=== PATIENT | female | born 1930 ===

== ENCOUNTER 2017-04-29 23:09 | Inpatient (IN) | payer MEDICARE, OTHER ==
[2017-04-29 23:19] VITALS: BMI 25.8
--- NOTE | 2017-04-29 23:37 | ED PDOC ---
Arrival/HPI - General Time Seen by Provider: 04/29/17 23:11 Historian: Family (Daughter) - History of Present Illness Narrative History of Present Illness (Text): 04/29/17 23:34 Vianey Larose is an 86 year old female, whose past medical history includes hypertension, hyperlipidemia, dementia, and NIDDM, who presents to the Emergency department accompanied by daughter complaining of hyperglycemia and foot swelling today. Daughter reports tonight patient had a blood sugar of 570 at the [facility]. Daughter also reports bilateral foot swelling throughout the day. Limited HPI and ROS secondary to patient's dementia. Time/Duration: Other (today) Symptom Onset: Gradual Symptom Course: Unchanged Activities at Onset: Light Context: Home (longterm) Past Medical History - Provider Review Nursing Documentation Reviewed: Yes - Infectious Disease Hx of Infectious Diseases: None - Tetanus Immunization Tetanus Immunization: Up to Date - Past Medical History Past Medical History: No Previous - Cardiac Hx Cardiac Disorders: Yes Hx Hypertension: Yes - Pulmonary Hx Respiratory Disorders: No - Neurological Hx Neurological Disorder: Yes Hx Alzheimer's Disease: Yes Hx Dementia: Yes Other/Comment: bells palsy - HEENT Hx HEENT Disorder: Yes (wears rx glasses) - Renal Hx Renal Disorder: No - Endocrine/Metabolic Hx Diabetes Mellitus Type 2: Yes (iddm) - Hematological/Oncological Hx Blood Disorders: Yes Hx Anemia: Yes - Integumentary Hx Dermatological Disorder: No - Musculoskeletal/Rheumatological Hx Falls: Yes - Gastrointestinal Hx Gastrointestinal Disorders: No - Genitourinary/Gynecological Hx Genitourinary Disorders: Yes Hx Incontinence: Yes Hx Urinary Tract Infection: Yes - Psychiatric Hx Psychophysiologic Disorder: No Hx Substance Use: No - Past Surgical History Past Surgical History: Non-Contributing - Surgical History Hx Hysterectomy: Yes - Anesthesia Hx Anesthesia: Yes Hx Anesthesia Reactions: No Hx Malignant Hyperthermia: No - Suicidal Assessment Feels Threatened In Home Enviroment: No Family/Social History - Physician Review Nursing Documentation Reviewed: Yes Family/Social History: Unknown Family HX Smoking Status: Never Smoked Hx Alcohol Use: No Hx Substance Use: No Hx Substance Use Treatment: No Allergies/Home Meds Allergies/Adverse Reactions: Allergies lisinopril Allergy (Verified 04/29/17 23:21) FATIGUE Home Medications: Home Meds Medication Instructions Recorded Confirmed Amlodipine Besylate [Norvasc] 5 mg PO DAILY 01/26/12 04/29/17 Insulin Human Isophane (NPH)1 3 units SC BID 01/26/12 04/29/17 [Novolin 70/30 70 U/ml-30 U/ml 10 ml] Risperidone 0.5 mg PO DAILY 01/26/12 04/29/17 Memantine [Namenda] 5 mg PO BID 08/25/14 04/29/17 Aspirin [Aspirin Chewable] 81 mg PO DAILY 04/29/17 04/29/17 Atorvastatin [Lipitor] 20 mg PO DAILY 04/29/17 04/29/17 Calcium Carbonate/Vitamin D3 1 tab PO BID 04/29/17 04/29/17 [Caltrate 600 + D Soft Chew Tab] Docusate [Colace] 200 mg PO DAILY 04/29/17 04/29/17 Folic Acid/Vit B Complex and C 1 tab PO DAILY 04/29/17 04/29/17 [Maia-Ester Tablet] Insulin Detemir [Levemir] 15 units SQ Q12H 04/29/17 04/29/17 Montelukast [Singulair] 10 mg PO DAILY 04/29/17 04/29/17 Review of Systems - Review of Systems Systems not reviewed;Unavailable: Dementia Musculoskeletal: Other (+bilateral foot swelling) Hemo/Lymphatic: Other (+hyperglycemia) Physical Exam Vital Signs Reviewed: Yes Vital Signs Temp Pulse Resp BP Pulse Ox 04/30/17 16:00 98.2 F 88 18 146/74 98 04/30/17 11:53 185/90 H 04/30/17 07:17 98.0 F 95 H 19 164/74 H 98 04/30/17 06:21 98.5 F 90 20 175/90 H 04/30/17 05:36 98 F 95 H 20 164/74 H 04/30/17 05:18 97.5 F L 95 H 20 158/77 H 04/30/17 03:56 18 04/30/17 02:22 88 18 168/76 H 99 04/29/17 23:26 98.7 F 94 H 18 184/89 H 99 Temperature: Afebrile Blood Pressure: Hypertensive Pulse: Regular Respiratory Rate: Normal Appearance: Positive for: Well-Appearing, Non-Toxic, Comfortable Pain Distress: None Mental Status: Positive for: other (Alert) - Systems Exam Head: Present: Atraumatic, Normocephalic Pupils: Present: PERRL Extroacular Muscles: Present: EOMI Conjunctiva: Present: Normal Mouth: Present: Moist Mucous Membranes Neck: Present: Normal Range of Motion Respiratory/Chest: Present: Clear to Auscultation, Good Air Exchange. No: Respiratory Distress, Accessory Muscle Use Cardiovascular: Present: Regular Rate and Rhythm, Normal S1, S2. No: Murmurs Abdomen: Present: Normal Bowel Sounds. No: Tenderness, Distention, Peritoneal Signs Back: Present: Normal Inspection Upper Extremity: Present: Normal Inspection. No: Cyanosis, Edema Lower Extremity: Present: NORMAL PULSES, Normal ROM, Swelling (Bilateral foot swelling), Neurovascularly Intact, Capillary Refill < 2 s. No: Edema, CALF TENDERNESS, Cyanosis, Tenderness, Erythema, Deformity, Temperature Abnormalties Neurological: Present: GCS=15, CN II-XII Intact, Speech Normal Skin: Present: Warm, Dry, Normal Color. No: Rashes Psychiatric: Present: Alert Medical Decision Making ED Course and Treatment: 04/29/17 23:34 Impression: 86 year old female brought in for hyperglycemia and bilateral foot swelling today. Plan: -- EKG -- Labs, troponin -- Wound culture -- UA -- Reassess and disposition Prior Visits: Notes and results from previous visits were reviewed. On 04/05/2016, pt was seen in the Emergency department for aggressive behavior and hyperglycemia. Pt was admitted to the hospital for further evaluation. Progress Notes: Reviewed EKG, NSR at 90 bpm. Non-specific ST/T wave changes. 04/30/17 01:39 Reviewed labs, hemoglobin: 7.7, hematocrit: 22.3. Will tranfuse pt. Blood type and screen/crossmatch ordered. 04/30/17 01:[address] Son, who is aware and agrees with plan. Accepts pt in to her service. Pt will go to [facility] observation for anemia and renal insufficiency. - Lab Interpretations Microbiology Results: Microbiology Results 04/29/17 23:35 Foot - Right Gram Stain - Final Lab Results: 04/30/17 00:30 04/30/17 00:30 Lab Results 04/30/17 00:30: PT 11.0, INR 1.02, APTT 24.5 04/30/17 00:30: Sodium 139, Potassium 4.5, Chloride 102, Carbon Dioxide 26, Anion Gap 16, BUN 71 H, Creatinine 4.5 H, Est GFR ( Amer) 11, Est GFR ( Non-Af Amer) 9, Random Glucose 246 H, Calcium 9.9, Total Bilirubin 0.3, AST 33, ALT 33, Alkaline Phosphatase 82, Troponin I < 0.01 D, Total Protein 7.4, Albumin 4.0, Globulin 3.4, Albumin/Globulin Ratio 1.2 04/30/17 00:30: WBC 9.7, RBC 2.60 L, Hgb 7.7 L, Hct 22.3 L, MCV 85.8, MCH 29.6, MCHC 34.5, RDW 13.4, Plt Count 213, MPV 9.6, Gran % 56.6, Lymph % (Auto) 32.7, [place] % (Auto) 6.6 H, Eos % (Auto) 3.9, Baso % (Auto) 0.2, Gran # 5.48, Lymph # 3.2, [place] # 0.6, Eos # 0.4, Baso # 0.02 04/29/17 23:13: POC Glucose (mg/dL) 351 H I have reviewed the lab results: Yes - EKG Interpretation Interpreted by ED Physician: Yes Type: 12 lead EKG - Medication Orders Current Medication Orders: Acetaminophen (Tylenol 325mg Tab) 650 mg PO Q4H PRN PRN Reason: Fever >100.5 F Amlodipine Besylate (Norvasc) 10 mg PO DAILY [facility] Last Admin: 04/30/17 11:53 Dose: 10 mg MAR Blood Pressure Document 04/30/17 11:53 LMN (Rec: 04/30/17 11:55 LMN [id number]) Blood Pressure Blood Pressure (100/60-150/90) 185/90 Aspirin (Aspirin Chewable) 81 mg PO DAILY [facility] Last Admin: 04/30/17 11:53 Dose: 81 mg Atorvastatin Calcium (Lipitor) 20 mg PO DIN [facility] Last Admin: 04/30/17 17:26 Dose: 20 mg Calcium Carbonate (Caltrate) 600 mg PO BID [facility] Last Admin: 04/30/17 17:27 Dose: 600 mg Carvedilol (Coreg) 6.25 mg PO BID [facility] Last Admin: 04/30/17 18:51 Dose: Comments: First dose given late Docusate Sodium (Colace) 200 mg PO DAILY [facility] Last Admin: 04/30/17 11:52 Dose: 200 mg Sodium Chloride (Sodium Chloride 0.9%) 1,000 mls @ 60 mls/hr IV .[id number] [facility] Last Admin: 04/30/17 19:01 Dose: 60 mls/hr eMAR Start Stop Document 04/30/17 19:01 [facility] (Rec: 04/30/17 19:01 [id number] Intravenous Solution Start Date 04/30/17 Start Time 14:30 Insulin Human Regular (Humulin R Low) 0 units SC ACHS [facility] PRN Reason: Protocol Last Admin: 04/30/17 16:28 Dose: 1 units MAR Blood Glucose Document 04/30/17 16:28 LMN (Rec: 04/30/17 16:29 [id number]) Blood Glucose Finger Stick Blood Glucose (70-120) 172 Subcutaneous Administrations Document 04/30/17 16:28 LMN (Rec: 04/30/17 16:29 [id number]) Injection Site MAR Injection Site Left Arm Charges for Administration # of Subcutaneous Administrations 1 Magnesium Hydroxide (Milk Of Magnesia) 30 ml PO DAILY PRN PRN Reason: Constipation Memantine (Namenda) 10 mg PO DAILY [facility] Last Admin: 04/30/17 11:52 Dose: 10 mg Montelukast Sodium (Singulair) 10 mg PO HS [facility] Risperidone (Risperdal Tab) 0.5 mg PO DAILY [facility] PRN Reason: Protocol Last Admin: 04/30/17 11:53 Dose: 0.5 mg Behavioural Document 04/30/17 11:53 LMN (Rec: 04/30/17 11:53 [id number]) Maintenance Maintenance Dose Yes Nonmedicinal Nonmedicinal Interventions Redirect Therapeutic Communication Activity Give food/fluids Re-Assess: Reassess Psych Meds Document 04/30/17 12:53 LMN (Rec: 04/30/17 19:01 [id number] Reassess Psych Med Ineffective-LIP notifed Senna/Docusate Sodium (Senokot S 50 Mg-8.6 Mg) 2 tab PO HS PRN PRN Reason: Constipation Vitamin B Complex/Vit C/Folic Acid (Nephro-Ester) 1 tab PO 0800 [facility] Last Admin: 04/30/17 11:53 Dose: 1 tab Vitamin D (Vitamin D 400 Intl Units Tab) 400 intlu PO BID [facility] Last Admin: 04/30/17 18:52 Dose: 400 intlu Zolpidem Tartrate (Ambien) 5 mg PO HS [facility] PRN Reason: Protocol Discontinued Medications Alprazolam (Xanax) 0.5 mg PO ONCE ONE PRN Reason: Protocol Stop: 04/30/17 13:16 Last Admin: 04/30/17 13:42 Dose: 0.5 mg Behavioural Document 04/30/17 13:42 LMN (Rec: 04/30/17 13:42 LMN [id number]) Maintenance Maintenance Dose No Nonmedicinal Nonmedicinal Interventions Redirect Therapeutic Communication Behavior Behavior for Medication: Anxiety Continuous pacing/restlessness Dangers to self/others Pulling IV lines/tubes/ catheter Re-Assess: Reassess Psych Meds Document 04/30/17 14:42 LMN (Rec: 04/30/17 19:02 LMN [id number]) Reassess Psych Med Effective Lorazepam (Ativan) 0.5 mg IVP ONCE ONE PRN Reason: Protocol Stop: 04/30/17 02:31 Last Admin: 04/30/17 03:20 Dose: 0.5 mg IVP Administration Document 04/30/17 03:20 DANICA (Rec: 04/30/17 03:20 DANICA [id number]) Charges for Administration # of IVP Administrations 1 - Scribe Statement The provider has reviewed the documentation as recorded by the Scribazael Melendez All medical record entries made by the Scribazael were at my direction and personally dictated by me. I have reviewed the chart and agree that the record accurately reflects my personal performance of the history, physical exam, medical decision making, and the department course for this patient. I have also personally directed, reviewed, and agree with the discharge instructions and disposition. Disposition/Present on Arrival - Present on Arrival Any Indicators Present on Arrival: No History of DVT/PE: No History of Uncontrolled Diabetes: No Urinary Catheter: No History Surgical Site Infection Following: None - Disposition Have Diagnosis and Disposition been Completed?: Yes Diagnosis: Renal insufficiency, Anemia Disposition Time: 02:20 Condition: FAIR
[2017-04-30 00:57] LABS: BASO # 0.02 K/mm3 (0.0-2.0); BASO % 0.2 % (0.0-3.0); EOS # 0.4 (0.0-0.7); EOS % 3.9 % (1.5-5.0); GRAN # 5.48 (1.4-6.5); GRAN % 56.6 % (50.0-68.0); LYMPH # 3.2 (1.2-3.4); LYMPH % 32.7 % (22.0-35.0); MEAN CELL VOLUME 85.8 fl (80.0-105.0); MEAN CORPUSCULAR HEMOGLOBIN 29.6 pg (25.0-35.0); MEAN CORPUSCULAR HGB CONC 34.5 g/dl (31.0-37.0); MEAN PLATELET VOLUME 9.6 fl (7.0-11.0); MONO # 0.6 (0.1-0.6); MONO % 6.6 % (1.0-6.0); RED CELL DISTRIBUTION WIDTH 13.4 % (11.5-14.5); WHITE BLOOD COUNT 9.7 10^3/ul (4.5-11.0)
[2017-04-30 01:03] LABS: INR 1.02 (0.93-1.08); PARTIAL THROMBOPLASTIN TIME 24.5 Seconds (23.7-30.8)
[2017-04-30 01:05] LABS: ALB/GLOB RATIO 1.2 (1.1-1.8); ALKALINE PHOSPHATASE 82 U/L (38-126); ALT/SGPT 33 U/L (7-56); AST/SGOT 33 U/L (14-36); BILIRUBIN,TOTAL 0.3 mg/dL (0.2-1.3); BLOOD UREA NITROGEN 71 mg/dL (7-21); CALCIUM 9.9 mg/dL (8.4-10.5); CARBON DIOXIDE 26 mmol/L (21-33); CHLORIDE 102 mmol/L (98-107); GFR AFRICAN-AMERICAN 11; GLUCOSE,RANDOM 246 mg/dL (70-110); POTASSIUM 4.5 mmol/L (3.6-5.0); SODIUM 139 mmol/L (132-148); TOTAL PROTEIN 7.4 g/dL (5.8-8.3)
[2017-04-30 01:06] LABS: HEMATOCRIT 22.3 % (36.0-48.0)
[2017-04-30 01:14] LABS: TROPONIN I < 0.01 ng/mL
[2017-04-30] MEDS: Insulin Reg-LOW-Coverage SC SCH ×4 (08:28→22:00)
[2017-04-30] MEDS: Cholecalciferol 400 Intl Units Tab PO SCH ×2 (11:53→18:52)
[2017-04-30] MEDS: Multivitamin Vitamin B Complex (Nephro-Vite) Tab PO SCH (11:53)
[2017-04-30] MEDS ORDERED: Sodium Chloride 0.9% 1,000 ML IV SCH ×2 (14:00→21:34)
[2017-04-30 14:16] LABS: CALCIUM 9.6 mg/dL (8.4-10.5); POTASSIUM 4.7 mmol/L (3.6-5.0)
[2017-04-30 14:41] LABS: FREE T4 0.82 ng/dL (0.78-2.19)
--- NOTE | 2017-04-30 14:52 | RAD ---
HISTORY: renal failure COMPARISON: Comparison chest 04/05/2017 study is slightly limited by patient rotation and scoliotic deformity convex left FINDINGS: LUNGS: Suspect minor bibasilar atelectasis PLEURA: No significant pleural effusion identified, no pneumothorax apparent. CARDIOVASCULAR: Heart size within normal limits. OSSEOUS STRUCTURES: Multilevel degenerative spondylosis of the thoracic spine with levoscoliosis VISUALIZED UPPER ABDOMEN: Normal. OTHER FINDINGS: None. IMPRESSION: Suspect minor bibasilar atelectasis
[2017-04-30 14:55] LABS: THYROID STIMULATING HORMONE 1.89 mIU/mL (0.46-4.68)
--- NOTE | 2017-04-30 16:10 | US ---
PROCEDURE: Ultrasound of the Kidneys HISTORY: Worsening renal function COMPARISON: None available. TECHNIQUE: Sonogram of the kidneys. FINDINGS: RIGHT KIDNEY: Measures: Approximately 9.8 x 4.3 x 5.4 cm. Normal in size and contour. The renal parenchyma is echogenic consistent with underlying medical renal disease No stone, solid mass lesion or hydronephrosis visualized. LEFT KIDNEY: Measures: 9.7 x 4.2 x 5.1 cm. Normal in size and contour. The renal parenchyma is echogenic consistent with underlying medical renal disease No stone, solid mass lesion or hydronephrosis visualized. OTHER FINDINGS: None. IMPRESSION: Findings consistent with underlying medical renal disease. No evidence of nephrolithiasis or hydronephrosis
[2017-04-30 21:01] LABS: VITAMIN D 25 OH TOTAL 22.4 NG/ML (30.0-100.0)
[2017-04-30] MEDS ORDERED: Albuterol-Ipratrop 3 mg / 0.5 (3 ml) UD IH PRN (21:33)
[2017-04-30] MEDS ORDERED: Docusate-Senna 50 mg-8.6 mg Tab PO PRN (22:00)
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
--- NOTE | 2017-05-01 03:35 | CON ---
PULMONARY CONSULTATION DATE: 04/30/2017 REFERRING PHYSICIAN: Jaqui Son MD REASON FOR CONSULTATION: Cough, shortness of breath, hyperglycemia, and renal failure. HISTORY OF PRESENT ILLNESS: This is an 86-year-old female who is a long term resident with hypertension, hyperlipidemia, dementia, and history of diabetes, came in to emergency room with daughter confused and agitated. According to daughter, her blood sugar was over 500 in the long term. There is some leg swelling present. She is lying in the bed, granddaughter at bedside, she is confused and on supervision and has some cough noted by sputum production. No hemoptysis. No hematemesis. No hematuria. No diarrhea reported. PAST MEDICAL HISTORY: Alzheimer type dementia, diabetes, hyperlipidemia, hypertension, anemia, and history of falls. FAMILY HISTORY: No significant cardiopulmonary disease is reported. SOCIAL HISTORY: senior vice president and chief information officer. No history of smoking or alcohol use. ALLERGIES: LISINOPRIL. MEDICATIONS: She is on Ambien 5 mg at bedtime, aspirin 81 mg daily, calcium carbonate 600 mg twice a day, Colace 200 mg daily, Coreg 6.25 mg twice a day, insulin coverage, Lipitor 20 mg daily, milk of magnesia p.o. p.r.n., Namenda 10 mg daily, Nephro vitamins daily, Norvasc 10 mg daily, Risperdal 0.5 mg daily, Senokot at bedtime, Singulair 10 mg at bedtime, IV fluids, normal saline 60 mL per hour, Tylenol p.r.n., and vitamin D 400 international units twice a day. REVIEW OF SYSTEMS: She is confused and has some cough. No sputum production. No hemoptysis or hematemesis. No hematuria. No diarrhea. Has some leg swelling. PHYSICAL EXAMINATION: GENERAL: No acute distress. VITAL SIGNS: Temperature is 98, heart rate is 88, respiratory rate is 20, blood pressure is 146/74, and pulse ox is 98% on room air. HEENT: Small oral cavity. Crowded airway. NECK: Supple. No JVD. LUNGS: Has diffuse scattered rhonchi. HEART: S1 and S2. ABDOMEN: Soft and nontender. No organomegaly. EXTREMITIES: Not much edema. NEUROLOGIC: Awake, alert, and does not follow command and confused. LABORATORY DATA: Shows hemoglobin 7.7, hematocrit 22.3, WBC 9.7, and platelets 213. INR 1.02. PTT 25. Sodium 140, potassium 4.7, chloride 105, bicarbonate 23, BUN 70, creatinine 4.2, glucose 109, calcium is 9.6, iron is 226, ferritin is 49, vitamin B12 is 22, T4 free is 0.8, and TSH is 1.89. Complement C3 is 108. Complement C4 is 37.2. Chest x-ray shows suspected minor basilar atelectasis. IMPRESSION AND PLAN: Renal failure, hyperglycemia, have acute bronchitis, Alzheimer type dementia, hypertension, and hypothyroid. Case discussed with the family at bedside. All the questions answered. We will add inhaled bronchodilators. Keep head at 45 degrees. Aspiration precaution. We will get swallow evaluation, IV fluids, Renal consult, followup electrolytes, and fall precaution. Thank you and we will follow with you. Austin Hurst MD
--- NOTE | 2017-05-01 08:12 | HP ---
CHIEF COMPLAINT: Glucose level is more than 500, fatigue, tired and altered mental status. HISTORY OF PRESENT ILLNESS: Ms. Vianey Larose, my private patient is an 86-year-old resident of [facility], has history of hypertension, hypercholesterolemia, dementia, non-insulin dependent diabetes mellitus. I was informed from senior living the patient's sugar level is more than 500 and she has change in the mental status, shortness of breath and then I brought the patient into emergency room. The patient has foot swelling, right big toe has ulceration and swelling of the leg while we admitted to the patient. Start her on sliding scale. Podiatry consult called. Length of time discussion done with the patient's daughter. PAST MEDICAL HISTORY: Hypertension, dementia, Ramirez's palsy, diabetes mellitus type 2, anemia, urinary incontinence, and hysterectomy. FAMILY HISTORY: Father and mother, noncontributory. HABITS: No smoking, no drugs or ethanol. ALLERGIES: THE PATIENT IS ALLERGIC WITH LISINOPRIL. HOME MEDICATIONS: Amlodipine, insulin, risperidone, Namenda, aspirin, Lipitor, Colace, Levemir, and Singulair. REVIEW OF SYSTEMS: The patient seen and examined at the bedside. Bilateral foot swelling, altered mental status. The patient is not able to give review of systems. Do not look like fever. Daughter, grand daughter and grand son is on the bedside. PHYSICAL EXAMINATION: VITAL SIGNS: Temperature 98.7, pulse 94, respiratory rate 18, blood pressure 184/89, pulse oximetry 99%. HEENT: Head is normocephalic and atraumatic. Eyes; PERRLA. Extraocular muscles intact. Conjunctivae clear. Nose patent. Mucous membranes moist. NECK: Supple. No carotid bruits. No JVD or thyromegaly. CHEST: Bilaterally symmetrical. HEART: S1, S2 positive. LUNGS: Clear to auscultation. ABDOMEN: Soft. Bowel sounds positive. No organomegaly. EXTREMITIES: Positive edema. Bilateral feet swelling, ulceration on right foot big toe. NEUROLOGIC: The patient is awake, alert, but confused. LABORATORY DATA: White blood cells 9.7, hemoglobin 7.7, hematocrit 22.3, platelets 213. Sodium 130, potassium 4.5, BUN 71, creatinine 4.5, glucose 246. ASSESSMENT AND PLAN: Ms. Vianey Larose is an 86-year-old lady with anemia, status post blood transfusion, renal insufficiency, uncontrolled insulin dependent diabetes mellitus. We admitted the patient. Renal ultrasound done. Consult called with finishing machine operator and podiatry, nonhealing ulcer, history of hypertension, hypercholesterolemia. Length of time discussion done with the patient's daughter. Later on, the patient was very restless, gave 1 dose of Xanax. The patient needs to seen by Dr. Aniket Holcomb. According to the daughter, the patient has insomnia, Ambien given, started on aspirin, Colace, carvedilol. For hypercholesterolemia, started on Lipitor. Gastrointestinal and deep venous thrombosis prophylaxis. Repeat labs. We will followup. Jaqui Son MD
[2017-05-01] MEDS: Insulin Reg-LOW-Coverage SC SCH ×4 (08:17→21:07)
[2017-05-01] MEDS: Multivitamin Vitamin B Complex (Nephro-Vite) Tab PO SCH (08:17)
[2017-05-01 09:52] LABS: HEMATOCRIT 25.9 % (36.0-48.0); MEAN CELL VOLUME 85.8 fl (80.0-105.0); MEAN CORPUSCULAR HEMOGLOBIN 29.1 pg (25.0-35.0); MEAN PLATELET VOLUME 9.9 fl (7.0-11.0); RED CELL DISTRIBUTION WIDTH 13.4 % (11.5-14.5); WHITE BLOOD COUNT 10.1 10^3/ul (4.5-11.0)
[2017-05-01 09:59] LABS: ALB/GLOB RATIO 1.1 (1.1-1.8); BILIRUBIN,TOTAL 0.4 mg/dL (0.2-1.3); CALCIUM 8.8 mg/dL (8.4-10.5); POTASSIUM 4.3 mmol/L (3.6-5.0); TOTAL PROTEIN 6.4 g/dL (5.8-8.3)
[2017-05-01] MEDS: Cholecalciferol 400 Intl Units Tab PO SCH ×2 (10:19→17:08)
--- NOTE | 2017-05-01 12:19 | CP.PCM.CON ---
<Jhonny Guallpa - Last Filed: 05/02/17 09:22> History of Present Illness - History of Present Illness History of Present Illness: 86 year old female with PMHx of Alzheimer, DM, HTN, hyperlipidema, anemia, and osteoporosis was seen at bedside with daughter present for left leg and foot pain and bilaterally foot wounds. Patient is unresponsive and appeared confused to questions during the time of encounter. Subjective examination was obtained from daugther who was visiting during the time of encounter. Daugther reports mother has had left lower extremity pain for 2 weeks s/p fall at a long-term. Patient is residing at a long-term. Complains of pain with ambulating and decrease pain with sitting or laying in bed. Daughter reports she has not have x-rays of the left lower extremity with the recent fall. Reports mother's pain is inhibiting her from ambulating. PSH: Hysterectomy, Right Femur ORIF Meds: see medication list ALL: lisinopril, shrimp FH: DM, alzheimer, stomach cancer SH: no drinking, no smoking or elicited drug use Past Patient History - Infectious Disease Hx of Infectious Diseases: None - Tetanus Immunizations Tetanus Immunization: Up to Date - Past Social History Smoking Status: Never Smoked - CARDIAC Hx Cardiac Disorders: Yes Hx Hypertension: Yes - PULMONARY Hx Respiratory Disorders: No - NEUROLOGICAL Hx Neurological Disorder: Yes Hx Alzheimer's Disease: Yes Hx Dementia: Yes Other/Comment: bells palsy - HEENT Hx HEENT Problems: Yes (wears rx glasses) - RENAL Hx Chronic Kidney Disease: No - ENDOCRINE/METABOLIC Hx Diabetes Mellitus Type 2: Yes (iddm) - HEMATOLOGICAL/ONCOLOGICAL Hx Blood Disorders: Yes Hx Anemia: Yes - INTEGUMENTARY Hx Dermatological Problems: No - MUSCULOSKELETAL/RHEUMATOLOGICAL Hx Falls: Yes - GASTROINTESTINAL Hx Gastrointestinal Disorders: No - GENITOURINARY/GYNECOLOGICAL Hx Genitourinary Disorders: Yes Hx Incontinence: Yes Hx Urinary Tract Infection: Yes - PSYCHIATRIC Hx Psychophysiologic Disorder: No Hx Substance Use: No - SURGICAL HISTORY Hx Hysterectomy: Yes - ANESTHESIA Hx Anesthesia: Yes Hx Anesthesia Reactions: No Hx Malignant Hyperthermia: No Meds Allergies/Adverse Reactions: Allergies Allergy/AdvReac Type Severity Reaction Status Date / Time lisinopril Allergy FATIGUE Verified 04/29/17 23:21 - Medications Medications: Current Medications Acetaminophen (Tylenol 325mg Tab) 650 mg PO Q4H PRN PRN Reason: Fever >100.5 F Albuterol/Ipratropium (Duoneb 3 Mg/0.5 Mg (3 Ml) Ud) 3 ml IH [id number] PRN PRN Reason: Sore Throat Amlodipine Besylate (Norvasc) 10 mg PO DAILY [facility] Last Admin: 05/01/17 10:18 Dose: 10 mg Aspirin (Aspirin Chewable) 81 mg PO DAILY [facility] Last Admin: 05/01/17 10:16 Dose: 81 mg Atorvastatin Calcium (Lipitor) 20 mg PO DIN [facility] Last Admin: 04/30/17 17:26 Dose: 20 mg Calcium Carbonate (Caltrate) 600 mg PO BID [facility] Last Admin: 05/01/17 10:17 Dose: 600 mg Carvedilol (Coreg) 12.5 mg PO BID [facility] Last Admin: 05/01/17 10:17 Dose: 12.5 mg Docusate Sodium (Colace) 200 mg PO DAILY [facility] Last Admin: 05/01/17 10:17 Dose: 200 mg Insulin Human Regular (Humulin R Low) 0 units SC [facility] PRN Reason: Protocol Last Admin: 05/01/17 08:17 Dose: 2 units Magnesium Hydroxide (Milk Of Magnesia) 30 ml PO DAILY PRN PRN Reason: Constipation Memantine (Namenda) 10 mg PO DAILY [facility] Last Admin: 05/01/17 10:18 Dose: 10 mg Montelukast Sodium (Singulair) 10 mg PO HS [facility] Last Admin: 04/30/17 21:38 Dose: 10 mg Risperidone (Risperdal Tab) 0.5 mg PO DAILY [facility] PRN Reason: Protocol Last Admin: 05/01/17 10:19 Dose: 0.5 mg Senna/Docusate Sodium (Senokot S 50 Mg-8.6 Mg) 2 tab PO HS PRN PRN Reason: Constipation Vitamin B Complex/Vit C/Folic Acid (Nephro-Ester) 1 tab PO 0800 [facility] Last Admin: 05/01/17 08:17 Dose: 1 tab Vitamin D (Vitamin D 400 Intl Units Tab) 400 intlu PO BID [facility] Last Admin: 05/01/17 10:19 Dose: 400 intlu Zolpidem Tartrate (Ambien) 5 mg PO HS [facility] PRN Reason: Protocol Last Admin: 05/01/17 00:47 Dose: 5 mg Physical Exam - Constitutional Appears: Well, Non-toxic, No Acute Distress - Extremities Exam Additional comments: VASC: DP and PT 2/4 bilaterally, temperature warm to cool from proximal knees to distal toes, digital hair noted, CFT <3 seconds x10 digits, edema noted bilaterally Ortho: unable to obtain secondary to unresponsiveness Neuro: unable to obtain secondary to unresponsiveness Derm: Left: eschar ulceration noted to the medial aspect of 1st metatarsal head, measuring approximately 1 cm x .5 cm. Wound edges are hyperkeratotic and intact with no opening or dehiscence noted, no erythema or ascending cellulitis , no tunneling, no undermining, no fluctuance or absecess noted. No clinical signs of infection noted. Right: eschar ulceration noted to the medial aspect of 1st metatarsal head, measuring approximately .5 cm x .5 cm. Wound edges are hyperkeratotic and intact with no opening or dehiscence noted, no erythema or ascending cellulitis , no tunneling, no undermining, no fluctuance or absecess noted. No clinical signs of infection noted. - Psychiatric Exam Psychiatric exam: Flat Affect, Normal Mood Results - Vital Signs Recent Vital Signs: Last Vital Signs Temp 97.8 F 05/01/17 10:00 Pulse 90 05/01/17 10:17 Resp 17 05/01/17 10:00 BP 187/88 H 05/01/17 10:18 Pulse Ox 100 05/01/17 08:15 - Labs Result Diagrams: 05/01/17 09:20 05/01/17 09:20 Labs: Laboratory Results - last 24 hr 04/30/17 04/30/17 04/30/17 07:25 08:00 11:32 WBC RBC Hgb Hct MCV MCH MCHC RDW Plt Count MPV Sodium Potassium Chloride Carbon Dioxide Anion Gap BUN Creatinine Est GFR ( Amer) Est GFR (Non-Af Amer) POC Glucose (mg/dL) 210 H 290 H Random Glucose Calcium Phosphorus 4.2 Iron TIBC % Saturation Ferritin Total Bilirubin AST ALT Alkaline Phosphatase Total Protein Albumin Globulin Albumin/Globulin Ratio 25-OH Vitamin D Total Free T4 TSH 3rd Generation Complement C3 Complement C4 Hep Bs Antigen Hepatitis C Antibody 04/30/17 04/30/17 04/30/17 13:40 13:40 14:00 WBC RBC Hgb Hct MCV MCH MCHC RDW Plt Count MPV Sodium 140 Potassium 4.7 Chloride 105 Carbon Dioxide 23 Anion Gap 17 BUN 70 H Creatinine 4.2 H Est GFR ( Amer) 12 Est GFR (Non-Af Amer) 10 POC Glucose (mg/dL) Random Glucose 229 H Calcium 9.6 Phosphorus Iron 226 H TIBC 212 L % Saturation 107 H Ferritin 59.8 Total Bilirubin AST ALT Alkaline Phosphatase Total Protein Albumin Globulin Albumin/Globulin Ratio 25-OH Vitamin D Total 22.4 L Free T4 TSH 3rd Generation Complement C3 Complement C4 Hep Bs Antigen Negative Hepatitis C Antibody Reactive 04/30/17 04/30/17 04/30/17 14:00 15:51 21:17 WBC RBC Hgb Hct MCV MCH MCHC RDW Plt Count MPV Sodium Potassium Chloride Carbon Dioxide Anion Gap BUN Creatinine Est GFR ( Amer) Est GFR (Non-Af Amer) POC Glucose (mg/dL) 172 H 109 Random Glucose Calcium Phosphorus Iron TIBC % Saturation Ferritin Total Bilirubin AST ALT Alkaline Phosphatase Total Protein Albumin Globulin Albumin/Globulin Ratio 25-OH Vitamin D Total Free T4 0.82 TSH 3rd Generation 1.89 Complement C3 108.0 Complement C4 37.2 Hep Bs Antigen Hepatitis C Antibody 05/01/17 05/01/17 05/01/17 07:15 09:20 09:20 WBC 10.1 RBC 3.02 L Hgb 8.8 L Hct 25.9 L MCV 85.8 MCH 29.1 MCHC 34.0 RDW 13.4 Plt Count 184 MPV 9.9 Sodium 141 Potassium 4.3 Chloride 111 H Carbon Dioxide 21 Anion Gap 13 BUN 66 H Creatinine 4.0 H Est GFR ( Amer) 13 Est GFR (Non-Af Amer) 11 POC Glucose (mg/dL) 232 H Random Glucose 232 H Calcium 8.8 Phosphorus Iron TIBC % Saturation Ferritin Total Bilirubin 0.4 AST 31 ALT 35 Alkaline Phosphatase 59 Total Protein 6.4 Albumin 3.3 Globulin 3.1 Albumin/Globulin Ratio 1.1 25-OH Vitamin D Total Free T4 TSH 3rd Generation Complement C3 Complement C4 Hep Bs Antigen Hepatitis C Antibody 05/01/17 05/01/17 10:30 11:11 WBC RBC Hgb Hct MCV MCH MCHC RDW Plt Count MPV Sodium Potassium Chloride Carbon Dioxide Anion Gap BUN Creatinine Est GFR ( Amer) Est GFR (Non-Af Amer) POC Glucose (mg/dL) 263 H 240 H Random Glucose Calcium Phosphorus Iron TIBC % Saturation Ferritin Total Bilirubin AST ALT Alkaline Phosphatase Total Protein Albumin Globulin Albumin/Globulin Ratio 25-OH Vitamin D Total Free T4 TSH 3rd Generation Complement C3 Complement C4 Hep Bs Antigen Hepatitis C Antibody Assessment & Plan - Assessment and Plan (Free Text) Assessment: 86 year old female with PMHx of Alzheimer, DM, HTN, hyperlipidema, anemia, and osteoporosis was seen at bedside for eschar ulceration at medial aspect of 1st MPJ b/l and left lower extremity pain s/p fall. Plan: Patient seen and examined at bedside. Charts, labs, vitals reviewed- (afebrile, WBC=10.1) Discussed plan in detail with attending Dr. Joseph. X-rays ordered to r/o bony pathology- no fracture noted Ulceration cleansed with saline, and optifoam applied to offload ulceration. Will apply xeroform and optifoam with dressing change tomorrow. Will order Multipodus boots, wear at all times when in bed. Will continue to follow while in house Thank you for the consult <Nathaniel Joseph - Last Filed: 05/02/17 11:09> Meds - Medications Medications: Current Medications Acetaminophen (Tylenol 325mg Tab) 650 mg PO Q4H PRN PRN Reason: Fever >100.5 F Albuterol/Ipratropium (Duoneb 3 Mg/0.5 Mg (3 Ml) Ud) 3 ml IH [id number] PRN PRN Reason: Sore Throat Amlodipine Besylate (Norvasc) 10 mg PO DAILY [facility] Last Admin: 05/02/17 10:21 Dose: 10 mg Aspirin (Aspirin Chewable) 81 mg PO DAILY [facility] Last Admin: 05/02/17 10:15 Dose: 81 mg Atorvastatin Calcium (Lipitor) 20 mg PO DIN [facility] Last Admin: 05/01/17 17:07 Dose: 20 mg Calcium Carbonate (Caltrate) 600 mg PO BID [facility] Last Admin: 05/02/17 10:15 Dose: 600 mg Carvedilol (Coreg) 12.5 mg PO BID [facility] Last Admin: 05/02/17 10:15 Dose: 12.5 mg Docusate Sodium (Colace) 200 mg PO DAILY [facility] Last Admin: 05/02/17 10:14 Dose: 200 mg Insulin Human Regular (Humulin R Low) 0 units SC [facility] PRN Reason: Protocol Last Admin: 05/02/17 08:09 Dose: 3 units Magnesium Hydroxide (Milk Of Magnesia) 30 ml PO DAILY PRN PRN Reason: Constipation Last Admin: 05/01/17 17:15 Dose: 30 ml Memantine (Namenda) 10 mg PO DAILY [facility] Last Admin: 05/02/17 10:21 Dose: 10 mg Montelukast Sodium (Singulair) 10 mg PO HS [facility] Last Admin: 05/01/17 21:37 Dose: 10 mg Risperidone (Risperdal Tab) 0.5 mg PO DAILY [facility] PRN Reason: Protocol Last Admin: 05/02/17 10:21 Dose: 0.5 mg Senna/Docusate Sodium (Senokot S 50 Mg-8.6 Mg) 2 tab PO HS PRN PRN Reason: Constipation Vitamin B Complex/Vit C/Folic Acid (Nephro-Ester) 1 tab PO 0800 [facility] Last Admin: 05/02/17 08:09 Dose: 1 tab Vitamin D (Vitamin D 400 Intl Units Tab) 400 intlu PO BID [facility] Last Admin: 05/02/17 10:15 Dose: 400 intlu Zolpidem Tartrate (Ambien) 5 mg PO HS [facility] PRN Reason: Protocol Last Admin: 05/01/17 21:37 Dose: 5 mg Results - Vital Signs Recent Vital Signs: Last Vital Signs Temp 98 F 05/01/17 16:00 Pulse 74 05/02/17 10:15 Resp 20 05/01/17 16:00 BP 183/82 H 05/02/17 10:21 Pulse Ox 99 05/01/17 16:00 - Labs Result Diagrams: 05/02/17 10:00 05/02/17 10:00 Labs: Laboratory Results - last 24 hr 05/02/17 05/02/17 05/02/17 07:28 10:00 10:00 WBC 9.6 RBC 3.14 L Hgb 9.3 L Hct 27.2 L MCV 86.6 MCH 29.6 MCHC 34.2 RDW 13.5 Plt Count 189 MPV 9.6 Gran % 61.4 Lymph % (Auto) 28.0 [place] % (Auto) 6.2 H Eos % (Auto) 4.0 Baso % (Auto) 0.4 Gran # 5.91 Lymph # 2.7 [place] # 0.6 Eos # 0.4 Baso # 0.04 Sodium 140 Potassium 4.6 Chloride 109 H Carbon Dioxide 23 Anion Gap 13 BUN 61 H Creatinine 3.8 H Est GFR ( Amer) 14 Est GFR (Non-Af Amer) 11 POC Glucose (mg/dL) 296 H Random Glucose 337 H* D Calcium 9.2 Phosphorus 4.0 Total Bilirubin 0.3 AST 29 ALT 37 Alkaline Phosphatase 63 Total Protein 6.4 Albumin 3.3 Globulin 3.1 Albumin/Globulin Ratio 1.1 Attending/Attestation - Attestation I have personally seen and examined this patient.: Yes I have fully participated in the care of the patient.: Yes I have reviewed all pertinent clinical information: Yes
--- NOTE | 2017-05-01 12:27 | CARD ---
APPROVED REPORT EKG Measurement Heart [id number] <Conclusion> Normal sinus rhythm Moderate voltage criteria for LVH, may be normal variant Borderline ECG
--- NOTE | 2017-05-01 13:03 | RAD ---
PROCEDURE: Bilateral Feet Radiographs. HISTORY: right foot pain and swelling COMPARISON: None. FINDINGS: BONES: Right Foot: Normal. No fracture. Left Foot: Normal. No fracture. JOINTS: Right Foot: Normal. No osteoarthritis. Left Foot: Normal. No osteoarthritis. SOFT TISSUES: Right Foot: Normal. Left Foot: Normal. OTHER FINDINGS: None. IMPRESSION: Normal radiographs of the feet.
[2017-05-01] MEDS: Magnesium Hydroxide Susp 30 ml UD PO PRN (17:15)
[2017-05-01 20:59] LABS: URINE BILIRUBIN NEGATIVE (NEGATIVE); URINE BLOOD SMALL (NEGATIVE); URINE GLUCOSE (UA) 100 mg/dL (NEGATIVE); URINE KETONE NEGATIVE (NEGATIVE); URINE LEUKOCYTE ESTERASE NEGATIVE Leu/uL (NEGATIVE); URINE PROTEIN 100 mg/dL (<30 mg/dL); URINE UROBILINOGEN 0.2 E.U./dL (<1 E.U./dL)
[2017-05-01 21:00] LABS: URINE APPEARANCE CLEAR (CLEAR); URINE COLOR LIGHT YELLOW (YELLOW)
[2017-05-01 21:20] LABS: URINE BACTERIA MOD (NEG)
[2017-05-01 22:21] LABS: CALCIUM 9.4 mg/dL (8.6-10.4)
--- NOTE | 2017-05-01 22:26 | CP.PCM.PN ---
Objective - Vital Signs/Intake and Output Vital Signs (last 24 hours): Temp Pulse Resp BP Pulse Ox 98 F 86 20 144/80 99 05/01/17 16:00 05/01/17 17:07 05/01/17 16:00 05/01/17 17:07 05/01/17 16:00 Intake and Output: 05/01/17 05/02/17 18:59 06:59 Intake Total 360 360 Output Total 300 Balance 360 60 - Medications Medications: Current Medications Acetaminophen (Tylenol 325mg Tab) 650 mg PO Q4H PRN PRN Reason: Fever >100.5 F Albuterol/Ipratropium (Duoneb 3 Mg/0.5 Mg (3 Ml) Ud) 3 ml IH [id number] PRN PRN Reason: Sore Throat Amlodipine Besylate (Norvasc) 10 mg PO DAILY [facility] Last Admin: 05/01/17 10:18 Dose: 10 mg Aspirin (Aspirin Chewable) 81 mg PO DAILY [facility] Last Admin: 05/01/17 10:16 Dose: 81 mg Atorvastatin Calcium (Lipitor) 20 mg PO DIN [facility] Last Admin: 05/01/17 17:07 Dose: 20 mg Calcium Carbonate (Caltrate) 600 mg PO BID [facility] Last Admin: 05/01/17 17:08 Dose: 600 mg Carvedilol (Coreg) 12.5 mg PO BID [facility] Last Admin: 05/01/17 17:07 Dose: 12.5 mg Docusate Sodium (Colace) 200 mg PO DAILY [facility] Last Admin: 05/01/17 10:17 Dose: 200 mg Insulin Human Regular (Humulin R Low) 0 units SC [facility] PRN Reason: Protocol Last Admin: 05/01/17 21:07 Dose: Not Given Magnesium Hydroxide (Milk Of Magnesia) 30 ml PO DAILY PRN PRN Reason: Constipation Last Admin: 05/01/17 17:15 Dose: 30 ml Memantine (Namenda) 10 mg PO DAILY [facility] Last Admin: 05/01/17 10:18 Dose: 10 mg Montelukast Sodium (Singulair) 10 mg PO HS [facility] Last Admin: 05/01/17 21:37 Dose: 10 mg Risperidone (Risperdal Tab) 0.5 mg PO DAILY [facility] PRN Reason: Protocol Last Admin: 05/01/17 10:19 Dose: 0.5 mg Senna/Docusate Sodium (Senokot S 50 Mg-8.6 Mg) 2 tab PO HS PRN PRN Reason: Constipation Vitamin B Complex/Vit C/Folic Acid (Nephro-Ester) 1 tab PO 0800 [facility] Last Admin: 05/01/17 08:17 Dose: 1 tab Vitamin D (Vitamin D 400 Intl Units Tab) 400 intlu PO BID [facility] Last Admin: 05/01/17 17:08 Dose: 400 intlu Zolpidem Tartrate (Ambien) 5 mg PO HS [facility] PRN Reason: Protocol Last Admin: 05/01/17 21:37 Dose: 5 mg - Labs Labs: 05/01/17 09:20 05/01/17 09:20 PT 11.0 Seconds (9.9-11.8) 04/30/17 00:30 INR 1.02 (0.93-1.08) 04/30/17 00:30 APTT 24.5 Seconds (23.7-30.8) 04/30/17 00:30
--- NOTE | 2017-05-02 00:33 | PN ---
DATE: 05/01/2017 PULMONARY PROGRESS NOTE REFERRING PHYSICIAN: Dr. Son. SUBJECTIVE: She is lying in the bed, sleepy, arousable, follows simple command, but confused. Daughter is at the bedside. Patient is a high risk for fall and at times becomes agitated. There is no much cough. No sputum production. No hemoptysis or hematemesis. No hematuria or diarrhea reported. PHYSICAL EXAMINATION GENERAL: No acute distress. VITAL SIGNS: Temperature is 98, heart rate 86, respiratory rate is 20, blood pressure 144/80, pulse ox 99% on room air. HEENT: Moist mucous membranes. No ulcer or thrush noted. NECK: Supple. No JVD. LUNGS: Fair airflow with few rhonchi. HEART: S1, S2. ABDOMEN: Soft, nontender. No organomegaly. EXTREMITIES: No edema. NEUROLOGIC: Sleepy, arousable. Follows simple commands. MEDICATIONS: She is on Ambien 5 mg at night, aspirin 81 mg daily, calcium 600 mg twice a day, Colace 200 mg daily, Coreg 12.5 mg twice a day, DuoNeb q. 6 hours p.r.n., insulin coverage, Lipitor 20 mg daily, milk of magnesia 30 mL daily p.r.n., Namenda 10 mg daily, Nephro-vitamins daily, Norvasc 10 mg daily, Risperdal 0.5 mg daily, Senokot p.r.n. basis, Singulair 10 mg daily, Tylenol p.r.n. basis, vitamin D 400 International Units twice a day. LABORATORY DATA: Shows hemoglobin 8.8, hematocrit 25.9. WBC 10.1, platelet is 184. Sodium 141, potassium 4.3, chloride 111, bicarbonate 21, BUN 66, creatinine 4.0. Glucose is 232, calcium 8.8, total bilirubin 0.4, AST 31, ALT 35, alkaline phosphatase is 59, albumin is 3.3. Wound from the foot ulcer, there is no growth. Had a foot x-ray done, which is normal x-ray. IMPRESSION AND PLAN: Renal failure, hyperglycemia, acute bronchitis, Alzheimer type dementia, hypertension, hypothyroid. Spoke to patient's daughter at bedside, all the questions answered. Also spoke to nursing staff, fall precautions, keep head elevated at 45 degrees, high risk for fall. Austin Hurst MD [facility] # [id number]
[2017-05-02 01:06] LABS: TOTAL PROTEIN, SERUM 6.2 g/dL (6.1-8.1)
--- NOTE | 2017-05-02 03:26 | PN ---
DATE: SUBJECTIVE: The patient is an 86-year-old female. The patient was seen and examined on the bedside, looking comfortable, getting anxious. No nausea, vomiting, diarrhea. No hematuria or hematochezia. No headache. No dizziness. No chest pain. No palpitation. PHYSICAL EXAMINATION: VITAL SIGNS: Temperature 98.0, pulse 83, blood pressure 144/80, respiratory rate 20. HEENT: Head is normocephalic, atraumatic. Eyes; PERRLA. Extraocular muscles intact. Conjunctivae clear. Nose patent. Mucous membrane moist. NECK: Supple. No carotid bruits. No JVD or thyromegaly. CHEST: Bilaterally symmetrical. HEART: S1 and S2 positive. LUNGS: Clear to auscultation. ABDOMEN: Soft. Bowel sounds positive. No organomegaly. EXTREMITIES: No edema. No cyanosis. NEUROLOGIC: The patient is awake and alert. Moving all four extremities. No focal deficit. MEDICATIONS: Ambien, aspirin, Caltrate, Colace, Coreg, DuoNeb, insulin, Lipitor, milk of magnesia, Namenda, amlodipine, risperidone, Senokot, Singulair, Tylenol, vitamin B. LABORATORY DATA: White blood cells 10.1, hemoglobin 8.8, hematocrit 25.9, platelets 184. Sodium 141, potassium 4.3, BUN 56, creatinine 4.0, glucose 223, 171, 242, 63. ASSESSMENT AND PLAN: Mrs. Vianey Larose is an 86-year-old lady with symptomatic anemia, hyperchloremia, renal insufficiency, uncontrolled diabetes mellitus, proteuria, glucosuria, hematuria, has hepatitis C positive, seen by Dr. Aniket Holcomb, Automatic Serging Machine Operator, went for x-ray of the foot according to Dr. Jack Muñoz. Normal radiographs of the foot. Seen by the Director Of Compliance. The patient has history of insomnia, anxiety, getting Xanax, acute bronchitis, dementia, hypothyroidism. Dr. Hurst added inhaled bronchodilators, aspiration precautions. Meanwhile, continue present treatment. Gastrointestinal and deep venous thrombosis prophylaxis. Spotter Driver on the case. We will follow up. Jaqui Son MD
[2017-05-02] MEDS: Multivitamin Vitamin B Complex (Nephro-Vite) Tab PO SCH (08:09)
[2017-05-02] MEDS: Insulin Reg-LOW-Coverage SC SCH ×3 (08:09→17:29)
[2017-05-02] MEDS: Cholecalciferol 400 Intl Units Tab PO SCH ×2 (10:15→17:29)
[2017-05-02 10:22] LABS: BASO # 0.04 K/mm3 (0.0-2.0); BASO % 0.4 % (0.0-3.0); EOS # 0.4 (0.0-0.7); GRAN # 5.91 (1.4-6.5); GRAN % 61.4 % (50.0-68.0); HEMATOCRIT 27.2 % (36.0-48.0); LYMPH # 2.7 (1.2-3.4); MEAN CELL VOLUME 86.6 fl (80.0-105.0); MEAN CORPUSCULAR HEMOGLOBIN 29.6 pg (25.0-35.0); MEAN CORPUSCULAR HGB CONC 34.2 g/dl (31.0-37.0); MEAN PLATELET VOLUME 9.6 fl (7.0-11.0); MONO # 0.6 (0.1-0.6); MONO % 6.2 % (1.0-6.0); RED CELL DISTRIBUTION WIDTH 13.5 % (11.5-14.5); WHITE BLOOD COUNT 9.6 10^3/ul (4.5-11.0)
[2017-05-02 10:33] LABS: ALB/GLOB RATIO 1.1 (1.1-1.8); BILIRUBIN,TOTAL 0.3 mg/dL (0.2-1.3); CALCIUM 9.2 mg/dL (8.4-10.5); POTASSIUM 4.6 mmol/L (3.6-5.0); TOTAL PROTEIN 6.4 g/dL (5.8-8.3)
--- NOTE | 2017-05-02 11:38 | CP.PCM.PN ---
Subjective - Date & Time of Evaluation Date of Evaluation: 05/02/17 Time of Evaluation: 11:33 - Subjective Subjective: 86 yo F w/ htn, dm, CKD V, admitted with hyperglycemia and lethargy; Patient reportedly eating well (assisted); ambulates to commode; history otherwise difficult to obtain from patient; Objective - Vital Signs/Intake and Output Vital Signs (last 24 hours): Temp Pulse Resp BP Pulse Ox 98 F 74 20 183/82 H 99 05/01/17 16:00 05/02/17 10:15 05/01/17 16:00 05/02/17 10:21 05/01/17 16:00 Intake and Output: 05/02/17 05/02/17 06:59 18:59 Intake Total 480 180 Balance 480 180 - Medications Medications: Current Medications Acetaminophen (Tylenol 325mg Tab) 650 mg PO Q4H PRN PRN Reason: Fever >100.5 F Albuterol/Ipratropium (Duoneb 3 Mg/0.5 Mg (3 Ml) Ud) 3 ml IH [id number] PRN PRN Reason: Sore Throat Amlodipine Besylate (Norvasc) 10 mg PO DAILY [facility] Last Admin: 05/02/17 10:21 Dose: 10 mg Aspirin (Aspirin Chewable) 81 mg PO DAILY [facility] Last Admin: 05/02/17 10:15 Dose: 81 mg Atorvastatin Calcium (Lipitor) 20 mg PO DIN [facility] Last Admin: 05/01/17 17:07 Dose: 20 mg Calcium Carbonate (Caltrate) 600 mg PO BID [facility] Last Admin: 05/02/17 10:15 Dose: 600 mg Carvedilol (Coreg) 12.5 mg PO BID [facility] Last Admin: 05/02/17 10:15 Dose: 12.5 mg Docusate Sodium (Colace) 200 mg PO DAILY [facility] Last Admin: 05/02/17 10:14 Dose: 200 mg Insulin Human Regular (Humulin R Low) 0 units SC ACHS [facility] PRN Reason: Protocol Last Admin: 05/02/17 11:19 Dose: 5 units Magnesium Hydroxide (Milk Of Magnesia) 30 ml PO DAILY PRN PRN Reason: Constipation Last Admin: 05/01/17 17:15 Dose: 30 ml Memantine (Namenda) 10 mg PO DAILY [facility] Last Admin: 05/02/17 10:21 Dose: 10 mg Montelukast Sodium (Singulair) 10 mg PO HS [facility] Last Admin: 05/01/17 21:37 Dose: 10 mg Risperidone (Risperdal Tab) 0.5 mg PO DAILY [facility] PRN Reason: Protocol Last Admin: 05/02/17 10:21 Dose: 0.5 mg Senna/Docusate Sodium (Senokot S 50 Mg-8.6 Mg) 2 tab PO HS PRN PRN Reason: Constipation Vitamin B Complex/Vit C/Folic Acid (Nephro-Ester) 1 tab PO 0800 [facility] Last Admin: 05/02/17 08:09 Dose: 1 tab Vitamin D (Vitamin D 400 Intl Units Tab) 400 intlu PO BID [facility] Last Admin: 05/02/17 10:15 Dose: 400 intlu Zolpidem Tartrate (Ambien) 5 mg PO HS [facility] PRN Reason: Protocol Last Admin: 05/01/17 21:37 Dose: 5 mg - Labs Labs: 05/02/17 10:00 05/02/17 10:00 PT 11.0 Seconds (9.9-11.8) 04/30/17 00:30 INR 1.02 (0.93-1.08) 04/30/17 00:30 APTT 24.5 Seconds (23.7-30.8) 04/30/17 00:30 - Constitutional Appears: Non-toxic, No Acute Distress - Head Exam Head Exam: NORMAL INSPECTION - Eye Exam Eye Exam: Normal appearance. absent: Scleral icterus - ENT Exam ENT Exam: Mucous Membranes Moist - Respiratory Exam Respiratory Exam: NORMAL BREATHING PATTERN. absent: Rhonchi, Wheezes, Respiratory Distress Additional comments: bilateral basal rales; - Cardiovascular Exam Cardiovascular Exam: REGULAR RHYTHM, +S1, +S2 - GI/Abdominal Exam GI & Abdominal Exam: Distended, Soft. absent: Tenderness - Extremities Exam Additional comments: mild ankle edema b/l (overall improved); - Neurological Exam Neurological Exam: Alert, Awake - Psychiatric Exam Psychiatric exam: Normal Mood. absent: Agitated - Skin Skin Exam: Warm. 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 NSAIDS, phosphate containing Fleets enema); -avoid drastic reductions in BP -needs outpatient CKD management (EPO, periodic monitoring of phos, PTH and vit D 25-OH levels); As discussed with daughter, patient will need HD at some point within the next year but is likely not a suitable candidate due to her advanced dementia and sometimes aggressive behavior; can confer with PMD and decide about HD when the time arises but would not pursue AVF creation for now; Patient is otherwise stable for d/c from renal perspective; Status: Acute (2) Anemia Assessment & Plan: Due to advanced CKD; once BP controlled, should be started on aranesp 25 mcg every other week; Status: Acute (3) Hypertensive CKD (chronic kidney disease) Assessment & Plan: On amlodpine 10 mg daily; BP improved with coreg 12.5 mg bid (although rebounds once effect wears off); will space out dose to q12h instead of bid; goal is to bring SBP < 150 for now; avoiding diuretics as mentioned above; if diuretics needed, would start with lasix 20 mg PO daily or every other day to avoid volume depletion and worsening renal function; Status: Acute (4) Chronic kidney disease-mineral and bone disorder Assessment & Plan: Phos controlled, no need for binder yet; PTH actually is oversuppressed for this late stage of CKD; should d/c calcium supplementation for now to avoid adynamic bone disease; will not give additional vitamin D either (despite low 25 -OH level); Status: Acute
--- NOTE | 2017-05-02 13:44 | CP.PCM.PN ---
<Clif Bain - Last Filed: 05/02/17 13:39> Subjective - Date & Time of Evaluation Date of Evaluation: 05/02/17 Time of Evaluation: 13:39 - Subjective Subjective: 86 year old female seen bedside for b/l foot wounds. Patient is sleeping in bed resting comfortably. Objective - Vital Signs/Intake and Output Vital Signs (last 24 hours): Temp Pulse Resp BP Pulse Ox 98 F 74 20 183/82 H 99 05/01/17 16:00 05/02/17 10:15 05/01/17 16:00 05/02/17 10:21 05/01/17 16:00 Intake and Output: 05/02/17 05/02/17 06:59 18:59 Intake Total 480 360 Balance 480 360 - Medications Medications: Current Medications Acetaminophen (Tylenol 325mg Tab) 650 mg PO Q4H PRN PRN Reason: Fever >100.5 F Albuterol/Ipratropium (Duoneb 3 Mg/0.5 Mg (3 Ml) Ud) 3 ml IH [id number] PRN PRN Reason: Sore Throat Amlodipine Besylate (Norvasc) 10 mg PO DAILY [facility] Last Admin: 05/02/17 10:21 Dose: 10 mg Aspirin (Aspirin Chewable) 81 mg PO DAILY [facility] Last Admin: 05/02/17 10:15 Dose: 81 mg Atorvastatin Calcium (Lipitor) 20 mg PO DIN [facility] Last Admin: 05/01/17 17:07 Dose: 20 mg Calcium Carbonate (Caltrate) 600 mg PO BID [facility] Last Admin: 05/02/17 10:15 Dose: 600 mg Carvedilol (Coreg) 12.5 mg PO BID [facility] Last Admin: 05/02/17 10:15 Dose: 12.5 mg Docusate Sodium (Colace) 200 mg PO DAILY [facility] Last Admin: 05/02/17 10:14 Dose: 200 mg Insulin Human Regular (Humulin R Low) 0 units SC ACHS [facility] PRN Reason: Protocol Last Admin: 05/02/17 11:19 Dose: 5 units Magnesium Hydroxide (Milk Of Magnesia) 30 ml PO DAILY PRN PRN Reason: Constipation Last Admin: 05/01/17 17:15 Dose: 30 ml Memantine (Namenda) 10 mg PO DAILY [facility] Last Admin: 05/02/17 10:21 Dose: 10 mg Montelukast Sodium (Singulair) 10 mg PO HS [facility] Last Admin: 05/01/17 21:37 Dose: 10 mg Risperidone (Risperdal Tab) 0.5 mg PO DAILY [facility] PRN Reason: Protocol Last Admin: 05/02/17 10:21 Dose: 0.5 mg Senna/Docusate Sodium (Senokot S 50 Mg-8.6 Mg) 2 tab PO HS PRN PRN Reason: Constipation Vitamin B Complex/Vit C/Folic Acid (Nephro-Ester) 1 tab PO 0800 [facility] Last Admin: 05/02/17 08:09 Dose: 1 tab Vitamin D (Vitamin D 400 Intl Units Tab) 400 intlu PO BID [facility] Last Admin: 05/02/17 10:15 Dose: 400 intlu Zolpidem Tartrate (Ambien) 5 mg PO HS [facility] PRN Reason: Protocol Last Admin: 05/01/17 21:37 Dose: 5 mg - Labs Labs: 05/02/17 10:00 05/02/17 10:00 PT 11.0 Seconds (9.9-11.8) 04/30/17 00:30 INR 1.02 (0.93-1.08) 04/30/17 00:30 APTT 24.5 Seconds (23.7-30.8) 04/30/17 00:30 - Constitutional Appears: Well, Non-toxic, No Acute Distress - Extremities Exam Additional comments: LE focused exam: VASC: DP and PT 2/4 bilaterally, temperature warm to cool from proximal knees to distal toes, digital hair noted, CFT <3 seconds x10 digits, edema noted bilaterally Ortho: unable to obtain because patient is sleeping Neuro: unable to obtain because patient is sleeping Derm: Left: closed, healed wound noted to first MTPJ head. No clinical signs of infection noted Right: eschar ulceration noted to the medial aspect of 1st metatarsal head, measuring approximately .5 cm x .5 cm. Wound edges are hyperkeratotic and intact with no opening or dehiscence noted, no erythema or ascending cellulitis , no tunneling, no undermining, no fluctuance or absecess noted. No clinical signs of infection noted. - Neurological Exam Neurological Exam: Alert, Awake, Oriented x3 - Psychiatric Exam Psychiatric exam: Normal Affect, Normal Mood Assessment and Plan - Assessment and Plan (Free Text) Assessment: 86 year old female with PMHx of Alzheimer, DM, HTN, hyperlipidema, anemia, and osteoporosis was seen at bedside for eschar ulceration at medial aspect of 1st MPJ b/l and left lower extremity pain s/p fall. Plan: Patient seen and evaluated at bedside with attending Dr. Joseph Charts, labs and vitals reviewed Foot xray results 05/01: Normal radiograph of feet Optifoam applied to ulceration of right foot, no dressing applied to healed left ulceration No multipodus boots seen at bedside Podiatry will continue to follow while in house <Nathaniel Joseph - Last Filed: 05/03/17 07:27> Objective - Vital Signs/Intake and Output Vital Signs (last 24 hours): Temp Pulse Resp BP Pulse Ox 98.3 F 76 20 185/72 H 97 05/02/17 16:00 05/02/17 21:16 05/02/17 16:00 05/02/17 21:16 05/02/17 16:00 Intake and Output: 05/03/17 05/03/17 06:59 18:59 Intake Total 600 Balance 600 - Medications Medications: Current Medications Acetaminophen (Tylenol 325mg Tab) 650 mg PO Q4H PRN PRN Reason: Fever >100.5 F Albuterol/Ipratropium (Duoneb 3 Mg/0.5 Mg (3 Ml) Ud) 3 ml IH [id number] PRN PRN Reason: Sore Throat Amlodipine Besylate (Norvasc) 10 mg PO DAILY [facility] Last Admin: 05/02/17 10:21 Dose: 10 mg Aspirin (Aspirin Chewable) 81 mg PO DAILY [facility] Last Admin: 05/02/17 10:15 Dose: 81 mg Atorvastatin Calcium (Lipitor) 20 mg PO DIN [facility] Last Admin: 05/02/17 17:30 Dose: 20 mg Carvedilol (Coreg) 12.5 mg PO Q12 [facility] Last Admin: 05/02/17 21:16 Dose: 12.5 mg Docusate Sodium (Colace) 200 mg PO DAILY [facility] Last Admin: 05/02/17 10:14 Dose: 200 mg Insulin Detemir (Levemir) 10 unit SC Q12 [facility] Last Admin: 05/02/17 21:57 Dose: 10 unit Insulin Human Regular (Humulin R Low) 0 units SC ACHS [facility] PRN Reason: Protocol Last Admin: 05/03/17 01:38 Dose: Not Given Magnesium Hydroxide (Milk Of Magnesia) 30 ml PO DAILY PRN PRN Reason: Constipation Last Admin: 05/01/17 17:15 Dose: 30 ml Memantine (Namenda) 10 mg PO DAILY [facility] Last Admin: 05/02/17 10:21 Dose: 10 mg Montelukast Sodium (Singulair) 10 mg PO HS [facility] Last Admin: 05/02/17 21:16 Dose: 10 mg Risperidone (Risperdal Tab) 0.5 mg PO DAILY [facility] PRN Reason: Protocol Last Admin: 05/02/17 10:21 Dose: 0.5 mg Senna/Docusate Sodium (Senokot S 50 Mg-8.6 Mg) 2 tab PO HS PRN PRN Reason: Constipation Vitamin B Complex/Vit C/Folic Acid (Nephro-Ester) 1 tab PO 0800 [facility] Last Admin: 05/02/17 08:09 Dose: 1 tab Vitamin D (Vitamin D 400 Intl Units Tab) 400 intlu PO BID [facility] Last Admin: 05/02/17 17:29 Dose: 400 intlu Zolpidem Tartrate (Ambien) 5 mg PO HS [facility] PRN Reason: Protocol Last Admin: 05/02/17 21:16 Dose: 5 mg - Labs Labs: 05/02/17 10:00 05/02/17 10:00 PT 11.0 Seconds (9.9-11.8) 04/30/17 00:30 INR 1.02 (0.93-1.08) 04/30/17 00:30 APTT 24.5 Seconds (23.7-30.8) 04/30/17 00:30 Attending/Attestation - Attestation I have personally seen and examined this patient.: Yes I have fully participated in the care of the patient.: Yes I have reviewed all pertinent clinical information, including history, physical exam and plan: Yes
[2017-05-02] MEDS: Insulin Detemir 100 units/ml Vial (Levemir) SC SCH (21:57)
[2017-05-03] MEDS: Insulin Reg-LOW-Coverage SC SCH ×5 (01:38→21:45)
--- NOTE | 2017-05-03 03:17 | PN ---
PULMONARY PROGRESS NOTE DATE: 05/02/2017 REFERRING PHYSICIAN: Dr. Son. SUBJECTIVE: She is lying in the bed, head at 45 degrees. Nursing staff feeding her dinner. Awake, alert, but confused. Daughter is at the bedside. Occasional cough. No nausea, no vomiting, no diarrhea. No leg pain or leg swelling. PHYSICAL EXAMINATION GENERAL: In no acute distress. VITAL SIGNS: Temperature 98, heart rate 74, respiratory rate is 20, blood pressure is 185/72 and pulse ox 97% on room air. HEENT: Moist mucous membrane. Crowded airway. Mallampati score is IV. NECK: Supple. No JVD. LUNGS: Fair airflow with few rhonchi. HEART: S1 and S2. ABDOMEN: Soft and nontender. No organomegaly EXTREMITIES: No edema. NEUROLOGIC: Awake and alert. Follow simple commands, but confused. MEDICATIONS: She is on Ambien 5 mg at bedtime, aspirin 81 mg daily, Colace 200 mg daily, Coreg 12.5 mg twice a day, DuoNeb q. 6 hours p.r.n., insulin coverage, Levemir 10 units subq q. 12 hours, Lipitor 20 mg daily, milk of magnesia 30 mL p.r.n., Namenda 10 mg daily, multivitamins daily, Norvasc 10 mg daily, Risperdal 0.5 mg daily, Senokot p.r.n., Singulair 10 mg at bedtime, Tylenol p.r.n. and vitamin D 400 international units daily. LABORATORY DATA: Shows hemoglobin 9.3, hematocrit 27.2, WBC 9.6 and platelet is 189. INR 1.02 and PTT is 25. Sodium 140, potassium 4.6, chloride 109, bicarbonate 23, BUN 61, creatinine 3.8 and glucose is 337, calcium 9.2, phosphorus 4.0, total bili 0.3, AST 29, ALT 37, alkaline phosphatase is 63 and albumin is 3.3. Microbiology; foot culture has coag-negative Staph. IMPRESSION AND PLAN: Renal failure, admitted with hyperglycemia, acute bronchitis, Alzheimer type dementia, hypertension, hypothyroid. Pulmonary point of view, she is doing okay. Keep head elevated at 45 degrees. Bronchodilator, aspiration precaution, gastric prophylaxis, fall precaution. Thank you and we will follow with you. Austin Hurst MD [facility] # [id number]
[2017-05-03] MEDS: Multivitamin Vitamin B Complex (Nephro-Vite) Tab PO SCH (07:51)
--- NOTE | 2017-05-03 08:45 | PN ---
DATE: 05/02/2017 PROGRESS NOTE SUBJECTIVE: The patient was seen and examined on the bedside, sitting on the chair. Daughter is sitting on the bedside also. Looking much better. No nausea, vomiting or diarrhea. No hematuria or hematochezia. No headache or dizziness. No fever, no chills. No shortness of breath. Eating better. Ambulates to commode with assistance. The patient is not a good historian, but I got the review of system from the daughter. PHYSICAL EXAMINATION: VITAL SIGNS: Temperature 98, pulse 74, respiratory 20, blood pressure 183/82, and pulse oximetry 99%. HEENT: Head is normocephalic, atraumatic. Eyes PERRLA. Extraocular muscles intact. Conjunctivae clear. Nose is patent. Mucous membranes moist. NECK: Supple. No carotid bruits, JVD or thyromegaly. CHEST: Bilaterally symmetrical. HEART: S1 and S2 positive. LUNGS: Clear to auscultation. ABDOMEN: Soft. Bowel sounds positive. No organomegaly. EXTREMITIES: No edema. No cyanosis. NEUROLOGIC: Patient is awake, alert. Moving all 4 extremities. No focal deficit. MEDICATIONS: Tylenol, DuoNeb, Norvasc, aspirin, Lipitor, Coreg, Colace, insulin, milk of magnesia, Namenda, Singulair, Risperdal, Senokot, folic acid, and Ambien. LABORATORY DATA: White blood cells 9.6, hemoglobin 9.3, hematocrit 27.2 and platelets 189. Sodium 140, potassium 4.6, BUN 51, creatinine 3.8 and glucose 337. ASSESSMENT AND PLAN: Ms. Shelbi Mcdaniels is an 86-year- old female, with anemia, renal insufficiency, hyperglycemia, sugar is not very well controlled. We will put the patient on the insulin. Chronic kidney disease stage 5, GFR less than 50 mL/min. According to nephrology relatively stable renal function lately, mildly improved with IVF. Proteinuric kidney disease in the setting of diabetes mellitus, hepatitis C positive, avoid nephrotoxic agents, NSAIDs, phosphate containing fleet enemas, avoid drastic reduction in the blood pressure, need outpatient chronic kidney disease management. Dr. Holcomb had length of time discussion done with the patient's daughter and may be patient need hemodialysis in the future, may be next year. Anemia may be due to kidney disease. Foot ulcer, Coin Machine Supervisor is on the case. Discussion done with the patient's daughter and nursing staff. The patient has seen Clif Bain. The patient has advanced dementia, osteoporosis, has eschar ulceration at the medial aspect of the first metacarpophalangeal joint bilaterally and left lower extremity pain status post fall. Appreciate Dr. Joseph's input. Foot x-ray is normal. Feet care done. Out of bed, Physical Therapy, gastrointestinal and deep venous thrombosis prophylaxis. We will follow. Jaqui Son MD
[2017-05-03 09:26] LABS: KAPPA/LAMBDA FREE RATIO 1.39 (0.26-1.65)
[2017-05-03 09:42] LABS: CREATININE, RANDOM URINE 57 mg/dL (20-320)
[2017-05-03] MEDS: Cholecalciferol 400 Intl Units Tab PO SCH ×2 (10:20→18:11)
[2017-05-03] MEDS: Insulin Detemir 100 units/ml Vial (Levemir) SC SCH ×2 (10:22→21:42)
--- NOTE | 2017-05-03 12:48 | CP.PCM.PN ---
<Clif Bain - Last Filed: 05/03/17 12:44> Subjective - Date & Time of Evaluation Date of Evaluation: 05/03/17 Time of Evaluation: 10:45 - Subjective Subjective: 86 year old female seen bedside for b/l foot wounds and elongated nails. Patient is sleeping in bed resting comfortably. Objective - Vital Signs/Intake and Output Vital Signs (last 24 hours): Temp Pulse Resp BP Pulse Ox 97.9 F 72 22 147/79 96 05/03/17 07:00 05/03/17 12:29 05/03/17 07:00 05/03/17 12:29 05/03/17 07:00 Intake and Output: 05/03/17 05/03/17 06:59 18:59 Intake Total 600 120 Balance 600 120 - Medications Medications: Current Medications Acetaminophen (Tylenol 325mg Tab) 650 mg PO Q4H PRN PRN Reason: Fever >100.5 F Albuterol/Ipratropium (Duoneb 3 Mg/0.5 Mg (3 Ml) Ud) 3 ml IH [id number] PRN PRN Reason: Sore Throat Amlodipine Besylate (Norvasc) 10 mg PO DAILY [facility] Last Admin: 05/03/17 10:21 Dose: 10 mg Aspirin (Aspirin Chewable) 81 mg PO DAILY [facility] Last Admin: 05/03/17 10:20 Dose: 81 mg Atorvastatin Calcium (Lipitor) 20 mg PO DIN [facility] Last Admin: 05/02/17 17:30 Dose: 20 mg Carvedilol (Coreg) 12.5 mg PO Q12 [facility] Last Admin: 05/03/17 10:21 Dose: 12.5 mg Docusate Sodium (Colace) 200 mg PO DAILY [facility] Last Admin: 05/03/17 10:20 Dose: 200 mg Hydralazine HCl (Apresoline) 25 mg PO BID [facility] Last Admin: 05/03/17 12:29 Dose: 25 mg Insulin Detemir (Levemir) 10 unit SC Q12 [facility] Last Admin: 05/03/17 10:22 Dose: 10 unit Insulin Human Regular (Humulin R Low) 0 units SC ACHS [facility] PRN Reason: Protocol Last Admin: 05/03/17 12:28 Dose: 2 units Magnesium Hydroxide (Milk Of Magnesia) 30 ml PO DAILY PRN PRN Reason: Constipation Last Admin: 05/01/17 17:15 Dose: 30 ml Memantine (Namenda) 10 mg PO DAILY [facility] Last Admin: 05/03/17 10:20 Dose: 10 mg Montelukast Sodium (Singulair) 10 mg PO HS [facility] Last Admin: 05/02/17 21:16 Dose: 10 mg Risperidone (Risperdal Tab) 0.5 mg PO DAILY [facility] PRN Reason: Protocol Last Admin: 05/03/17 10:20 Dose: 0.5 mg Senna/Docusate Sodium (Senokot S 50 Mg-8.6 Mg) 2 tab PO HS PRN PRN Reason: Constipation Vitamin B Complex/Vit C/Folic Acid (Nephro-Ester) 1 tab PO 0800 [facility] Last Admin: 05/03/17 07:51 Dose: 1 tab Vitamin D (Vitamin D 400 Intl Units Tab) 400 intlu PO BID [facility] Last Admin: 05/03/17 10:20 Dose: 400 intlu - Labs Labs: 05/02/17 10:00 05/02/17 10:00 PT 11.0 Seconds (9.9-11.8) 04/30/17 00:30 INR 1.02 (0.93-1.08) 04/30/17 00:30 APTT 24.5 Seconds (23.7-30.8) 04/30/17 00:30 - Constitutional Appears: Well, Non-toxic, No Acute Distress - Extremities Exam Additional comments: LE focused exam: VASC: DP and PT 2/4 bilaterally, temperature warm to cool from proximal to distal, digital hair noted, CFT <3 seconds x10 digits, edema noted bilaterally Ortho: unable to obtain because patient is sleeping Neuro: unable to obtain because patient is sleeping Derm: Left: closed, healed wound noted to first MTPJ head. No clinical signs of infection noted Right: eschar ulceration noted to the medial aspect of 1st metatarsal head, measuring approximately .5 cm x .5 cm. Wound edges are hyperkeratotic and intact with no opening or dehiscence noted, no erythema or ascending cellulitis , no tunneling, no undermining, no fluctuance or absecess noted. No clinical signs of infection noted. - Neurological Exam Neurological Exam: Alert, Awake, Oriented x3 - Psychiatric Exam Psychiatric exam: Normal Affect, Normal Mood Assessment and Plan - Assessment and Plan (Free Text) Assessment: 86 year old female with PMHx of Alzheimer, DM, HTN, hyperlipidema, anemia, and osteoporosis was seen at bedside for eschar ulceration at medial aspect of right 1st MPJ Plan: Patient seen and evaluated at bedside Charts, labs and vitals reviewed Plan discussed with attending Dr. Joseph Foot xray results 05/01: Normal radiograph of feet Optifoam applied to ulceration of right foot, no dressing applied to healed left ulceration New order for multipodus boots placed Podiatry will continue to follow while in house <Nathaniel Joseph - Last Filed: 05/03/17 17:49> Objective - Vital Signs/Intake and Output Vital Signs (last 24 hours): Temp Pulse Resp BP Pulse Ox 97 F L 76 22 165/69 H 99 05/03/17 16:14 05/03/17 16:14 05/03/17 16:14 05/03/17 16:14 05/03/17 16:14 Intake and Output: 05/03/17 05/03/17 06:59 18:59 Intake Total 600 420 Balance 600 420 - Medications Medications: Current Medications Acetaminophen (Tylenol 325mg Tab) 650 mg PO Q4H PRN PRN Reason: Fever >100.5 F Albuterol/Ipratropium (Duoneb 3 Mg/0.5 Mg (3 Ml) Ud) 3 ml IH [id number] PRN PRN Reason: Sore Throat Amlodipine Besylate (Norvasc) 10 mg PO DAILY [facility] Last Admin: 05/03/17 10:21 Dose: 10 mg Aspirin (Aspirin Chewable) 81 mg PO DAILY [facility] Last Admin: 05/03/17 10:20 Dose: 81 mg Atorvastatin Calcium (Lipitor) 20 mg PO DIN [facility] Last Admin: 05/02/17 17:30 Dose: 20 mg Carvedilol (Coreg) 12.5 mg PO Q12 [facility] Last Admin: 05/03/17 10:21 Dose: 12.5 mg Docusate Sodium (Colace) 200 mg PO DAILY [facility] Last Admin: 05/03/17 10:20 Dose: 200 mg Hydralazine HCl (Apresoline) 25 mg PO BID [facility] Last Admin: 05/03/17 12:29 Dose: 25 mg Insulin Detemir (Levemir) 10 unit SC Q12 [facility] Last Admin: 05/03/17 10:22 Dose: 10 unit Insulin Human Regular (Humulin R Low) 0 units SC ACHS [facility] PRN Reason: Protocol Last Admin: 05/03/17 12:28 Dose: 2 units Magnesium Hydroxide (Milk Of Magnesia) 30 ml PO DAILY PRN PRN Reason: Constipation Last Admin: 05/01/17 17:15 Dose: 30 ml Memantine (Namenda) 10 mg PO DAILY [facility] Last Admin: 05/03/17 10:20 Dose: 10 mg Montelukast Sodium (Singulair) 10 mg PO HS [facility] Last Admin: 05/02/17 21:16 Dose: 10 mg Risperidone (Risperdal Tab) 0.5 mg PO DAILY [facility] PRN Reason: Protocol Last Admin: 05/03/17 10:20 Dose: 0.5 mg Senna/Docusate Sodium (Senokot S 50 Mg-8.6 Mg) 2 tab PO HS PRN PRN Reason: Constipation Vitamin B Complex/Vit C/Folic Acid (Nephro-Ester) 1 tab PO 0800 [facility] Last Admin: 05/03/17 07:51 Dose: 1 tab Vitamin D (Vitamin D 400 Intl Units Tab) 400 intlu PO BID [facility] Last Admin: 05/03/17 10:20 Dose: 400 intlu - Labs Labs: 05/02/17 10:00 05/02/17 10:00 PT 11.0 Seconds (9.9-11.8) 04/30/17 00:30 INR 1.02 (0.93-1.08) 04/30/17 00:30 APTT 24.5 Seconds (23.7-30.8) 04/30/17 00:30 Attending/Attestation - Attestation I have personally seen and examined this patient.: Yes I have fully participated in the care of the patient.: Yes I have reviewed all pertinent clinical information, including history, physical exam and plan: Yes
--- NOTE | 2017-05-03 18:04 | CP.PCM.PN ---
Subjective - Date & Time of Evaluation Date of Evaluation: 05/03/17 Time of Evaluation: 12:00 - Subjective Subjective: Patient being fed by nursing staff, tolerating diet; no shortness of breath reported; Objective - Vital Signs/Intake and Output Vital Signs (last 24 hours): Temp Pulse Resp BP Pulse Ox 97 F L 76 22 165/69 H 99 05/03/17 16:14 05/03/17 16:14 05/03/17 16:14 05/03/17 16:14 05/03/17 16:14 Intake and Output: 05/03/17 05/03/17 06:59 18:59 Intake Total 600 420 Balance 600 420 - Medications Medications: Current Medications Acetaminophen (Tylenol 325mg Tab) 650 mg PO Q4H PRN PRN Reason: Fever >100.5 F Albuterol/Ipratropium (Duoneb 3 Mg/0.5 Mg (3 Ml) Ud) 3 ml IH [id number] PRN PRN Reason: Sore Throat Amlodipine Besylate (Norvasc) 10 mg PO DAILY [facility] Last Admin: 05/03/17 10:21 Dose: 10 mg Aspirin (Aspirin Chewable) 81 mg PO DAILY [facility] Last Admin: 05/03/17 10:20 Dose: 81 mg Atorvastatin Calcium (Lipitor) 20 mg PO DIN [facility] Last Admin: 05/02/17 17:30 Dose: 20 mg Carvedilol (Coreg) 12.5 mg PO Q12 [facility] Last Admin: 05/03/17 10:21 Dose: 12.5 mg Docusate Sodium (Colace) 200 mg PO DAILY [facility] Last Admin: 05/03/17 10:20 Dose: 200 mg Furosemide (Lasix) 20 mg PO DAILY [facility] Hydralazine HCl (Apresoline) 25 mg PO BID [facility] Last Admin: 05/03/17 12:29 Dose: 25 mg Insulin Detemir (Levemir) 10 unit SC Q12 [facility] Last Admin: 05/03/17 10:22 Dose: 10 unit Insulin Human Regular (Humulin R Low) 0 units SC ACHS [facility] PRN Reason: Protocol Last Admin: 05/03/17 12:28 Dose: 2 units Magnesium Hydroxide (Milk Of Magnesia) 30 ml PO DAILY PRN PRN Reason: Constipation Last Admin: 05/01/17 17:15 Dose: 30 ml Memantine (Namenda) 10 mg PO DAILY [facility] Last Admin: 05/03/17 10:20 Dose: 10 mg Montelukast Sodium (Singulair) 10 mg PO HS [facility] Last Admin: 05/02/17 21:16 Dose: 10 mg Risperidone (Risperdal Tab) 0.5 mg PO DAILY [facility] PRN Reason: Protocol Last Admin: 05/03/17 10:20 Dose: 0.5 mg Senna/Docusate Sodium (Senokot S 50 Mg-8.6 Mg) 2 tab PO HS PRN PRN Reason: Constipation Vitamin B Complex/Vit C/Folic Acid (Nephro-Ester) 1 tab PO 0800 [facility] Last Admin: 05/03/17 07:51 Dose: 1 tab Vitamin D (Vitamin D 400 Intl Units Tab) 400 intlu PO BID [facility] Last Admin: 05/03/17 10:20 Dose: 400 intlu - Labs Labs: 05/02/17 10:00 05/02/17 10:00 PT 11.0 Seconds (9.9-11.8) 04/30/17 00:30 INR 1.02 (0.93-1.08) 04/30/17 00:30 APTT 24.5 Seconds (23.7-30.8) 04/30/17 00:30 - Constitutional Appears: Non-toxic, No Acute Distress - Head Exam Head Exam: NORMAL INSPECTION - Eye Exam Eye Exam: Normal appearance. absent: Scleral icterus - ENT Exam ENT Exam: Mucous Membranes Moist - Respiratory Exam Respiratory Exam: Clear to Ausculation Bilateral, NORMAL BREATHING PATTERN. absent: Rales, Rhonchi, Wheezes, Respiratory Distress - Cardiovascular Exam Cardiovascular Exam: RRR, +S1, +S2 - GI/Abdominal Exam GI & Abdominal Exam: Soft. absent: Distended, Tenderness - Extremities Exam Additional comments: mild ankle edema b/l; - Neurological Exam Neurological Exam: Alert, Awake - Psychiatric Exam Psychiatric exam: Normal Mood - Skin Skin Exam: Warm. 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; stable electrolyte and volume status; will focus on BP control and avoiding overdiuresis as well as any nephrotoxic agents; 6 month to 1 year prognosis is poor with patient likely becoming ESRD; Status: Chronic (2) Anemia Assessment & Plan: Hgb stable; BP still not controlled to start EPO; Status: Acute (3) Hypertensive CKD (chronic kidney disease) Assessment & Plan: Patient had shown good response to coreg but again with rebound htn despite spacing out dose to q12h; hydralazine 25 mg bid added on top of amlodipine 10; will start lasix 20 mg daily but should monitor labs in a few days as renal function may worsen; Status: Acute (4) Chronic kidney disease-mineral and bone disorder Assessment & Plan: Holding Ca supplementation in order to avoid suppressing PTH further ( guidelines suggest 150-300 in CKD V); Status: Acute
[2017-05-03 19:15] LABS: BETA 1 GLOBULIN 0.4 g/dL (0.4-0.6); BETA 2 GLOBULIN 0.5 g/dL (0.2-0.5); GAMMA GLOBULIN 1.1 g/dL (0.8-1.7)
--- NOTE | 2017-05-03 20:48 | PN ---
DATE: 05/03/2017 PULMONARY PROGRESS NOTE REFERRING PHYSICIAN: Dr. Son. SUBJECTIVE: She is lying in the bed, head at 47 degrees, been up in a chair under one-to-one supervision, has mild cough especially after eating. No nausea, no vomiting, no diarrhea. No leg pain or leg swelling. OBJECTIVE GENERAL: In no acute distress. VITAL SIGNS: Temperature 98, heart rate 74, respiratory rate is 20, blood pressure is 147/79 and pulse ox 96% on room air. HEENT: Moist mucous membrane. Crowded airway. NECK: Supple. No JVD. LUNGS: Fair airflow with few rhonchi. HEART: S1 and S2. ABDOMEN: Soft and nontender. No organomegaly EXTREMITIES: No edema. NEUROLOGIC: Awake and alert. Follow simple commands, but confused. MEDICATIONS: She is on hydralazine 25 mg twice a day, also on aspirin 81 mg daily, Colace 200 mg daily, Coreg 12.5 mg q.12 hour, DuoNeb q.6 hours p.r.n., insulin coverage, Levemir 10 units subcu q.12 hours, Lipitor 20 mg daily, milk of magnesia 30 mL p.o. daily p.r.n., Namenda 10 mg daily, vitamin B, folic acid C 1 tab daily, Norvasc 10 mg daily, Risperdal 0.5 mg daily, Senokot p.r.n. basis, Singulair 10 mg daily, Tylenol p.r.n. and vitamin D 400 international units twice a day. LABORATORY DATA: Reviewed. Sugar this morning is 203. IMPRESSION AND PLAN: Renal failure, admitted with hyperglycemia, acute bronchitis, Alzheimer type dementia, hypertension, hypothyroid, oropharyngeal dysphagia, modify diet. I spoke to sitter, MiraLax today. Renal function is much improved. Aspiration precaution, gastric prophylaxis. Thank you and we will follow with you. Austin Hurst MD
--- NOTE | 2017-05-04 01:33 | PN ---
DATE: SUBJECTIVE: The patient is an 86-year-old female. The patient was seen and examined on the bedside, looking comfortable, under supervision of 1:1 last night and was restrained because last night she had episode of anxiety. She took Ambien and I discontinued Ambien and put consult with Dr. Ashley Harrell, for anxiety. No nausea, vomiting, or diarrhea. No swelling of the legs. As per staff the patient is coughing especially after eating. PHYSICAL EXAMINATION: VITAL SIGNS: Temperature is 98, heart rate 74, respirations 20, blood pressure 120/8,0 and pulse oximetry 93% on room air. HEENT: Head, normocephalic and atraumatic. Eyes, PERRLA. Extraocular muscles intact. Conjunctivae clear. Nose patent. Mucous membranes moist. NECK: Supple. No carotid bruits, JVD or thyromegaly. LUNGS: Fair airflow with few rhonchi. HEART: S1 and S2 positive. ABDOMEN: Soft. Nontender. No organomegaly. EXTREMITIES: No edema. No cyanosis. NEUROLOGICAL: The patient is awake and alert. Follows simples commands. LABORATORY DATA: We do not have recent labs today, but I reviewed old labs MEDICATIONS: Hydralazine, Colace, Coreg, DuoNeb, insulin, Levemir, Lipitor, milk of magnesia, Namenda, vitamin B, folic acid, Norvasc, Risperdal, Senokot, Singulair, Tylenol, vitamin D. ASSESSMENT AND PLAN: Ms. Vianey Larose is an 86-year-old lady with multiple medical problems, had advanced dementia, renal failure shellfish manager is on the case, hyperglycemia, acute bronchitis, hypertension, hypothyroidism, oropharyngeal dysphagia, modified diet, renal function is much improved, aspiration precaution, gastric prophylaxis. The patient is getting anxiety at night and restless, so I put the patient on observation and 1:1. We will follow up. Jaqui Son MD [facility]ENTER[facility]anny
[2017-05-04] MEDS: Multivitamin Vitamin B Complex (Nephro-Vite) Tab PO SCH (08:08)
--- NOTE | 2017-05-04 10:16 | CP.PCM.PN ---
<Clif Bain - Last Filed: 05/04/17 10:09> Subjective - Date & Time of Evaluation Date of Evaluation: 05/04/17 Time of Evaluation: 10:09 - Subjective Subjective: 86 year old female seen bedside for right foot ulceration. Patient is sleeping in bed resting comfortably. No overnight events per nursing. Objective - Vital Signs/Intake and Output Vital Signs (last 24 hours): Temp Pulse Resp BP Pulse Ox 97 F L 865 H 22 187/96 H 99 05/03/17 16:14 05/03/17 21:46 05/03/17 16:14 05/03/17 21:46 05/03/17 16:14 Intake and Output: 05/04/17 05/04/17 06:59 18:59 Intake Total 780 Output Total 2 Balance 778 - Medications Medications: Current Medications Acetaminophen (Tylenol 325mg Tab) 650 mg PO Q4H PRN PRN Reason: Fever >100.5 F Albuterol/Ipratropium (Duoneb 3 Mg/0.5 Mg (3 Ml) Ud) 3 ml IH [id number] PRN PRN Reason: Sore Throat Amlodipine Besylate (Norvasc) 10 mg PO DAILY [facility] Last Admin: 05/03/17 10:21 Dose: 10 mg Aspirin (Aspirin Chewable) 81 mg PO DAILY [facility] Last Admin: 05/03/17 10:20 Dose: 81 mg Atorvastatin Calcium (Lipitor) 20 mg PO DIN [facility] Last Admin: 05/03/17 18:12 Dose: 20 mg Carvedilol (Coreg) 12.5 mg PO Q12 [facility] Last Admin: 05/03/17 21:46 Dose: 12.5 mg Docusate Sodium (Colace) 200 mg PO DAILY [facility] Last Admin: 05/03/17 10:20 Dose: 200 mg Furosemide (Lasix) 20 mg PO DAILY [facility] Last Admin: 05/03/17 18:14 Dose: 20 mg Hydralazine HCl (Apresoline) 25 mg PO BID [facility] Last Admin: 05/03/17 18:12 Dose: 25 mg Insulin Detemir (Levemir) 10 unit SC Q12 [facility] Last Admin: 05/03/17 21:42 Dose: 10 unit Insulin Human Regular (Humulin R Low) 0 units SC ACHS [facility] PRN Reason: Protocol Last Admin: 05/03/17 21:45 Dose: 2 units Magnesium Hydroxide (Milk Of Magnesia) 30 ml PO DAILY PRN PRN Reason: Constipation Last Admin: 05/01/17 17:15 Dose: 30 ml Memantine (Namenda) 10 mg PO DAILY [facility] Last Admin: 05/03/17 10:20 Dose: 10 mg Montelukast Sodium (Singulair) 10 mg PO HS [facility] Last Admin: 05/03/17 21:46 Dose: 10 mg Quetiapine Fumarate (Seroquel) 12.5 mg PO HS PRN; Protocol PRN Reason: Agitation Senna/Docusate Sodium (Senokot S 50 Mg-8.6 Mg) 2 tab PO HS PRN PRN Reason: Constipation Vitamin B Complex/Vit C/Folic Acid (Nephro-Ester) 1 tab PO 0800 [facility] Last Admin: 05/03/17 07:51 Dose: 1 tab Vitamin D (Vitamin D 400 Intl Units Tab) 400 intlu PO BID [facility] Last Admin: 05/03/17 18:11 Dose: 400 intlu - Labs Labs: 05/02/17 10:00 05/02/17 10:00 PT 11.0 Seconds (9.9-11.8) 04/30/17 00:30 INR 1.02 (0.93-1.08) 04/30/17 00:30 APTT 24.5 Seconds (23.7-30.8) 04/30/17 00:30 - Constitutional Appears: Well, Non-toxic, No Acute Distress - Extremities Exam Additional comments: LE focused exam: VASC: DP and PT 2/4 bilaterally, temperature warm to cool from proximal to distal, digital hair noted, CFT <3 seconds x10 digits, edema noted bilaterally Ortho: unable to obtain because patient is sleeping Neuro: unable to obtain because patient is sleeping Derm: Left: closed, healed wound noted to first MTPJ head. No clinical signs of infection noted Right: ulceration noted to the medial aspect of 1st metatarsal head, measuring approximately 1 cm x 1 cm. Wound edges are hyperkeratotic and intact with no opening or dehiscence noted, no erythema or ascending cellulitis, no tunneling, no undermining, no fluctuance or absecess noted. No clinical signs of infection noted. - Neurological Exam Neurological Exam: Alert, Awake, Oriented x3 - Psychiatric Exam Psychiatric exam: Normal Affect, Normal Mood Assessment and Plan - Assessment and Plan (Free Text) Assessment: 86 year old female with PMHx of Alzheimer, DM, HTN, hyperlipidema, anemia, and osteoporosis was seen at bedside for ulceration at medial aspect of right 1st MPJ Plan: Patient seen and evaluated at bedside Charts, labs and vitals reviewed Plan discussed with attending Dr. Joseph Foot xray results 05/01: Normal radiograph of feet Optifoam applied to ulceration of right foot, no dressing applied to healed left ulceration Podiatry will continue to follow while in house <Nathaniel Joseph - Last Filed: 05/04/17 10:48> Objective - Vital Signs/Intake and Output Vital Signs (last 24 hours): Temp Pulse Resp BP Pulse Ox 97 F L 865 H 22 187/96 H 99 05/03/17 16:14 05/03/17 21:46 05/03/17 16:14 05/03/17 21:46 05/03/17 16:14 Intake and Output: 05/04/17 05/04/17 06:59 18:59 Intake Total 780 Output Total 2 Balance 778 - Medications Medications: Current Medications Acetaminophen (Tylenol 325mg Tab) 650 mg PO Q4H PRN PRN Reason: Fever >100.5 F Albuterol/Ipratropium (Duoneb 3 Mg/0.5 Mg (3 Ml) Ud) 3 ml IH [id number] PRN PRN Reason: Sore Throat Amlodipine Besylate (Norvasc) 10 mg PO DAILY [facility] Last Admin: 05/03/17 10:21 Dose: 10 mg Aspirin (Aspirin Chewable) 81 mg PO DAILY [facility] Last Admin: 05/03/17 10:20 Dose: 81 mg Atorvastatin Calcium (Lipitor) 20 mg PO DIN [facility] Last Admin: 05/03/17 18:12 Dose: 20 mg Carvedilol (Coreg) 12.5 mg PO Q12 [facility] Last Admin: 05/03/17 21:46 Dose: 12.5 mg Docusate Sodium (Colace) 200 mg PO DAILY [facility] Last Admin: 05/03/17 10:20 Dose: 200 mg Furosemide (Lasix) 20 mg PO DAILY [facility] Last Admin: 05/03/17 18:14 Dose: 20 mg Hydralazine HCl (Apresoline) 25 mg PO BID [facility] Last Admin: 05/03/17 18:12 Dose: 25 mg Insulin Detemir (Levemir) 10 unit SC Q12 [facility] Last Admin: 05/03/17 21:42 Dose: 10 unit Insulin Human Regular (Humulin R Low) 0 units SC ACHS [facility] PRN Reason: Protocol Last Admin: 05/03/17 21:45 Dose: 2 units Magnesium Hydroxide (Milk Of Magnesia) 30 ml PO DAILY PRN PRN Reason: Constipation Last Admin: 05/01/17 17:15 Dose: 30 ml Memantine (Namenda) 10 mg PO DAILY [facility] Last Admin: 05/03/17 10:20 Dose: 10 mg Montelukast Sodium (Singulair) 10 mg PO HS [facility] Last Admin: 05/03/17 21:46 Dose: 10 mg Quetiapine Fumarate (Seroquel) 12.5 mg PO HS PRN; Protocol PRN Reason: Agitation Senna/Docusate Sodium (Senokot S 50 Mg-8.6 Mg) 2 tab PO HS PRN PRN Reason: Constipation Vitamin B Complex/Vit C/Folic Acid (Nephro-Ester) 1 tab PO 0800 [facility] Last Admin: 05/03/17 07:51 Dose: 1 tab Vitamin D (Vitamin D 400 Intl Units Tab) 400 intlu PO BID [facility] Last Admin: 05/03/17 18:11 Dose: 400 intlu - Labs Labs: 05/02/17 10:00 05/02/17 10:00 PT 11.0 Seconds (9.9-11.8) 04/30/17 00:30 INR 1.02 (0.93-1.08) 04/30/17 00:30 APTT 24.5 Seconds (23.7-30.8) 04/30/17 00:30 Attending/Attestation - Attestation I have personally seen and examined this patient.: Yes I have fully participated in the care of the patient.: Yes I have reviewed all pertinent clinical information, including history, physical exam and plan: Yes
--- NOTE | 2017-05-04 10:57 | CP.PCM.PN ---
Subjective - Date & Time of Evaluation Date of Evaluation: 05/04/17 Time of Evaluation: 10:53 - Subjective Subjective: 86 yo F w/ htn, dm, CKD V, admitted with lethargy, uncontrolled htn; Patient reportedly agitated overnight; this morning reporting some foot pain but only when pressed if she had any complaints; Objective - Vital Signs/Intake and Output Vital Signs (last 24 hours): Temp Pulse Resp BP Pulse Ox 97 F L 865 H 22 187/96 H 99 05/03/17 16:14 05/03/17 21:46 05/03/17 16:14 05/03/17 21:46 05/03/17 16:14 Intake and Output: 05/04/17 05/04/17 06:59 18:59 Intake Total 780 Output Total 2 Balance 778 - Medications Medications: Current Medications Acetaminophen (Tylenol 325mg Tab) 650 mg PO Q4H PRN PRN Reason: Fever >100.5 F Albuterol/Ipratropium (Duoneb 3 Mg/0.5 Mg (3 Ml) Ud) 3 ml IH [id number] PRN PRN Reason: Sore Throat Amlodipine Besylate (Norvasc) 10 mg PO DAILY [facility] Last Admin: 05/03/17 10:21 Dose: 10 mg Aspirin (Aspirin Chewable) 81 mg PO DAILY [facility] Last Admin: 05/03/17 10:20 Dose: 81 mg Atorvastatin Calcium (Lipitor) 20 mg PO DIN [facility] Last Admin: 05/03/17 18:12 Dose: 20 mg Carvedilol (Coreg) 12.5 mg PO Q12 [facility] Last Admin: 05/03/17 21:46 Dose: 12.5 mg Docusate Sodium (Colace) 200 mg PO DAILY [facility] Last Admin: 05/03/17 10:20 Dose: 200 mg Furosemide (Lasix) 20 mg PO DAILY [facility] Last Admin: 05/03/17 18:14 Dose: 20 mg Hydralazine HCl (Apresoline) 25 mg PO BID [facility] Last Admin: 05/03/17 18:12 Dose: 25 mg Insulin Detemir (Levemir) 10 unit SC Q12 [facility] Last Admin: 05/03/17 21:42 Dose: 10 unit Insulin Human Regular (Humulin R Low) 0 units SC ACHS [facility] PRN Reason: Protocol Last Admin: 10/18/17 21:45 Dose: 2 units Magnesium Hydroxide (Milk Of Magnesia) 30 ml PO DAILY PRN PRN Reason: Constipation Last Admin: 05/01/17 17:15 Dose: 30 ml Memantine (Namenda) 10 mg PO DAILY [facility] Last Admin: 05/03/17 10:20 Dose: 10 mg Montelukast Sodium (Singulair) 10 mg PO HS [facility] Last Admin: 05/03/17 21:46 Dose: 10 mg Quetiapine Fumarate (Seroquel) 12.5 mg PO HS PRN; Protocol PRN Reason: Agitation Senna/Docusate Sodium (Senokot S 50 Mg-8.6 Mg) 2 tab PO HS PRN PRN Reason: Constipation Vitamin B Complex/Vit C/Folic Acid (Nephro-Ester) 1 tab PO 0800 [facility] Last Admin: 05/03/17 07:51 Dose: 1 tab Vitamin D (Vitamin D 400 Intl Units Tab) 400 intlu PO BID [facility] Last Admin: 05/03/17 18:11 Dose: 400 intlu - Labs Labs: 05/02/17 10:00 05/02/17 10:00 PT 11.0 Seconds (9.9-11.8) 04/30/17 00:30 INR 1.02 (0.93-1.08) 04/30/17 00:30 APTT 24.5 Seconds (23.7-30.8) 04/30/17 00:30 - Constitutional Appears: Non-toxic, No Acute Distress - Head Exam Head Exam: NORMAL INSPECTION - Eye Exam Eye Exam: Normal appearance. absent: Scleral icterus - ENT Exam ENT Exam: Mucous Membranes Moist - Respiratory Exam Respiratory Exam: Clear to Ausculation Bilateral. absent: Rales, Rhonchi, Wheezes, Respiratory Distress Additional comments: clear but very shallow breaths; - Cardiovascular Exam Cardiovascular Exam: REGULAR RHYTHM, +S1, +S2 - GI/Abdominal Exam GI & Abdominal Exam: Soft. absent: Tenderness - Exam Exam: Bladder Distension - Extremities Exam Additional comments: no leg edema; - Neurological Exam Neurological Exam: Alert, Awake - Psychiatric Exam Psychiatric exam: Normal Mood - Skin Skin Exam: Warm. 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 ml/min Assessment & Plan: Relatively stable renal function lately; appears to have some bladder distention on exam today, will obtain bladder scan (though no hydro on renal US) ; low dose PO lasix started yesterday for BP control, need to monitor renal function periodically; Status: Chronic (2) Anemia Assessment & Plan: Secondary to advanced CKD; BP still elevated, start aranesp 25 mcg every other week once consistently down to 140's-150's; Status: Chronic (3) Hypertensive CKD (chronic kidney disease) Assessment & Plan: Now on amlodipine 10, coreg 12.5 q12h, hydralazine 25 bid and lasix 20 mg daily ; BP better controlled this morning (SBP in 150's); will avoid dropping SBP below 140's for now; Status: Acute (4) Chronic kidney disease-mineral and bone disorder Assessment & Plan: Phos controlled; PTH elevated but not at the level to start calcitriol; monitor periodically; Status: Acute
[2017-05-04] MEDS: Insulin Reg-LOW-Coverage SC SCH ×4 (11:07→21:55)
[2017-05-04] MEDS: Insulin Detemir 100 units/ml Vial (Levemir) SC SCH ×2 (11:13→21:55)
[2017-05-04] MEDS: Cholecalciferol 400 Intl Units Tab PO SCH ×2 (11:15→17:06)
[2017-05-04 11:37] LABS: URINE BILIRUBIN NEGATIVE (NEGATIVE); URINE BLOOD SMALL (NEGATIVE); URINE GLUCOSE (UA) NEGATIVE (NEGATIVE); URINE KETONE NEGATIVE (NEGATIVE); URINE LEUKOCYTE ESTERASE NEGATIVE Leu/uL (NEGATIVE); URINE PROTEIN 100 mg/dL (<30 mg/dL); URINE UROBILINOGEN 0.2 E.U./dL (<1 E.U./dL)
[2017-05-04 11:44] LABS: URINE APPEARANCE SL CLOUDY (CLEAR); URINE COLOR YELLOW (YELLOW)
[2017-05-04 11:47] LABS: URINE EPITHELIAL CELLS 0 - 2 /hpf (0-5); URINE RBC 0 - 2 /hpf (0-2); URINE WBC 0 - 2 /hpf (0-6)
--- NOTE | 2017-05-04 23:58 | CON ---
HISTORY OF PRESENT ILLNESS: Shortly, the patient is an 86-year-old female with multiple medical issues including hypertension, dyslipidemia, diabetes as well as advanced dementia. The patient was admitted on the medical side for evaluation of hyperglycemia and foot swelling. This commercial real estate underwriter was involved into the patient's care with psychiatric goals or agitation and restless behavior. This commercial real estate underwriter has attempted to speak with the patient today at the morning time. The patient was deeply sleeping, was able to open her eyes, but falling back to sleep again. The patient is not able to provide any information at this morning. Collaterals were obtained from the nursing staff. As per nursing staff, the patient had yesterday and needed to be in the train, but overnight slept through the night. This commercial real estate underwriter also reviewed previous notes from the last year. The patient is doing well on Seroquel as needed for agitation and restless behavior. PHYSICAL EXAMINATION: VITAL SIGNS: This commercial real estate underwriter reviewed vital signs. Vital signs seems to be stable. Blood pressure is mildly elevated of 127/96, pulse is 76, temperature 97.0, and oxygen saturation is 99. MENTAL STATUS EXAMINATION: There was no option to have meaningful conversation with the patient. The patient was deeply sleeping, was opening her eyes. As per nursing staff, the patient is oriented only to herself. The patient has family, two daughters, who saw the patient day before yesterday. MEDICATIONS: The patient is on Tylenol, Norvasc, aspirin, Lipitor, Coreg, Lasix, hydralazine, Levemir, insulin, Namenda 10 mg daily, Singulair, Seroquel will be started at 12.5 mg at the nighttime as needed for agitation and Senokot as well as vitamin D 0.5 mg will be discontinued. LABORATORY DATA: Urinalysis shows blood small, glucose and protein high, also the patient is running total protein of 4240, microalbumin is 150. Continued Staph is in wound culture. IMPRESSION: Most likely, the patient is in delirium stage due to infection of her lower extremities as well as advanced dementia as well as multiple medical problems. PLAN: Continue current management. This commercial real estate underwriter discontinued Risperdal and started Seroquel 12.5 mg at the nighttime as needed for agitation restless behavior. The patient tolerated that medication well. Meanwhile, continue monitoring. Dr. Mc will follow up on this patient tomorrow. Thank you very much for letting me to participate in the care of your patient. Ashley Harrell MD
--- NOTE | 2017-05-05 01:56 | PN ---
PULMONARY PROGRESS NOTE DATE: 05/04/2017 REFERRING PHYSICIAN: Dr. Son. SUBJECTIVE: She is lying in the bed, sleepy, arousable. Daughter is at the bedside. Poor appetite. No bowel movement. No vomiting. No hematuria. No diarrhea. No leg swelling and at times anxious. PHYSICAL EXAMINATION GENERAL: No acute distress. VITAL SIGNS: Temperature 98, heart rate 87, respiratory rate is 20, blood pressure 149/68, pulse ox 98% on nasal cannula. HEENT: Moist mucous membrane. No ulcer or thrush. NECK: Supple. No JVD. LUNGS: Poor effort, but airflow. HEART: S1 and S2. ABDOMEN: Soft, nontender. No organomegaly. EXTREMITIES: No edema. NEUROLOGIC: Sleepy and arousable. Follows simple commands, but confused. MEDICATIONS: She is on hydralazine 20 mg q. 8 hours, aspirin 81 mg daily, Ativan 0.25 mg q. 12 hours p.r.n., Colace 200 mg daily, Coreg 12.5 mg twice a day, DuoNeb q. 6 hours p.r.n., Lasix 20 mg daily, Levemir 10 units subcu q. 12 hours, Lipitor 20 mg daily, Namenda 10 mg daily, Nephro-vitamins daily, Norvasc 10 mg daily, Seroquel 12.5 mg at bedtime, Singulair 10 mg at bedtime, Tylenol p.r.n. basis, vitamin D 400 internation unit twice a day. LABORATORY DATA: Reviewed. Showed blood sugar today is 257. IMPRESSION AND PLAN: Renal failure, hyperglycemia, acute bronchitis, Alzheimer type dementia, hypertension, hypothyroid, oropharyngeal dysphagia, modified diet, constipation, spoke to family at bedside. Spoke with the nursing staff. Keep head at 45 degrees, bronchodilators. Aspiration precaution, Dulcolax daily. Fall precaution. Thank you and we will follow with you. Austin Hurst MD
[2017-05-05] MEDS: Insulin Reg-LOW-Coverage SC SCH ×5 (07:30→23:58)
--- NOTE | 2017-05-05 09:32 | CP.PCM.PN ---
<Clif Bain - Last Filed: 05/05/17 09:30> Subjective - Date & Time of Evaluation Date of Evaluation: 05/05/17 Time of Evaluation: 09:30 - Subjective Subjective: 86 year old female seen bedside for right foot ulceration at MTPJ head. Patient is sleeping in bed resting comfortably. No overnight events per nursing. Patient is on one to one due to recent episodes of sundowning. Objective - Vital Signs/Intake and Output Vital Signs (last 24 hours): Temp Pulse Resp BP Pulse Ox 98.7 F 69 18 166/77 H 96 05/05/17 08:25 05/05/17 08:25 05/05/17 08:25 05/05/17 08:25 05/05/17 08:25 Intake and Output: 05/05/17 05/05/17 06:59 18:59 Intake Total 420 Output Total 1050 Balance -630 - Medications Medications: Current Medications Acetaminophen (Tylenol 325mg Tab) 650 mg PO Q4H PRN PRN Reason: Fever >100.5 F Albuterol/Ipratropium (Duoneb 3 Mg/0.5 Mg (3 Ml) Ud) 3 ml IH [id number] PRN PRN Reason: Sore Throat Amlodipine Besylate (Norvasc) 10 mg PO DAILY [facility] Last Admin: 05/04/17 11:14 Dose: 10 mg Aspirin (Aspirin Chewable) 81 mg PO DAILY [facility] Last Admin: 05/04/17 11:11 Dose: 81 mg Atorvastatin Calcium (Lipitor) 20 mg PO DIN [facility] Last Admin: 05/04/17 17:06 Dose: 20 mg Bisacodyl (Dulcolax) 10 mg RC DAILY [facility] Carvedilol (Coreg) 12.5 mg PO Q12 [facility] Last Admin: 05/04/17 21:54 Dose: 12.5 mg Docusate Sodium (Colace) 200 mg PO DAILY [facility] Last Admin: 05/04/17 11:11 Dose: 200 mg Furosemide (Lasix) 20 mg PO DAILY [facility] Last Admin: 05/04/17 11:13 Dose: 20 mg Hydralazine HCl (Apresoline) 25 mg PO Q8H [facility] Last Admin: 05/05/17 06:46 Dose: 25 mg Insulin Detemir (Levemir) 10 unit SC Q12 [facility] Last Admin: 05/04/17 21:55 Dose: 10 unit Insulin Human Regular (Humulin R Low) 0 units SC ACHS [facility] PRN Reason: Protocol Last Admin: 05/04/17 21:55 Dose: 4 units Lorazepam (Ativan) 0.25 mg IVP BID PRN; Protocol PRN Reason: Agitation Last Admin: 05/04/17 19:55 Dose: 0.25 mg Magnesium Hydroxide (Milk Of Magnesia) 30 ml PO DAILY PRN PRN Reason: Constipation Last Admin: 05/01/17 17:15 Dose: 30 ml Memantine (Namenda) 10 mg PO DAILY [facility] Last Admin: 05/04/17 11:14 Dose: 10 mg Montelukast Sodium (Singulair) 10 mg PO HS [facility] Last Admin: 05/04/17 21:43 Dose: 10 mg Quetiapine Fumarate (Seroquel) 12.5 mg PO HS PRN; Protocol PRN Reason: Agitation Last Admin: 05/04/17 21:42 Dose: 12.5 mg Senna/Docusate Sodium (Senokot S 50 Mg-8.6 Mg) 2 tab PO HS PRN PRN Reason: Constipation Vitamin B Complex/Vit C/Folic Acid (Nephro-Ester) 1 tab PO 0800 [facility] Last Admin: 05/04/17 08:08 Dose: 1 tab Vitamin D (Vitamin D 400 Intl Units Tab) 400 intlu PO BID [facility] Last Admin: 05/04/17 17:06 Dose: 400 intlu - Labs Labs: 05/02/17 10:00 05/02/17 10:00 PT 11.0 Seconds (9.9-11.8) 04/30/17 00:30 INR 1.02 (0.93-1.08) 04/30/17 00:30 APTT 24.5 Seconds (23.7-30.8) 04/30/17 00:30 - Constitutional Appears: Well, Non-toxic, No Acute Distress - Extremities Exam Additional comments: LE focused exam: VASC: DP and PT 2/4 bilaterally, temperature warm to cool from proximal to distal, digital hair noted, CFT <3 seconds x10 digits, edema noted bilaterally Ortho: unable to obtain because patient is sleeping Neuro: unable to obtain because patient is sleeping Derm: Left: closed, healed wound noted to first MTPJ head. No clinical signs of infection noted Right: ulceration noted to the medial aspect of 1st metatarsal head, measuring approximately 1 cm x 1 cm. Wound edges are hyperkeratotic and intact with no opening or dehiscence noted, no erythema or ascending cellulitis, no tunneling, no undermining, no fluctuance or absecess noted. No clinical signs of infection noted. - Neurological Exam Neurological Exam: Alert, Awake, Oriented x3 - Psychiatric Exam Psychiatric exam: Normal Affect, Normal Mood Assessment and Plan - Assessment and Plan (Free Text) Assessment: 86 year old female with PMHx of Alzheimer, DM, HTN, hyperlipidema, anemia, and osteoporosis was seen at bedside for ulceration at medial aspect of right 1st MPJ, stable Plan: Patient seen and evaluated at bedside Charts, labs and vitals reviewed Plan discussed with attending Dr. Joseph Foot xray results 05/01: Normal radiograph of feet Optifoam applied to ulceration of right foot Podiatry will continue to follow while in house <Nathaniel Joseph - Last Filed: 05/05/17 10:10> Objective - Vital Signs/Intake and Output Vital Signs (last 24 hours): Temp Pulse Resp BP Pulse Ox 98.7 F 69 18 166/77 H 96 05/05/17 08:25 05/05/17 08:25 05/05/17 08:25 05/05/17 08:25 05/05/17 08:25 Intake and Output: 05/05/17 05/05/17 06:59 18:59 Intake Total 420 Output Total 1050 Balance -630 - Medications Medications: Current Medications Acetaminophen (Tylenol 325mg Tab) 650 mg PO Q4H PRN PRN Reason: Fever >100.5 F Albuterol/Ipratropium (Duoneb 3 Mg/0.5 Mg (3 Ml) Ud) 3 ml IH [id number] PRN PRN Reason: Sore Throat Amlodipine Besylate (Norvasc) 10 mg PO DAILY [facility] Last Admin: 05/04/17 11:14 Dose: 10 mg Aspirin (Aspirin Chewable) 81 mg PO DAILY [facility] Last Admin: 05/04/17 11:11 Dose: 81 mg Atorvastatin Calcium (Lipitor) 20 mg PO DIN [facility] Last Admin: 05/04/17 17:06 Dose: 20 mg Bisacodyl (Dulcolax) 10 mg RC DAILY [facility] Carvedilol (Coreg) 12.5 mg PO Q12 [facility] Last Admin: 05/04/17 21:54 Dose: 12.5 mg Docusate Sodium (Colace) 200 mg PO DAILY [facility] Last Admin: 05/04/17 11:11 Dose: 200 mg Furosemide (Lasix) 20 mg PO DAILY [facility] Last Admin: 05/04/17 11:13 Dose: 20 mg Hydralazine HCl (Apresoline) 25 mg PO Q8H [facility] Last Admin: 05/05/17 06:46 Dose: 25 mg Insulin Detemir (Levemir) 10 unit SC Q12 [facility] Last Admin: 05/04/17 21:55 Dose: 10 unit Insulin Human Regular (Humulin R Low) 0 units SC ACHS [facility] PRN Reason: Protocol Last Admin: 05/04/17 21:55 Dose: 4 units Lorazepam (Ativan) 0.25 mg IVP BID PRN; Protocol PRN Reason: Agitation Last Admin: 05/04/17 19:55 Dose: 0.25 mg Magnesium Hydroxide (Milk Of Magnesia) 30 ml PO DAILY PRN PRN Reason: Constipation Last Admin: 05/01/17 17:15 Dose: 30 ml Memantine (Namenda) 10 mg PO DAILY [facility] Last Admin: 05/04/17 11:14 Dose: 10 mg Montelukast Sodium (Singulair) 10 mg PO HS [facility] Last Admin: 05/04/17 21:43 Dose: 10 mg Quetiapine Fumarate (Seroquel) 12.5 mg PO HS PRN; Protocol PRN Reason: Agitation Last Admin: 05/04/17 21:42 Dose: 12.5 mg Senna/Docusate Sodium (Senokot S 50 Mg-8.6 Mg) 2 tab PO HS PRN PRN Reason: Constipation Vitamin B Complex/Vit C/Folic Acid (Nephro-Ester) 1 tab PO 0800 [facility] Last Admin: 05/04/17 08:08 Dose: 1 tab Vitamin D (Vitamin D 400 Intl Units Tab) 400 intlu PO BID [facility] Last Admin: 05/04/17 17:06 Dose: 400 intlu - Labs Labs: 05/02/17 10:00 05/02/17 10:00 PT 11.0 Seconds (9.9-11.8) 04/30/17 00:30 INR 1.02 (0.93-1.08) 04/30/17 00:30 APTT 24.5 Seconds (23.7-30.8) 04/30/17 00:30 Attending/Attestation - Attestation I have personally seen and examined this patient.: Yes I have fully participated in the care of the patient.: Yes I have reviewed all pertinent clinical information, including history, physical exam and plan: Yes
[2017-05-05] MEDS: Insulin Detemir 100 units/ml Vial (Levemir) SC SCH (10:58)
[2017-05-05 11:09] LABS: HEMATOCRIT 27.7 % (36.0-48.0); MEAN CELL VOLUME 85.5 fl (80.0-105.0); MEAN CORPUSCULAR HEMOGLOBIN 29.3 pg (25.0-35.0); MEAN CORPUSCULAR HGB CONC 34.3 g/dl (31.0-37.0); MEAN PLATELET VOLUME 9.7 fl (7.0-11.0); WHITE BLOOD COUNT 10.9 10^3/ul (4.5-11.0)
[2017-05-05] MEDS: Multivitamin Vitamin B Complex (Nephro-Vite) Tab PO SCH (11:16)
[2017-05-05] MEDS: Cholecalciferol 400 Intl Units Tab PO SCH ×2 (11:17→17:51)
[2017-05-05 11:25] LABS: CALCIUM 9.3 mg/dL (8.4-10.5); POTASSIUM 3.9 mmol/L (3.6-5.0)
--- NOTE | 2017-05-05 14:45 | PN ---
DATE: SUBJECTIVE: The patient is an 86-year-old female. The patient is seen and examined at the bedside, looking comfortable. When I saw her in the morning, she was very comfortable, getting clean up from the staff, but in the evening I heard she was very restless, anxious, climbing out of the bed. Then we put her on one to one. Dr. Ashley Harrell was consulted, she ordered some Seroquel. No nausea, vomiting, or diarrhea. No hematuria or hematochezia. No headache or dizziness. No chest pain or palpitations. Actually, the patient is not giving any review of systems. PHYSICAL EXAMINATION: VITAL SIGNS: Temperature 97.4, pulse 84, blood pressure 165/87, and respiratory rate 19. HEENT: Head, normocephalic and atraumatic. Eyes, PERRLA. Extraocular muscles intact. Conjunctivae clear. Nose patent. Mucous membranes moist. NECK: Supple. No carotid bruits, JVD, or thyromegaly. CHEST: Bilaterally symmetrical. HEART: S1 and S2 positive. LUNGS: Clear to auscultation. ABDOMEN: Soft. Bowel sounds positive. No organomegaly. EXTREMITIES: No edema. No cyanosis. NEUROLOGICAL: The patient is awake and alert. Moving all four extremities. No focal deficit. MEDICATIONS: Hydralazine, aspirin, Ativan, Colace, Coreg, DuoNeb, insulin, furosemide, Levemir, Lipitor, milk of magnesia, Namenda, Norvasc, Senokot, Seroquel, Singulair, Tylenol, and vitamin D. LABORATORY DATA: White blood cells 9.6, hemoglobin 9.3, hematocrit 27.2, platelets 189,000. Glucose 257, 181, 199, and 293. ASSESSMENT AND PLAN: Ms. Vianey Larose with history of hypertension, diabetes mellitus, chronic kidney disease IV, GFR is less than 50 mL/min, relatively stable renal function, lately as per Nephrology. Length of discussion done with the human resources training manager. The patient obtained a bladder scan, low dose p.o. Lasix started yesterday for blood pressure control, need to may do renal function test. Anemia improving very slowly, hypertensive chronic kidney disease, mineral and bone disorder, history of advanced dementia. Feet problem, pruritus. Gastrointestinal and deep venous thrombosis prophylaxis. Repeat labs. Jaqui Son MD [facility] # [id number] [facility]
--- NOTE | 2017-05-05 17:24 | PN ---
COVERING FOR: Dr. Ashley Harrell. IDENTIFYING INFORMATION: The patient is an 86-year-old female with multiple medical issues including hypertension, dyslipidemia, diabetes mellitus and a history of dementia. Her chart was reviewed and case was discussed with nursing. The patient has been intermittently agitated, attempting to climb out of bed and pulling on her catheter. She is presently sedate, was not combative and has a one-on-one sitter. Her CBC and differential today shows hemoglobin of 9.5, hematocrit 27.7. PHYSICAL EXAMINATION: VITAL SIGNS: Blood pressure 145/65, respiratory rate 18, temperature 98.7, pulse 69. She has been maintained on Apresoline, Ativan p.r.n., Coreg, insulin, Lasix, Levemir, Lipitor, Namenda 10 mg daily, Lasix, Seroquel 12.5 mg at bedtime p.r.n. for agitation. As the patient has been sedated for significant period of time, he will stop the one-on-one sitter with this being reinstituted if needed, with it being reported that most of her agitation has been nocturnal. Jean Mc MD/ PhD
--- NOTE | 2017-05-05 17:28 | CP.PCM.PN ---
Subjective - Date & Time of Evaluation Date of Evaluation: 05/05/17 Time of Evaluation: 12:30 - Subjective Subjective: 86 yo F w/ pmh of htn, dm, CKD V, dementia, sent from jail with lethargy ; Still with difficult to control htn; agitated overnight; no complaints this morning; needing to be fed by nursing staff; Objective - Vital Signs/Intake and Output Vital Signs (last 24 hours): Temp Pulse Resp BP Pulse Ox 98.7 F 72 18 145/65 70 L 05/05/17 08:25 05/05/17 12:32 05/05/17 13:49 05/05/17 13:49 05/05/17 13:49 Intake and Output: 05/05/17 05/05/17 06:59 18:59 Intake Total 420 600 Output Total 1050 800 Balance -630 -200 - Medications Medications: Current Medications Acetaminophen (Tylenol 325mg Tab) 650 mg PO Q4H PRN PRN Reason: Fever >100.5 F Albuterol/Ipratropium (Duoneb 3 Mg/0.5 Mg (3 Ml) Ud) 3 ml IH [id number] PRN PRN Reason: Sore Throat Amlodipine Besylate (Norvasc) 10 mg PO DAILY [facility] Last Admin: 05/05/17 11:15 Dose: 10 mg Aspirin (Aspirin Chewable) 81 mg PO DAILY [facility] Last Admin: 05/05/17 11:11 Dose: 81 mg Atorvastatin Calcium (Lipitor) 20 mg PO DIN [facility] Last Admin: 05/04/17 17:06 Dose: 20 mg Bisacodyl (Dulcolax) 10 mg RC DAILY [facility] Last Admin: 05/05/17 11:14 Dose: 10 mg Carvedilol (Coreg) 12.5 mg PO Q12 [facility] Last Admin: 05/05/17 11:13 Dose: 12.5 mg Docusate Sodium (Colace) 200 mg PO DAILY [facility] Last Admin: 05/05/17 11:12 Dose: 200 mg Furosemide (Lasix) 20 mg PO DAILY [facility] Last Admin: 05/05/17 11:14 Dose: 20 mg Hydralazine HCl (Apresoline) 50 mg PO Q8H [facility] Last Admin: 05/05/17 12:32 Dose: Not Given Insulin Detemir (Levemir) 10 unit SC Q12 [facility] Last Admin: 05/05/17 10:58 Dose: Not Given Insulin Human Regular (Humulin R Low) 0 units SC ACHS [facility] PRN Reason: Protocol Last Admin: 05/05/17 16:31 Dose: Not Given Lorazepam (Ativan) 0.25 mg IVP BID PRN; Protocol PRN Reason: Agitation Last Admin: 05/04/17 19:55 Dose: 0.25 mg Magnesium Hydroxide (Milk Of Magnesia) 30 ml PO DAILY PRN PRN Reason: Constipation Last Admin: 05/01/17 17:15 Dose: 30 ml Memantine (Namenda) 10 mg PO DAILY [facility] Last Admin: 05/05/17 11:16 Dose: 10 mg Montelukast Sodium (Singulair) 10 mg PO HS [facility] Last Admin: 05/04/17 21:43 Dose: 10 mg Quetiapine Fumarate (Seroquel) 12.5 mg PO HS PRN; Protocol PRN Reason: Agitation Last Admin: 05/04/17 21:42 Dose: 12.5 mg Senna/Docusate Sodium (Senokot S 50 Mg-8.6 Mg) 2 tab PO HS PRN PRN Reason: Constipation Vitamin B Complex/Vit C/Folic Acid (Nephro-Ester) 1 tab PO 0800 [facility] Last Admin: 05/05/17 11:16 Dose: 1 tab Vitamin D (Vitamin D 400 Intl Units Tab) 400 intlu PO BID [facility] Last Admin: 05/05/17 11:17 Dose: 400 intlu - Labs Labs: 05/05/17 11:01 05/05/17 11:01 PT 11.0 Seconds (9.9-11.8) 04/30/17 00:30 INR 1.02 (0.93-1.08) 04/30/17 00:30 APTT 24.5 Seconds (23.7-30.8) 04/30/17 00:30 - Constitutional Appears: Non-toxic, No Acute Distress - Head Exam Head Exam: NORMAL INSPECTION - Eye Exam Eye Exam: Normal appearance. absent: Scleral icterus - ENT Exam ENT Exam: Mucous Membranes Moist - Respiratory Exam Respiratory Exam: absent: Rhonchi, Wheezes, Respiratory Distress Additional comments: some basal rales but patient not taking adequate breaths on exam; - Cardiovascular Exam Cardiovascular Exam: REGULAR RHYTHM, +S1, +S2. absent: Gallop - GI/Abdominal Exam GI & Abdominal Exam: Soft. absent: Distended, Tenderness - Exam Exam: absent: Bladder Distension - Extremities Exam Additional comments: no leg edema; - Neurological Exam Neurological Exam: Alert, Awake - Psychiatric Exam Psychiatric exam: absent: Agitated - Skin Skin Exam: Warm. 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 ml/min Assessment & Plan: Fluctuating serum creatinine due to hemodynamic changes (diuretics, BP control) ; stable electrolyte and volume status; should continue to monitor renal function periodically; Status: Chronic (2) Anemia Assessment & Plan: Hgb stable, still mildly below goal for advanced CKD (10-11 g); still holding aranesp until BP better controlled; Status: Chronic (3) Hypertensive CKD (chronic kidney disease) Assessment & Plan: BP still uncontrolled on amlodipine 10, coreg 12.5 bid, hydralazine 25 q8h and lasix 20 mg daily; increasing hydralazine to 50 mg q8h; Status: Acute (4) Chronic kidney disease-mineral and bone disorder Status: Chronic (5) Urinary retention Assessment & Plan: Seen yesterday with distended bladder on exam; no UTI; not on any meds that may be causative; will d/c burrell and give voiding trial; Status: Acute
--- NOTE | 2017-05-05 22:20 | PN ---
DATE: SUBJECTIVE: The patient is an 86-year-old female. The patient seen and examined on the bedside. Looking comfortable, sleepy, arousable. As per nursing staff, the patient is sleeping daytime, but whole night she is aggressive, agitated, tried to climb out of the bed, then was put on one-to-one. No nausea, vomiting, or diarrhea. No hematuria or hematochezia. No swelling of the legs. No chest pain or palpitations. No dizziness. PHYSICAL EXAMINATION: VITAL SIGNS: Temperature 98.5, pulse 72, blood pressure 145/65, and respiratory rate 18. HEENT: Head, normocephalic and atraumatic. Eyes, PERRLA. Extraocular muscles intact. Conjunctivae clear. Nose patent. Mucous membranes moist. NECK: Supple. No carotid bruits, JVD, or thyromegaly. CHEST: Bilaterally symmetrical. HEART: S1 and S2 positive. LUNGS: Clear to auscultation. ABDOMEN: Soft. Bowel sounds positive. No organomegaly. EXTREMITIES: No edema. No cyanosis.RT. FOOT big toe ulceration . NEUROLOGICAL: The patient is awake and alert. Moving all four extremities. No focal deficit. MEDICATIONS: Hydralazine, aspirin, Ativan, Colace, Coreg, Dulcolax, DuoNeb, insulin, Lasix, Levemir, Lipitor, milk of magnesia, Namenda, Seroquel, vitamin D. LABORATORY DATA: White blood cells 10.9, hemoglobin 9.5, hematocrit 27.7, platelets 207,000. Sodium 143, potassium 3.9, BUN 64, creatinine 4.3, glucose 317. ASSESSMENT AND PLAN: Ms. Vianey Larose is an 86-year-old lady with anemia, hyperchloremia, renal insufficiency, hyperglycemia, advanced dementia, reversal of her sleep cycle, sleep specialist, Dr. Hurst is on the case, history of chronic kidney disease number 5. According to medical interpreter, still with [id number] hypertension. The patient is agitated overnight. Anemia, holding her Aranesp until blood pressure is controlled. History of urinary retention, according to Dr. Aniket Holcomb discontinue the Colace. Give voiding trial. Seen by Dr. Mc, psychiatrist. Chronic obstructive pulmonary disease, acute bronchitis, hypothyroidism, oropharyngeal dysphagia, modified diet, constipation, aspiration precautions, Dulcolax given, fall precaution, GI/DVT prophylaxis. Repeat labs. Jaqui Son MD [facility]
--- NOTE | 2017-05-05 22:30 | PN ---
DATE: 05/05/2017 PULMONARY PROGRESS NOTE REFERRING PHYSICIAN: Dr. Son. SUBJECTIVE: She is lying in the bed, head at 45 degrees, sleepy under one-to-one supervision, tolerated p.o. diet well. No vomiting, no hematuria, no diarrhea reported. OBJECTIVE: GENERAL: No acute distress. VITAL SIGNS: Temperature is 98, heart rate is 72, respiratory rate is 18, blood pressure 145/65 and pulse ox 96% on room air. HEENT: Moist mucous membrane. Small oral cavity. NECK: Supple. No JVD. LUNGS: Fair airflow with few rhonchi. HEART: S1 and S2. ABDOMEN: Soft and nontender. No organomegaly. EXTREMITIES: There is no edema. NEUROLOGICALLY: Sleepy, arousable, follow simple commands, but confused. MEDICATIONS: She is on aspirin 81 mg daily; Ativan 0.25 mg IV twice a day, p.r.n. for agitation; Colace 200 mg daily; Coreg 12.5 mg twice a day; Dulcolax 10 mg rectal daily; DuoNeb q. 6 hours, p.r.n.; insulin coverage; Lasix 20 mg daily; Levemir 10 units subQ q. 12 hours; Lipitor 20 mg daily; milk of magnesia p.r.n. basis; Namenda is 10 mg daily; Nephro-Ester once daily; Norvasc 10 mg daily; Senokot p.r.n. basis; Seroquel 12.5 mg at bedtime; Singulair 10 mg at bedtime; Tylenol p.r.n. basis and vitamin D of 400 International Units twice a da. LABORATORY DATA: Show hemoglobin 9.5, hematocrit 27.7, WBC 10.9 and platelets are 207. Sodium 143, potassium 3.9, chloride 108, bicarbonate 26, BUN 64, creatinine 4.3, glucose 114 and calcium 9.3. Microbiology: Urine culture is no growth, foot wound has coag-negative staph. IMPRESSION AND PLAN: Renal failure, hyperglycemia, acute bronchitis, Alzheimer type dementia, hypertension, hypothyroid, oropharyngeal dysphagia, modified diet, constipation, anxiety disorder, high risk for fall. Pulmonary point of view, doing okay, keep head elevated at 45 degrees, aspiration precaution. Being managed by psychiatry for anxiety medication. Thank you and we will follow with you. Austin Hurst MD [facility] # [id number]
[2017-05-06] MEDS: Insulin Detemir 100 units/ml Vial (Levemir) SC SCH ×3 (00:05→21:26)
[2017-05-06] MEDS: Insulin Reg-LOW-Coverage SC SCH ×4 (08:15→21:26)
--- NOTE | 2017-05-06 09:21 | CP.PCM.PN ---
<Lita Ku - Last Filed: 05/06/17 09:19> Subjective - Date & Time of Evaluation Date of Evaluation: 05/06/17 Time of Evaluation: 09:19 - Subjective Subjective: 86 year old female seen bedside for right foot ulceration at MTPJ head. Patient is sleeping in bed resting comfortably. No overnight events per nursing. Objective - Vital Signs/Intake and Output Vital Signs (last 24 hours): Temp Pulse Resp BP Pulse Ox 98.1 F 74 20 153/74 H 96 05/06/17 00:05 05/06/17 06:42 05/06/17 00:05 05/06/17 06:42 05/06/17 00:05 - Medications Medications: Current Medications Acetaminophen (Tylenol 325mg Tab) 650 mg PO Q4H PRN PRN Reason: Fever >100.5 F Albuterol/Ipratropium (Duoneb 3 Mg/0.5 Mg (3 Ml) Ud) 3 ml IH [id number] PRN PRN Reason: Sore Throat Amlodipine Besylate (Norvasc) 10 mg PO DAILY [facility] Last Admin: 05/05/17 11:15 Dose: 10 mg Aspirin (Aspirin Chewable) 81 mg PO DAILY [facility] Last Admin: 05/05/17 11:11 Dose: 81 mg Atorvastatin Calcium (Lipitor) 20 mg PO DIN [facility] Last Admin: 05/05/17 17:51 Dose: 20 mg Bisacodyl (Dulcolax) 10 mg RC DAILY [facility] Last Admin: 05/05/17 11:14 Dose: 10 mg Carvedilol (Coreg) 12.5 mg PO Q12 [facility] Last Admin: 05/06/17 00:02 Dose: 12.5 mg Docusate Sodium (Colace) 200 mg PO DAILY [facility] Last Admin: 05/05/17 11:12 Dose: 200 mg Furosemide (Lasix) 20 mg PO DAILY [facility] Last Admin: 05/05/17 11:14 Dose: 20 mg Hydralazine HCl (Apresoline) 50 mg PO Q8H [facility] Last Admin: 05/06/17 06:42 Dose: 50 mg Insulin Detemir (Levemir) 10 unit SC Q12 [facility] Last Admin: 05/06/17 00:05 Dose: 10 unit Insulin Human Regular (Humulin R Low) 0 units SC ACHS [facility] PRN Reason: Protocol Last Admin: 05/06/17 08:15 Dose: 1 units Lorazepam (Ativan) 0.25 mg IVP BID PRN; Protocol PRN Reason: Agitation Last Admin: 05/06/17 06:16 Dose: 0.25 mg Magnesium Hydroxide (Milk Of Magnesia) 30 ml PO DAILY PRN PRN Reason: Constipation Last Admin: 05/01/17 17:15 Dose: 30 ml Memantine (Namenda) 10 mg PO DAILY [facility] Last Admin: 05/05/17 11:16 Dose: 10 mg Montelukast Sodium (Singulair) 10 mg PO HS [facility] Last Admin: 05/06/17 00:02 Dose: 10 mg Quetiapine Fumarate (Seroquel) 12.5 mg PO HS PRN; Protocol PRN Reason: Agitation Last Admin: 05/06/17 00:03 Dose: 12.5 mg Senna/Docusate Sodium (Senokot S 50 Mg-8.6 Mg) 2 tab PO HS PRN PRN Reason: Constipation Vitamin B Complex/Vit C/Folic Acid (Nephro-Ester) 1 tab PO 0800 [facility] Last Admin: 05/05/17 11:16 Dose: 1 tab Vitamin D (Vitamin D 400 Intl Units Tab) 400 intlu PO BID [facility] Last Admin: 05/05/17 17:51 Dose: 400 intlu - Labs Labs: 05/05/17 11:01 05/05/17 11:01 PT 11.0 Seconds (9.9-11.8) 04/30/17 00:30 INR 1.02 (0.93-1.08) 04/30/17 00:30 APTT 24.5 Seconds (23.7-30.8) 04/30/17 00:30 - Constitutional Appears: Well, Non-toxic, No Acute Distress - Extremities Exam Additional comments: LE focused exam: VASC: DP and PT 2/4 bilaterally, temperature warm to cool from proximal to distal, digital hair noted, CFT <3 seconds x10 digits, edema noted bilaterally Ortho: unable to obtain because patient is sleeping Neuro: unable to obtain because patient is sleeping Derm: Left: closed, healed wound noted to first MTPJ head. No clinical signs of infection noted Right: ulceration noted to the medial aspect of 1st metatarsal head, measuring approximately 1 cm x 1 cm. Wound edges are hyperkeratotic and intact with no opening or dehiscence noted, no erythema or ascending cellulitis, no tunneling, no undermining, no fluctuance or absecess noted. No clinical signs of infection noted. - Neurological Exam Neurological Exam: Alert, Awake, Oriented x3 - Psychiatric Exam Psychiatric exam: Normal Affect, Normal Mood Assessment and Plan - Assessment and Plan (Free Text) Assessment: 86 year old female with PMHx of Alzheimer, DM, HTN, hyperlipidema, anemia, and osteoporosis was seen at bedside for ulceration at medial aspect of right 1st MPJ, stable Plan: Patient seen and evaluated at bedside with attending Dr. Joseph Charts, labs and vitals reviewed; afebrile Foot xray results 05/01: Normal radiograph of feet Optifoam applied to ulceration of right foot Podiatry will continue to follow while in house <Nathaniel Joseph - Last Filed: 05/08/17 08:29> Objective - Vital Signs/Intake and Output Vital Signs (last 24 hours): Temp Pulse Resp BP Pulse Ox 97.9 F 63 16 149/73 100 05/08/17 00:00 05/08/17 00:00 05/08/17 00:00 05/08/17 00:00 05/08/17 00:00 - Medications Medications: Current Medications Acetaminophen (Tylenol 325mg Tab) 650 mg PO Q4H PRN PRN Reason: Fever >100.5 F Albuterol/Ipratropium (Duoneb 3 Mg/0.5 Mg (3 Ml) Ud) 3 ml IH [id number] PRN PRN Reason: Sore Throat Amlodipine Besylate (Norvasc) 10 mg PO DAILY [facility] Last Admin: 05/07/17 10:09 Dose: 10 mg Aspirin (Aspirin Chewable) 81 mg PO DAILY [facility] Last Admin: 05/07/17 10:11 Dose: 81 mg Atorvastatin Calcium (Lipitor) 20 mg PO DIN [facility] Last Admin: 05/07/17 17:49 Dose: 20 mg Bisacodyl (Dulcolax) 10 mg RC DAILY [facility] Last Admin: 05/07/17 12:06 Dose: 10 mg Carvedilol (Coreg) 12.5 mg PO Q12 [facility] Last Admin: 05/07/17 21:42 Dose: 12.5 mg Darbepoetin Sadi (Aranesp) 25 mcg SC SUN [facility] Last Admin: 05/07/17 17:48 Dose: 25 mcg Docusate Sodium (Colace) 200 mg PO DAILY [facility] Last Admin: 05/07/17 10:11 Dose: 200 mg Furosemide (Lasix) 20 mg PO QOTHERDAY [facility] Hydralazine HCl (Apresoline) 50 mg PO Q8H [facility] Last Admin: 05/08/17 07:02 Dose: Not Given Insulin Detemir (Levemir) 10 unit SC Q12 [facility] Last Admin: 05/07/17 21:41 Dose: 10 unit Insulin Human Regular (Humulin R Low) 0 units SC ACHS [facility] PRN Reason: Protocol Last Admin: 05/07/17 21:41 Dose: 4 units Lorazepam (Ativan) 0.25 mg IVP BID PRN; Protocol PRN Reason: Agitation Last Admin: 05/07/17 19:42 Dose: 0.25 mg Magnesium Hydroxide (Milk Of Magnesia) 30 ml PO DAILY PRN PRN Reason: Constipation Last Admin: 05/01/17 17:15 Dose: 30 ml Memantine (Namenda) 10 mg PO DAILY [facility] Last Admin: 05/07/17 10:11 Dose: 10 mg Montelukast Sodium (Singulair) 10 mg PO HS [facility] Last Admin: 05/07/17 21:42 Dose: 10 mg Quetiapine Fumarate (Seroquel) 12.5 mg PO HS PRN; Protocol PRN Reason: Agitation Last Admin: 05/07/17 21:42 Dose: 12.5 mg Senna/Docusate Sodium (Senokot S 50 Mg-8.6 Mg) 2 tab PO HS PRN PRN Reason: Constipation Last Admin: 05/06/17 17:00 Dose: 2 tab Vitamin B Complex/Vit C/Folic Acid (Nephro-Ester) 1 tab PO 0800 [facility] Last Admin: 05/07/17 10:14 Dose: 1 tab Vitamin D (Vitamin D 400 Intl Units Tab) 400 intlu PO BID [facility] Last Admin: 05/07/17 17:51 Dose: 400 intlu - Labs Labs: 05/07/17 11:15 05/07/17 11:15 PT 11.0 Seconds (9.9-11.8) 04/30/17 00:30 INR 1.02 (0.93-1.08) 04/30/17 00:30 APTT 24.5 Seconds (23.7-30.8) 04/30/17 00:30 Attending/Attestation - Attestation I have personally seen and examined this patient.: Yes I have fully participated in the care of the patient.: Yes I have reviewed all pertinent clinical information, including history, physical exam and plan: Yes
[2017-05-06] MEDS: Cholecalciferol 400 Intl Units Tab PO SCH ×2 (10:52→17:00)
[2017-05-06] MEDS: Multivitamin Vitamin B Complex (Nephro-Vite) Tab PO SCH (10:52)
--- NOTE | 2017-05-06 13:53 | PN ---
DATE: SUBJECTIVE: The patient is seen and examined on the bedside, looking comfortable. No nausea, vomiting or diarrhea. No hematuria or hematochezia. No swelling of the legs, except that the right foot medial side of great toe has dressing. No fever, no chills. The patient is a very poor historian, but looks like comfortable resting, ready to have breakfast. PHYSICAL EXAMINATION VITAL SIGNS: Temperature 98.1, pulse 74, respiratory rate 20, blood pressure 153/74, pulse oximetry 96. HEENT: Head; normocephalic and atraumatic. Eyes; PERRLA. Extraocular muscles are intact. Conjunctivae are clear. Nose is patent. Mucous membranes are moist. NECK: Supple. No carotid bruits, no JVD or thyromegaly. CHEST: Bilaterally symmetrical. HEART: S1 and S2 positive. LUNGS: Clear to auscultation. ABDOMEN: Soft. Bowel sounds positive. No organomegaly. EXTREMITIES: Upper extremities, no edema, no cyanosis. Right foot medial side of the big toe has ulcer, the rougher operator is taking care of that. NEUROLOGIC: The patient is awake and alert, but getting attacks of confusion. Moving all 4 extremities. MEDICATIONS: Tylenol, DuoNeb, Norvasc, aspirin, Lipitor, Dulcolax, Coreg, Colace, Lasix, hydralazine, Levemir, Ativan, hydroxide, Namenda, Singulair, Seroquel. LABORATORY DATA: White blood cell 7.9, hemoglobin 9.5, hematocrit 27.7, platelet 207. Sodium 143, potassium 3.9, BUN 64, creatinine 4.3, glucose 114. ASSESSMENT AND PLAN: Ms. Vianey Larose is an 86-year-old lady with anemia; renal insufficiency, improving; hyperglycemia; hyperchloremia; has history of advanced dementia; hypertension; hypercholesterolemia; osteoporosis; degenerative joint disease; has ulceration on the medial aspect of the right first metatarsophalangeal joint, as per Podiatry, is stable. Optifoam applied to ulceration of the right foot by the Podiatry. The patient is getting anxiety at night. Fort that, psychiatrist is on the case and I think the patient has reversal of the sleep cycle. She is sleepy at daytime and awake at nighttime. Dr. Hurst, the sleep specialist, is on the case. Acute bronchitis; hypothyroidism; oropharyngeal dysphagia, is on modified diet; constipation, is getting stool softener. Fall precautions, aspiration precautions. The patient is on one-to-one when she is awake. We will repeat lab. GI and DVT prophylaxis. Continue present treatment. We will follow. Jaqui Son MD
--- NOTE | 2017-05-06 14:53 | CP.PCM.PN ---
Objective - Vital Signs/Intake and Output Vital Signs (last 24 hours): Temp Pulse Resp BP Pulse Ox 98.1 F 74 20 145/72 96 05/06/17 00:05 05/06/17 06:42 05/06/17 00:05 05/06/17 14:20 05/06/17 00:05 - Medications Medications: Current Medications Acetaminophen (Tylenol 325mg Tab) 650 mg PO Q4H PRN PRN Reason: Fever >100.5 F Albuterol/Ipratropium (Duoneb 3 Mg/0.5 Mg (3 Ml) Ud) 3 ml IH [id number] PRN PRN Reason: Sore Throat Amlodipine Besylate (Norvasc) 10 mg PO DAILY [facility] Last Admin: 05/06/17 10:52 Dose: 10 mg Aspirin (Aspirin Chewable) 81 mg PO DAILY [facility] Last Admin: 05/06/17 10:51 Dose: 81 mg Atorvastatin Calcium (Lipitor) 20 mg PO DIN [facility] Last Admin: 05/05/17 17:51 Dose: 20 mg Bisacodyl (Dulcolax) 10 mg RC DAILY [facility] Last Admin: 05/06/17 10:53 Dose: 10 mg Carvedilol (Coreg) 12.5 mg PO Q12 [facility] Last Admin: 05/06/17 10:54 Dose: 12.5 mg Docusate Sodium (Colace) 200 mg PO DAILY [facility] Last Admin: 05/06/17 10:52 Dose: 200 mg Furosemide (Lasix) 20 mg PO DAILY [facility] Last Admin: 05/06/17 10:51 Dose: 20 mg Hydralazine HCl (Apresoline) 50 mg PO Q8H [facility] Last Admin: 05/06/17 14:20 Dose: 50 mg Insulin Detemir (Levemir) 10 unit SC Q12 [facility] Last Admin: 05/06/17 10:52 Dose: 10 unit Insulin Human Regular (Humulin R Low) 0 units SC ACHS [facility] PRN Reason: Protocol Last Admin: 05/06/17 12:00 Dose: 2 units Lorazepam (Ativan) 0.25 mg IVP BID PRN; Protocol PRN Reason: Agitation Last Admin: 05/06/17 06:16 Dose: 0.25 mg Magnesium Hydroxide (Milk Of Magnesia) 30 ml PO DAILY PRN PRN Reason: Constipation Last Admin: 05/01/17 17:15 Dose: 30 ml Memantine (Namenda) 10 mg PO DAILY [facility] Last Admin: 05/06/17 10:51 Dose: 10 mg Montelukast Sodium (Singulair) 10 mg PO HS [facility] Last Admin: 05/06/17 00:02 Dose: 10 mg Quetiapine Fumarate (Seroquel) 12.5 mg PO HS PRN; Protocol PRN Reason: Agitation Last Admin: 05/06/17 00:03 Dose: 12.5 mg Senna/Docusate Sodium (Senokot S 50 Mg-8.6 Mg) 2 tab PO HS PRN PRN Reason: Constipation Vitamin B Complex/Vit C/Folic Acid (Nephro-Ester) 1 tab PO 0800 [facility] Last Admin: 05/06/17 10:52 Dose: 1 tab Vitamin D (Vitamin D 400 Intl Units Tab) 400 intlu PO BID [facility] Last Admin: 05/06/17 10:52 Dose: 400 intlu - Labs Labs: 05/05/17 11:01 05/05/17 11:01 PT 11.0 Seconds (9.9-11.8) 04/30/17 00:30 INR 1.02 (0.93-1.08) 04/30/17 00:30 APTT 24.5 Seconds (23.7-30.8) 04/30/17 00:30 Assessment and Plan (1) CKD (chronic kidney disease) stage 5, GFR less than 15 ml/min Status: Chronic (2) Anemia Status: Chronic (3) Hypertensive CKD (chronic kidney disease) Status: Acute (4) 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
--- NOTE | 2017-05-07 00:13 | PN ---
PULMONARY PROGRESS NOTE DATE: 05/06/2017 REFERRING PHYSICIAN: Dr. Son. SUBJECTIVE: The patient is lying in the bed, sleepy, being monitored by camera for her safety. No cough. No sputum production. No hemoptysis, no hematemesis, no hematuria, no diarrhea reported. OBJECTIVE: GENERAL: In no acute distress. VITAL SIGNS: Temperature is 98, heart rate is 74, respiratory rate is 20, blood pressure 153/74, pulse ox 96% on room air. HEENT: Moist mucous membrane. No ulcer or thrush. NECK: Supple. No JVD. LUNGS: Fair airflow with few rhonchi. HEART: S1 and S2. ABDOMEN: Soft, nontender. No organomegaly. EXTREMITIES: No edema. NEUROLOGIC: Sleepy and arousable. Follows simple commands, but confused. MEDICATIONS: She is on hydralazine 50 mg q.8 hours, aspirin 81 mg daily, Ativan 0.25 mg twice a day p.r.n., Colace 200 mg daily, Coreg 12.5 mg twice a day, Dulcolax 10 mg rectally, DuoNeb q.6 hours p.r.n., Lasix 20 mg daily, Levemir 10 units subcutaneous q.12 hours, Lipitor 20 mg daily, milk of magnesia 30 mL daily p.r.n., Namenda 10 mg daily, vitamin B complex daily, Norvasc 10 mg daily, Senokot p.r.n. basis, Seroquel 12.5 mg at bedtime, Singulair 10 mg daily, Tylenol p.r.n. basis, vitamin D 400 internation unit twice a day. LABORATORY DATA: Reviewed. Blood sugar this morning is 230. IMPRESSION AND PLAN: Renal failure, hyperglycemia, acute bronchitis, oropharyngeal dysphagia, modified diet, constipation, anxiety disorder. Pulmonary point of view, doing okay, keep head elevated at 45 degrees, aspiration precaution, gastric prophylaxis, deep venous thrombosis prophylaxis being followed by Psychiatry, fall precaution. Thank you and we will follow with you. Asutin Hurst MD
[2017-05-07] MEDS: Insulin Reg-LOW-Coverage SC SCH ×4 (08:34→21:41)
[2017-05-07] MEDS: Cholecalciferol 400 Intl Units Tab PO SCH ×2 (10:09→17:51)
[2017-05-07] MEDS: Insulin Detemir 100 units/ml Vial (Levemir) SC SCH ×2 (10:11→21:41)
[2017-05-07] MEDS: Multivitamin Vitamin B Complex (Nephro-Vite) Tab PO SCH (10:14)
--- NOTE | 2017-05-07 10:59 | CP.PCM.PN ---
<Lita Ku - Last Filed: 05/07/17 10:56> Subjective - Date & Time of Evaluation Date of Evaluation: 05/07/17 Time of Evaluation: 10:56 - Subjective Subjective: 86 year old female seen bedside for right foot ulceration at MTPJ head. Patient is sleeping in bed resting comfortably. No overnight events per nursing. Patient on a 07/17 at the time of visit due to safety precautions. Objective - Vital Signs/Intake and Output Vital Signs (last 24 hours): Temp Pulse Resp BP Pulse Ox 98.2 F 70 18 137/70 98 05/07/17 07:00 05/07/17 07:00 05/07/17 07:00 05/07/17 10:12 05/07/17 07:00 - Medications Medications: Current Medications Acetaminophen (Tylenol 325mg Tab) 650 mg PO Q4H PRN PRN Reason: Fever >100.5 F Albuterol/Ipratropium (Duoneb 3 Mg/0.5 Mg (3 Ml) Ud) 3 ml IH [id number] PRN PRN Reason: Sore Throat Amlodipine Besylate (Norvasc) 10 mg PO DAILY [facility] Last Admin: 05/07/17 10:09 Dose: 10 mg Aspirin (Aspirin Chewable) 81 mg PO DAILY [facility] Last Admin: 05/07/17 10:11 Dose: 81 mg Atorvastatin Calcium (Lipitor) 20 mg PO DIN [facility] Last Admin: 05/06/17 17:00 Dose: 20 mg Bisacodyl (Dulcolax) 10 mg RC DAILY [facility] Last Admin: 05/06/17 10:53 Dose: 10 mg Carvedilol (Coreg) 12.5 mg PO Q12 [facility] Last Admin: 05/07/17 10:12 Dose: 12.5 mg Docusate Sodium (Colace) 200 mg PO DAILY [facility] Last Admin: 05/07/17 10:11 Dose: 200 mg Furosemide (Lasix) 20 mg PO DAILY [facility] Last Admin: 05/07/17 10:10 Dose: 20 mg Hydralazine HCl (Apresoline) 50 mg PO Q8H [facility] Last Admin: 05/07/17 06:33 Dose: 50 mg Insulin Detemir (Levemir) 10 unit SC Q12 [facility] Last Admin: 05/07/17 10:11 Dose: 10 unit Insulin Human Regular (Humulin R Low) 0 units SC ACHS [facility] PRN Reason: Protocol Last Admin: 05/07/17 08:34 Dose: Not Given Lorazepam (Ativan) 0.25 mg IVP BID PRN; Protocol PRN Reason: Agitation Last Admin: 05/06/17 17:53 Dose: 0.25 mg Magnesium Hydroxide (Milk Of Magnesia) 30 ml PO DAILY PRN PRN Reason: Constipation Last Admin: 05/01/17 17:15 Dose: 30 ml Memantine (Namenda) 10 mg PO DAILY [facility] Last Admin: 05/07/17 10:11 Dose: 10 mg Montelukast Sodium (Singulair) 10 mg PO HS [facility] Last Admin: 05/06/17 21:49 Dose: 10 mg Quetiapine Fumarate (Seroquel) 12.5 mg PO HS PRN; Protocol PRN Reason: Agitation Last Admin: 05/06/17 21:49 Dose: 12.5 mg Senna/Docusate Sodium (Senokot S 50 Mg-8.6 Mg) 2 tab PO HS PRN PRN Reason: Constipation Last Admin: 05/06/17 17:00 Dose: 2 tab Vitamin B Complex/Vit C/Folic Acid (Nephro-Ester) 1 tab PO 0800 [facility] Last Admin: 05/07/17 10:14 Dose: 1 tab Vitamin D (Vitamin D 400 Intl Units Tab) 400 intlu PO BID [facility] Last Admin: 05/07/17 10:09 Dose: 400 intlu - Labs Labs: 05/05/17 11:01 05/05/17 11:01 PT 11.0 Seconds (9.9-11.8) 04/30/17 00:30 INR 1.02 (0.93-1.08) 04/30/17 00:30 APTT 24.5 Seconds (23.7-30.8) 04/30/17 00:30 - Constitutional Appears: Well, Non-toxic, No Acute Distress - Extremities Exam Additional comments: LE focused exam: VASC: DP and PT 2/4 bilaterally, temperature warm to cool from proximal to distal, digital hair noted, CFT <3 seconds x10 digits, edema noted bilaterally Ortho: unable to obtain because patient is sleeping Neuro: unable to obtain because patient is sleeping Derm: Left: closed, healed wound noted to first MTPJ head. No clinical signs of infection noted Right: ulceration noted to the medial aspect of 1st metatarsal head, measuring approximately 1 cm x 1 cm. Wound edges are hyperkeratotic and intact with no opening or dehiscence noted, no erythema or ascending cellulitis, no tunneling, no undermining, no fluctuance or absecess noted. No clinical signs of infection noted. - Neurological Exam Neurological Exam: Alert, Awake, Oriented x3 - Psychiatric Exam Psychiatric exam: Normal Affect, Normal Mood Assessment and Plan - Assessment and Plan (Free Text) Assessment: 86 year old female with PMHx of Alzheimer, DM, HTN, hyperlipidema, anemia, and osteoporosis was seen at bedside for ulceration at medial aspect of right 1st MPJ, stable Plan: Patient seen and evaluated at bedside discussed with attending Dr. Joseph Charts, labs and vitals reviewed; afebrile Foot xray results 05/01: Normal radiograph of feet Optifoam applied to ulceration of right foot Podiatry will continue to follow while in house <Nathaniel Joseph - Last Filed: 05/08/17 08:31> Objective - Vital Signs/Intake and Output Vital Signs (last 24 hours): Temp Pulse Resp BP Pulse Ox 97.9 F 63 16 149/73 100 05/08/17 00:00 05/08/17 00:00 05/08/17 00:00 05/08/17 00:00 05/08/17 00:00 - Medications Medications: Current Medications Acetaminophen (Tylenol 325mg Tab) 650 mg PO Q4H PRN PRN Reason: Fever >100.5 F Albuterol/Ipratropium (Duoneb 3 Mg/0.5 Mg (3 Ml) Ud) 3 ml IH [id number] PRN PRN Reason: Sore Throat Amlodipine Besylate (Norvasc) 10 mg PO DAILY [facility] Last Admin: 05/07/17 10:09 Dose: 10 mg Aspirin (Aspirin Chewable) 81 mg PO DAILY [facility] Last Admin: 05/07/17 10:11 Dose: 81 mg Atorvastatin Calcium (Lipitor) 20 mg PO DIN [facility] Last Admin: 05/07/17 17:49 Dose: 20 mg Bisacodyl (Dulcolax) 10 mg RC DAILY [facility] Last Admin: 05/07/17 12:06 Dose: 10 mg Carvedilol (Coreg) 12.5 mg PO Q12 [facility] Last Admin: 05/07/17 21:42 Dose: 12.5 mg Darbepoetin Sadi (Aranesp) 25 mcg SC SUN [facility] Last Admin: 05/07/17 17:48 Dose: 25 mcg Docusate Sodium (Colace) 200 mg PO DAILY [facility] Last Admin: 05/07/17 10:11 Dose: 200 mg Furosemide (Lasix) 20 mg PO QOTHERDAY [facility] Hydralazine HCl (Apresoline) 50 mg PO Q8H [facility] Last Admin: 05/08/17 07:02 Dose: Not Given Insulin Detemir (Levemir) 10 unit SC Q12 [facility] Last Admin: 05/07/17 21:41 Dose: 10 unit Insulin Human Regular (Humulin R Low) 0 units SC ACHS [facility] PRN Reason: Protocol Last Admin: 05/07/17 21:41 Dose: 4 units Lorazepam (Ativan) 0.25 mg IVP BID PRN; Protocol PRN Reason: Agitation Last Admin: 05/07/17 19:42 Dose: 0.25 mg Magnesium Hydroxide (Milk Of Magnesia) 30 ml PO DAILY PRN PRN Reason: Constipation Last Admin: 05/01/17 17:15 Dose: 30 ml Memantine (Namenda) 10 mg PO DAILY [facility] Last Admin: 05/07/17 10:11 Dose: 10 mg Montelukast Sodium (Singulair) 10 mg PO HS [facility] Last Admin: 05/07/17 21:42 Dose: 10 mg Quetiapine Fumarate (Seroquel) 12.5 mg PO HS PRN; Protocol PRN Reason: Agitation Last Admin: 05/07/17 21:42 Dose: 12.5 mg Senna/Docusate Sodium (Senokot S 50 Mg-8.6 Mg) 2 tab PO HS PRN PRN Reason: Constipation Last Admin: 05/06/17 17:00 Dose: 2 tab Vitamin B Complex/Vit C/Folic Acid (Nephro-Ester) 1 tab PO 0800 [facility] Last Admin: 05/07/17 10:14 Dose: 1 tab Vitamin D (Vitamin D 400 Intl Units Tab) 400 intlu PO BID [facility] Last Admin: 05/07/17 17:51 Dose: 400 intlu - Labs Labs: 05/07/17 11:15 05/07/17 11:15 PT 11.0 Seconds (9.9-11.8) 04/30/17 00:30 INR 1.02 (0.93-1.08) 04/30/17 00:30 APTT 24.5 Seconds (23.7-30.8) 04/30/17 00:30 Attending/Attestation - Attestation I have personally seen and examined this patient.: Yes I have fully participated in the care of the patient.: Yes I have reviewed all pertinent clinical information, including history, physical exam and plan: Yes
[2017-05-07 11:28] LABS: BASO # 0.04 K/mm3 (0.0-2.0); BASO % 0.3 % (0.0-3.0); EOS # 0.4 (0.0-0.7); GRAN # 8.17 (1.4-6.5); GRAN % 65.5 % (50.0-68.0); HEMATOCRIT 25.6 % (36.0-48.0); LYMPH # 2.9 (1.2-3.4); LYMPH % 23.1 % (22.0-35.0); MEAN CELL VOLUME 87.4 fl (80.0-105.0); MEAN CORPUSCULAR HGB CONC 34.4 g/dl (31.0-37.0); MONO % 8.1 % (1.0-6.0); RED CELL DISTRIBUTION WIDTH 13.4 % (11.5-14.5); WHITE BLOOD COUNT 12.5 10^3/ul (4.5-11.0)
[2017-05-07 11:47] LABS: ALB/GLOB RATIO 1.1 (1.1-1.8); BILIRUBIN,TOTAL 0.3 mg/dL (0.2-1.3); CALCIUM 8.7 mg/dL (8.4-10.5); PHOSPHOROUS 5.3 mg/dL (2.5-4.5); POTASSIUM 4.8 mmol/L (3.6-5.0); TOTAL PROTEIN 6.2 g/dL (5.8-8.3)
[2017-05-07] MEDS ORDERED: Darbepoetin Alfa 25 mcg/ml Inj SC SCH (12:22)
--- NOTE | 2017-05-07 12:25 | CP.PCM.PN ---
Subjective - Date & Time of Evaluation Date of Evaluation: 05/07/17 Time of Evaluation: 12:22 - Subjective Subjective: 86 yo F w/ htn, dm, CKD V, dementia, admitted with lethargy, hospital course complicated by delirium; Patient reportedly eating well; is continent and wanting to urinated in bathroom ; Objective - Vital Signs/Intake and Output Vital Signs (last 24 hours): Temp Pulse Resp BP Pulse Ox 98.2 F 70 18 137/70 98 05/07/17 07:00 05/07/17 07:00 05/07/17 07:00 05/07/17 10:12 05/07/17 07:00 - Medications Medications: Current Medications Acetaminophen (Tylenol 325mg Tab) 650 mg PO Q4H PRN PRN Reason: Fever >100.5 F Albuterol/Ipratropium (Duoneb 3 Mg/0.5 Mg (3 Ml) Ud) 3 ml IH [id number] PRN PRN Reason: Sore Throat Amlodipine Besylate (Norvasc) 10 mg PO DAILY [facility] Last Admin: 05/07/17 10:09 Dose: 10 mg Aspirin (Aspirin Chewable) 81 mg PO DAILY [facility] Last Admin: 05/07/17 10:11 Dose: 81 mg Atorvastatin Calcium (Lipitor) 20 mg PO DIN [facility] Last Admin: 05/06/17 17:00 Dose: 20 mg Bisacodyl (Dulcolax) 10 mg RC DAILY [facility] Last Admin: 05/06/17 10:53 Dose: 10 mg Carvedilol (Coreg) 12.5 mg PO Q12 [facility] Last Admin: 05/07/17 10:12 Dose: 12.5 mg Docusate Sodium (Colace) 200 mg PO DAILY [facility] Last Admin: 05/07/17 10:11 Dose: 200 mg Furosemide (Lasix) 20 mg PO QOTHERDAY [facility] Hydralazine HCl (Apresoline) 50 mg PO Q8H [facility] Last Admin: 05/07/17 06:33 Dose: 50 mg Insulin Detemir (Levemir) 10 unit SC Q12 [facility] Last Admin: 05/07/17 10:11 Dose: 10 unit Insulin Human Regular (Humulin R Low) 0 units SC ACHS NLALELY PRN Reason: Protocol Last Admin: 05/07/17 08:34 Dose: Not Given Lorazepam (Ativan) 0.25 mg IVP BID PRN; Protocol PRN Reason: Agitation Last Admin: 05/06/17 17:53 Dose: 0.25 mg Magnesium Hydroxide (Milk Of Magnesia) 30 ml PO DAILY PRN PRN Reason: Constipation Last Admin: 05/01/17 17:15 Dose: 30 ml Memantine (Namenda) 10 mg PO DAILY [facility] Last Admin: 05/07/17 10:11 Dose: 10 mg Montelukast Sodium (Singulair) 10 mg PO HS [facility] Last Admin: 05/06/17 21:49 Dose: 10 mg Quetiapine Fumarate (Seroquel) 12.5 mg PO HS PRN; Protocol PRN Reason: Agitation Last Admin: 05/06/17 21:49 Dose: 12.5 mg Senna/Docusate Sodium (Senokot S 50 Mg-8.6 Mg) 2 tab PO HS PRN PRN Reason: Constipation Last Admin: 05/06/17 17:00 Dose: 2 tab Vitamin B Complex/Vit C/Folic Acid (Nephro-Ester) 1 tab PO 0800 [facility] Last Admin: 05/07/17 10:14 Dose: 1 tab Vitamin D (Vitamin D 400 Intl Units Tab) 400 intlu PO BID [facility] Last Admin: 05/07/17 10:09 Dose: 400 intlu - Labs Labs: 05/07/17 11:15 05/07/17 11:15 PT 11.0 Seconds (9.9-11.8) 04/30/17 00:30 INR 1.02 (0.93-1.08) 04/30/17 00:30 APTT 24.5 Seconds (23.7-30.8) 04/30/17 00:30 - Constitutional Appears: Non-toxic, No Acute Distress - Head Exam Head Exam: NORMAL INSPECTION - Eye Exam Eye Exam: Normal appearance. absent: Scleral icterus - ENT Exam ENT Exam: Mucous Membranes Moist - Respiratory Exam Respiratory Exam: absent: Rales, Rhonchi, Wheezes, Respiratory Distress Additional comments: decreased insp effort; - Cardiovascular Exam Cardiovascular Exam: REGULAR RHYTHM, +S1, +S2 - GI/Abdominal Exam GI & Abdominal Exam: Distended, Soft - Exam Exam: Bladder Distension - Extremities Exam Additional comments: no leg edema; - Neurological Exam Neurological Exam: Alert, Awake - Psychiatric Exam Psychiatric exam: absent: Agitated - Skin Skin Exam: Warm. 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 ml/min Assessment & Plan: Mild worsening of renal function in the setting of tighter BP control and mild diuretics; will change lasix PO 20 mg to every other day; Status: Chronic (2) Anemia Assessment & Plan: Due to advanced CKD; starting aranesp 25 mcg weekly from today; Status: Chronic (3) Hypertensive CKD (chronic kidney disease) Assessment & Plan: BP difficult to control; now on 4 meds and may be too tightly controlled; decreasing lasix frequency as above; may need to decrease hydralazine to 25 mg, will observe for now; Status: Acute (4) Chronic kidney disease-mineral and bone disorder Assessment & Plan: Phos mildly elevated, if increases further, start phoslo 1 tab w/ meals; Status: Chronic (5) Urinary retention Assessment & Plan: Appears to wait too long before passing urine; need to avoid any meds that may cause retention; Status: Chronic
--- NOTE | 2017-05-07 12:58 | PN ---
DATE: SUBJECTIVE: The patient has no complaints of any chest pain or shortness of breath. No headache. PHYSICAL EXAMINATION: VITAL SIGNS: Temperature is 98.2, pulse is 70, blood pressure is 135/68, and respirations 18. GENERAL: The patient is lying in bed, flat, and comfortable. HEENT: No oral lesion. Anicteric sclerae. Moist mucosa. NECK: No JVD, adenopathy, or thyromegaly. CARDIOVASCULAR: S1 and S2, regular. No murmurs, rubs, or gallops. LUNGS: Clear to auscultation bilaterally. No wheeze, rales, or rhonchi. ABDOMEN: Bowel sounds are positive, soft, nontender, and nondistended. EXTREMITIES: No cyanosis, clubbing, or edema. LABORATORY DATA: White count of 12.5 and hemoglobin 8.8. Creatinine is 4.5. ASSESSMENT: 1. Chronic kidney disease stage V. 2. Hypertension. 3. Secondary hyperparathyroidism. 4. Anemia. 5. Constipation. 6. Diabetes type 2. 7. Dyslipidemia. PLAN: The patient is currently comfortable. She is going to continue with Levemir for her diabetes. The patient's creatinine is 4.5. She is going to continue with Carvedilol. She is going to be on aspirin daily. She is on Lasix. The patient is going to be on Namenda and Aricept for her dementia. She is going to continue with Norvasc for her hypertension. The patient has had a one-to-one sitter. Immunofixation is pending. Serum immunofixation has been negative. Stiven Byrd MD
--- NOTE | 2017-05-07 19:46 | PN ---
DATE: 05/07/2017 PULMONARY PROGRESS NOTE REFERRING PHYSICIAN: Dr. Son. SUBJECTIVE: She is out of bed to chair. Daughter at the bedside trying to take her to ladies room to use the toilet. She is much more awake and alert. Follow simple command. Still confused. PHYSICAL EXAMINATION: GENERAL: In no acute distress. VITAL SIGNS: Temperature is 98, heart rate 77, respiratory rate is 18, blood pressure 141/81, pulse ox 97% on room air. HEENT: Moist mucous membrane. Crowded airway. NECK: Supple. No JVD. LUNGS: Has a fair airflow with rhonchi. HEART: S1 and S2. ABDOMEN: Soft and nontender. No organomegaly.. EXTREMITIES: No edema. NEUROLOGIC: Awake and alert. Follow simple command, but confused. MEDICATIONS: She is on hydralazine 50 mg q.8h., Aranesp 25 mcg weekly, aspirin 81 mg daily, Ativan 0.25 mg q.12h. p.r.n., Colace 200 mg daily, Coreg 12.5 mg q.12h., Dulcolax 10 mg rectally daily, DuoNeb q.6h. p.r.n., insulin coverage, Lasix 20 mg and Monday, Levemir 10 units subcutaneous q.12h., Lipitor 20 mg daily, milk of magnesia p.r.n. basis, Namenda 10 mg daily, Nephro vitamins daily, Norvasc 10 mg daily, Senokot p.r.n. basis, Seroquel 12.5 mg bedtime, Singulair 10 mg daily, Tylenol p.r.n., vitamin D 400 international unit daily. LABORATORY DATA: Laboratory data shows hemoglobin 8.8, hematocrit 25.6, WBC 12.5, platelet count is 201. Sodium 137, potassium 4.8, chloride 104, bicarbonate 24, BUN 78, creatinine 4.5, glucose 247, calcium is 8.7, phosphorus 5.3, magnesium 2.0, AST 26, ALT 24, alkaline phosphatase is 49, and albumin is 3.3. IMPRESSION AND PLAN: Renal failure, hyperglycemia, acute bronchitis, oropharyngeal dysphagia on modified diet, constipation, anxiety disorder. Pulmonary point of view, she is doing okay. Keep head elevated at 45 degree. Aspiration precaution. Gastric prophylaxis. DVT prophylaxis. Stool softener. Fall precaution. Spoke to the patient's daughter at the bedside. All the questions answered. Thank you and we will follow with you. Austin Hurst MD
[2017-05-08] MEDS: Cholecalciferol 400 Intl Units Tab PO SCH ×2 (10:02→17:53)
[2017-05-08] MEDS: Insulin Reg-LOW-Coverage SC SCH ×4 (10:08→21:49)
[2017-05-08] MEDS: Insulin Detemir 100 units/ml Vial (Levemir) SC SCH ×2 (10:09→21:48)
[2017-05-08] MEDS: Magnesium Hydroxide Susp 30 ml UD PO PRN (10:12)
[2017-05-08] MEDS: Multivitamin Vitamin B Complex (Nephro-Vite) Tab PO SCH (10:13)
--- NOTE | 2017-05-08 12:18 | CP.PCM.PN ---
<Clif Bain - Last Filed: 05/08/17 12:15> Subjective - Date & Time of Evaluation Date of Evaluation: 05/08/17 Time of Evaluation: 10:15 - Subjective Subjective: 86 year old female seen bedside for right foot ulceration at MTPJ head. Patient is sleeping in bed resting comfortably. No overnight events per nursing. Patient on a 07/17 at the time of visit due to safety precautions. Patient's daughter present in room at time of visit Objective - Vital Signs/Intake and Output Vital Signs (last 24 hours): Temp Pulse Resp BP Pulse Ox 97.9 F 63 16 150/74 100 05/08/17 00:00 05/08/17 00:00 05/08/17 00:00 05/08/17 10:13 05/08/17 00:00 - Medications Medications: Current Medications Acetaminophen (Tylenol 325mg Tab) 650 mg PO Q4H PRN PRN Reason: Fever >100.5 F Albuterol/Ipratropium (Duoneb 3 Mg/0.5 Mg (3 Ml) Ud) 3 ml IH [id number] PRN PRN Reason: Sore Throat Amlodipine Besylate (Norvasc) 10 mg PO DAILY [facility] Last Admin: 05/08/17 10:13 Dose: 10 mg Aspirin (Aspirin Chewable) 81 mg PO DAILY [facility] Last Admin: 05/08/17 10:02 Dose: 81 mg Atorvastatin Calcium (Lipitor) 20 mg PO DIN [facility] Last Admin: 05/07/17 17:49 Dose: 20 mg Bisacodyl (Dulcolax) 10 mg RC DAILY [facility] Last Admin: 05/08/17 10:08 Dose: 10 mg Carvedilol (Coreg) 12.5 mg PO Q12 [facility] Last Admin: 05/08/17 10:02 Dose: 12.5 mg Darbepoetin Sadi (Aranesp) 25 mcg SC SUN [facility] Last Admin: 05/07/17 17:48 Dose: 25 mcg Docusate Sodium (Colace) 200 mg PO DAILY [facility] Last Admin: 05/08/17 10:02 Dose: 200 mg Furosemide (Lasix) 20 mg PO QOTHERDAY [facility] Hydralazine HCl (Apresoline) 50 mg PO Q8H [facility] Last Admin: 05/08/17 07:02 Dose: Not Given Insulin Detemir (Levemir) 10 unit SC Q12 [facility] Last Admin: 05/08/17 10:09 Dose: 10 unit Insulin Human Regular (Humulin R Low) 0 units SC ACHS NALLELY PRN Reason: Protocol Last Admin: 05/08/17 10:08 Dose: 1 units Lorazepam (Ativan) 0.25 mg IVP BID PRN; Protocol PRN Reason: Agitation Last Admin: 05/07/17 19:42 Dose: 0.25 mg Magnesium Hydroxide (Milk Of Magnesia) 30 ml PO DAILY PRN PRN Reason: Constipation Last Admin: 05/08/17 10:12 Dose: 30 ml Memantine (Namenda) 10 mg PO DAILY [facility] Last Admin: 05/08/17 10:09 Dose: 10 mg Montelukast Sodium (Singulair) 10 mg PO HS [facility] Last Admin: 05/07/17 21:42 Dose: 10 mg Quetiapine Fumarate (Seroquel) 12.5 mg PO HS PRN; Protocol PRN Reason: Agitation Last Admin: 05/07/17 21:42 Dose: 12.5 mg Senna/Docusate Sodium (Senokot S 50 Mg-8.6 Mg) 2 tab PO HS PRN PRN Reason: Constipation Last Admin: 05/06/17 17:00 Dose: 2 tab Vitamin B Complex/Vit C/Folic Acid (Nephro-Ester) 1 tab PO 0800 [facility] Last Admin: 05/08/17 10:13 Dose: 1 tab Vitamin D (Vitamin D 400 Intl Units Tab) 400 intlu PO BID [facility] Last Admin: 05/08/17 10:02 Dose: 400 intlu - Labs Labs: 05/07/17 11:15 05/07/17 11:15 PT 11.0 Seconds (9.9-11.8) 04/30/17 00:30 INR 1.02 (0.93-1.08) 04/30/17 00:30 APTT 24.5 Seconds (23.7-30.8) 04/30/17 00:30 - Constitutional Appears: Well, Non-toxic, No Acute Distress - Extremities Exam Additional comments: LE focused exam: VASC: DP and PT 2/4 bilaterally, temperature warm to cool from proximal to distal, digital hair noted, CFT <3 seconds x10 digits, edema noted bilaterally Ortho: unable to obtain due to patient's dementia Neuro: unable to obtain due to patient's dementia Derm: Left: closed, healed wound noted to first MTPJ head. No clinical signs of infection noted Right: ulceration noted to the medial aspect of 1st metatarsal head noted to be completely scabbed over and almost healed at this time. No erythema or ascending cellulitis, no tunneling, no undermining, no fluctuance or absecess noted. No clinical signs of infection noted. - Neurological Exam Neurological Exam: Alert, Awake, Oriented x3 - Psychiatric Exam Psychiatric exam: Normal Affect, Normal Mood Assessment and Plan - Assessment and Plan (Free Text) Assessment: 86 year old female with PMHx of Alzheimers, DM, HTN, hyperlipidema, anemia, and osteoporosis was seen at bedside for ulceration at medial aspect of right 1st MPJ, stable Plan: Patient seen and evaluated at bedside discussed with attending Dr. Joseph Charts, labs and vitals reviewed; afebrile Foot xray results 05/01: Normal radiograph of feet Optifoam applied to ulceration of right foot Podiatry will continue to follow while in house <Nathaniel Joseph - Last Filed: 05/08/17 17:16> Objective - Vital Signs/Intake and Output Vital Signs (last 24 hours): Temp Pulse Resp BP Pulse Ox 99.2 F 78 16 141/84 96 05/08/17 16:00 05/08/17 16:00 05/08/17 16:00 05/08/17 16:00 05/08/17 16:00 Intake and Output: 05/08/17 05/08/17 06:59 18:59 Intake Total 1020 Balance 1020 - Medications Medications: Current Medications Acetaminophen (Tylenol 325mg Tab) 650 mg PO Q4H PRN PRN Reason: Fever >100.5 F Albuterol/Ipratropium (Duoneb 3 Mg/0.5 Mg (3 Ml) Ud) 3 ml IH [id number] PRN PRN Reason: Sore Throat Amlodipine Besylate (Norvasc) 10 mg PO DAILY [facility] Last Admin: 05/08/17 10:13 Dose: 10 mg Aspirin (Aspirin Chewable) 81 mg PO DAILY [facility] Last Admin: 05/08/17 10:02 Dose: 81 mg Atorvastatin Calcium (Lipitor) 20 mg PO DIN [facility] Last Admin: 05/07/17 17:49 Dose: 20 mg Bisacodyl (Dulcolax) 10 mg RC DAILY [facility] Last Admin: 05/08/17 10:08 Dose: 10 mg Carvedilol (Coreg) 12.5 mg PO Q12 [facility] Last Admin: 05/08/17 10:02 Dose: 12.5 mg Darbepoetin Sadi (Aranesp) 25 mcg SC SUN [facility] Last Admin: 05/07/17 17:48 Dose: 25 mcg Docusate Sodium (Colace) 200 mg PO DAILY [facility] Last Admin: 05/08/17 10:02 Dose: 200 mg Furosemide (Lasix) 20 mg PO QOTHERDAY [facility] Hydralazine HCl (Apresoline) 50 mg PO Q8H [facility] Last Admin: 05/08/17 13:09 Dose: 50 mg Insulin Detemir (Levemir) 10 unit SC Q12 [facility] Last Admin: 05/08/17 10:09 Dose: 10 unit Insulin Human Regular (Humulin R Low) 0 units SC [facility] PRN Reason: Protocol Last Admin: 05/08/17 13:09 Dose: 4 units Lorazepam (Ativan) 0.25 mg IVP BID PRN; Protocol PRN Reason: Agitation Last Admin: 05/07/17 19:42 Dose: 0.25 mg Magnesium Hydroxide (Milk Of Magnesia) 30 ml PO DAILY PRN PRN Reason: Constipation Last Admin: 05/08/17 10:12 Dose: 30 ml Memantine (Namenda) 10 mg PO DAILY [facility] Last Admin: 05/08/17 10:09 Dose: 10 mg Montelukast Sodium (Singulair) 10 mg PO HS [facility] Last Admin: 05/07/17 21:42 Dose: 10 mg Quetiapine Fumarate (Seroquel) 12.5 mg PO HS [facility] PRN Reason: Protocol Senna/Docusate Sodium (Senokot S 50 Mg-8.6 Mg) 2 tab PO HS PRN PRN Reason: Constipation Last Admin: 05/06/17 17:00 Dose: 2 tab Vitamin B Complex/Vit C/Folic Acid (Nephro-Ester) 1 tab PO 0800 [facility] Last Admin: 05/08/17 10:13 Dose: 1 tab Vitamin D (Vitamin D 400 Intl Units Tab) 400 intlu PO BID [facility] Last Admin: 05/08/17 10:02 Dose: 400 intlu - Labs Labs: 05/07/17 11:15 05/07/17 11:15 PT 11.0 Seconds (9.9-11.8) 04/30/17 00:30 INR 1.02 (0.93-1.08) 04/30/17 00:30 APTT 24.5 Seconds (23.7-30.8) 04/30/17 00:30 Attending/Attestation - Attestation I have personally seen and examined this patient.: Yes I have fully participated in the care of the patient.: Yes I have reviewed all pertinent clinical information, including history, physical exam and plan: Yes
--- NOTE | 2017-05-08 18:49 | PN ---
PULMONARY PROGRESS NOTE DATE: 05/08/2017 SUBJECTIVE: She is lying in the bed, sleepy, arousable, under one-to-one supervision. According to sitter, she has done very well today, ate well, went to the bathroom for defecation. She is unstable on her feet. No cough, no sputum production, no nausea, no leg swelling. PHYSICAL EXAMINATION GENERAL: In no acute distress. VITAL SIGNS: Temperature is 98, heart rate is 63, respiratory rate is 16, blood pressure 150/74, pulse ox 100% on room air. HEENT: Moist mucous membranes. No oral thrush noted. NECK: Supple. No JVD. LUNGS: Fair airflow with few rhonchi. HEART: S1 and S2. ABDOMEN: Soft, nontender. No organomegaly. EXTREMITIES: No edema. NEUROLOGIC: Sleepy, arousable, follows simple commands, but confused about. MEDICATIONS: She is on hydralazine 50 mg q. 8 hours, Aranesp 25 mcg weekly, aspirin 81 mg daily, Ativan 0.25 mg twice a day, Colace 200 mg daily, Coreg 12.5 mg twice a day, Dulcolax 10 mg rectally, DuoNeb q. 6 hour p.r.n., insulin coverage, Lasix 20 mg twice a day, Levemir 10 units q. 12 hour, Lipitor 20 mg daily, milk of magnesia p.r.n. basis, Namenda 10 mg daily, multivitamins, Aspirin, Norvasc 10 mg daily, Senokot p.r.n. basis, Seroquel 12.5 mg bedtime, Singulair 10 mg daily, vitamin D 400 international unit twice a day. LABORATORY DATA: Showed blood sugar this morning is 286. IMPRESSION AND PLAN: Renal failure, hyperglycemia, acute bronchitis, oropharyngeal dysphagia, modified diet, constipation, anxiety disorder, dementia, confused. Clinically, she is doing much better. Keep head at 45 degrees, aspiration precaution, p.r.n. bronchodilators. Gastric prophylaxis and deep venous thrombosis prophylaxis. Once cleared by Licensed Staff Mft and safe to discharge, may discharge, but fall precaution. Thank you and we will follow. Austin Hurst MD
--- NOTE | 2017-05-09 00:19 | PN ---
DATE: SUBJECTIVE: Shortly, the patient is an 86-year-old female, multiple medical issues as well as dementia. The patient was admitted to the medical site for delirium stage. Also, the patient had renal failure, hyperglycemia, acute bronchitis, oropharyngeal dysphagia. Psych consult was called for evaluation of agitated and restless behavior. This assembly instructions writer discontinued 0.5 mg of Risperdal daily because majority of the time, the patient was agitated and restless during the nighttime and Seroquel 12.5 mg at the nighttime was started. This assembly instructions writer received threatening calls from the patient's family saying that in case something will happen to the patient, this assembly instructions writer will be the first who will be sued. This assembly instructions writer had prolonged conversation with the patient's daughtersHanh last . This assembly instructions writer explained in details rationale behind of decision to discontinue Risperdal and start Seroquel at the nighttime. By the end of the conversation, the patient's daughter, Hanh seems to be much calmer and was in agreement with our plan. This assembly instructions writer educated Hanh about risks, benefits, and alternatives of that medication. Going back to the patient, this assembly instructions writer evaluated the patient today at the morning time. The patient presented to be very well, as per one-to-one. The patient ate 100% of her meal at times. The patient is able to ambulate with 1 financial legal assistant. The patient family is very involved into the patient's care. The patient reported that she feels better. When this assembly instructions writer asked about her mood, the patient said "I feel bored. Sometimes, I feel sad. Sometimes, I feel happy." The patient denied any thoughts of harming herself or others, the patient denied feeling anxious, the patient's questions were answered. As per one-to-one, the patient presented better, has periods of restless behavior majority of the time the nighttime. This assembly instructions writer reviewed vital signs, seems to be stable. Temperature 97.9, pulse 63, blood pressure 150/74, respirations 16, oxygen saturation is 100. MEDICATIONS: Reviewed. The patient is on Tylenol, DuoNeb, Norvasc, aspirin, Lipitor, Dulcolax, Coreg, Colace, Lasix, hydralazine, Levemir insulin, lorazepam 0.25 mg IV push q. 12 hours as needed. The patient is on Namenda, Singulair. Seroquel will be given as scheduled dose at the nighttime, vitamin D and vitamin B. Also, the patient is on senna/docusate. LABORATORY DATA: Reviewed. WBC cells 12.5, hemoglobin 8.8, hematocrit 25.6. Chemistry also reviewed. The patient's sugar level is 308. The rest seems to be improving. Urinalysis showed total protein 4214. Immunology also reviewed. Serology also reviewed. MENTAL STATUS EXAM: The patient presented to have improved personal hygiene, was observed sitting out of bed. The patient was pleasant and cooperative but does not know where she is. The patient was educated that she is in the hospital. Intermittent eye contact. Speech was underproductive. There are no signs of agitation or aggression. Mood described "Sometimes I feel sad, sometimes I feel happy." Affect was reactive, mood congruent. Thought process, seems to be confabulating. Thought content, the patient denied thoughts of harming herself or others. Denied intent or plan. The patient does not present to be psychotic. Insight and judgment are limited due to Alzheimer's dementia. Impulses are better controlled. IMPRESSION: Most likely, the patient has delirium stage which is related to the multiple medical issues. Please see medical team notes for more detailed information. On top of that, the patient has history of advanced dementia, which could contribute to the patient's confusion. The patient also has chronic kidney disease, hypertension, secondary hyperparathyroid, anemia, constipation, diabetes and dyslipidemia. PLAN: Continue current management. Continue current medications. Seroquel 12.5 mg needs to be continued. Ativan 0.25 mg IV push twice a day as needed. Physical therapy evaluation. Family involvement. Should you have any questions, give me a call back. Thank you very much for letting me participate in the care of your patient. Ashley Harrell MD
[2017-05-09] MEDS: Insulin Reg-LOW-Coverage SC SCH ×4 (08:28→22:00)
--- NOTE | 2017-05-09 08:57 | CP.PCM.PN ---
Subjective - Date & Time of Evaluation Date of Evaluation: 05/08/17 Time of Evaluation: 18:00 - Subjective Subjective: 86 yo F w/ htn, dm, CKD V, dementia, admitted with lethargy, hospital course complicated by delirium; Per nurse aide, patient has not been agitated during her shift, tolerating diet well, ambulating to bathroom with assistance; Objective - Vital Signs/Intake and Output Vital Signs (last 24 hours): Temp Pulse Resp BP Pulse Ox 97.7 F 69 20 164/75 H 97 05/09/17 07:30 05/09/17 07:30 05/09/17 07:30 05/09/17 07:30 05/09/17 07:30 Intake and Output: 05/09/17 05/09/17 06:59 18:59 Intake Total 660 Balance 660 - Medications Medications: Current Medications Acetaminophen (Tylenol 325mg Tab) 650 mg PO Q4H PRN PRN Reason: Fever >100.5 F Albuterol/Ipratropium (Duoneb 3 Mg/0.5 Mg (3 Ml) Ud) 3 ml IH [id number] PRN PRN Reason: Sore Throat Amlodipine Besylate (Norvasc) 10 mg PO DAILY [facility] Last Admin: 05/08/17 10:13 Dose: 10 mg Aspirin (Aspirin Chewable) 81 mg PO DAILY [facility] Last Admin: 05/08/17 10:02 Dose: 81 mg Atorvastatin Calcium (Lipitor) 20 mg PO DIN [facility] Last Admin: 05/08/17 17:53 Dose: 20 mg Bisacodyl (Dulcolax) 10 mg RC DAILY [facility] Last Admin: 05/08/17 10:08 Dose: 10 mg Carvedilol (Coreg) 12.5 mg PO Q12 [facility] Last Admin: 05/08/17 21:48 Dose: 12.5 mg Darbepoetin Sadi (Aranesp) 25 mcg SC SUN [facility] Last Admin: 05/07/17 17:48 Dose: 25 mcg Docusate Sodium (Colace) 200 mg PO DAILY [facility] Last Admin: 05/08/17 10:02 Dose: 200 mg Furosemide (Lasix) 20 mg PO QOTHERDAY [facility] Hydralazine HCl (Apresoline) 50 mg PO Q8H [facility] Last Admin: 05/09/17 05:30 Dose: Not Given Insulin Detemir (Levemir) 10 unit SC Q12 [facility] Last Admin: 05/08/17 21:48 Dose: 10 unit Insulin Human Regular (Humulin R Low) 0 units SC ACHS [facility] PRN Reason: Protocol Last Admin: 05/09/17 08:28 Dose: Not Given Lorazepam (Ativan) 0.25 mg IVP BID PRN; Protocol PRN Reason: Agitation Last Admin: 05/08/17 21:54 Dose: 0.25 mg Magnesium Hydroxide (Milk Of Magnesia) 30 ml PO DAILY PRN PRN Reason: Constipation Last Admin: 05/08/17 10:12 Dose: 30 ml Memantine (Namenda) 10 mg PO DAILY [facility] Last Admin: 05/08/17 10:09 Dose: 10 mg Montelukast Sodium (Singulair) 10 mg PO HS [facility] Last Admin: 05/08/17 21:48 Dose: 10 mg Quetiapine Fumarate (Seroquel) 12.5 mg PO HS [facility] PRN Reason: Protocol Last Admin: 05/08/17 21:48 Dose: 12.5 mg Senna/Docusate Sodium (Senokot S 50 Mg-8.6 Mg) 2 tab PO HS PRN PRN Reason: Constipation Last Admin: 05/06/17 17:00 Dose: 2 tab Vitamin B Complex/Vit C/Folic Acid (Nephro-Ester) 1 tab PO 0800 [facility] Last Admin: 05/08/17 10:13 Dose: 1 tab Vitamin D (Vitamin D 400 Intl Units Tab) 400 intlu PO BID [facility] Last Admin: 05/08/17 17:53 Dose: 400 intlu - Labs Labs: 05/07/17 11:15 05/07/17 11:15 PT 11.0 Seconds (9.9-11.8) 04/30/17 00:30 INR 1.02 (0.93-1.08) 04/30/17 00:30 APTT 24.5 Seconds (23.7-30.8) 04/30/17 00:30 - Constitutional Appears: Non-toxic, No Acute Distress - Head Exam Head Exam: NORMAL INSPECTION - Eye Exam Eye Exam: Normal appearance - ENT Exam ENT Exam: Mucous Membranes Moist - Respiratory Exam Respiratory Exam: absent: Respiratory Distress Additional comments: bilateral rales present, no wheezes/rhonchi; - Cardiovascular Exam Cardiovascular Exam: RRR, +S1, +S2 - GI/Abdominal Exam GI & Abdominal Exam: Soft. absent: Distended, Tenderness - Extremities Exam Additional comments: no leg edema; - Neurological Exam Neurological Exam: Alert, Awake - Psychiatric Exam Psychiatric exam: Normal Mood. absent: Agitated - Skin Skin Exam: Warm. 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 ml/min Assessment & Plan: Overall stable renal function during current admission, mild fluctuations in serum creat likely hemodynamically mediated; lasix changed to every other day, will monitor labs periodically; Status: Chronic (2) Anemia Assessment & Plan: Due to advanced CKD; aranesp 25 mcg given yesterday, can take several weeks to see effect, should continue every other week as outpatient; Status: Chronic (3) Hypertensive CKD (chronic kidney disease) Assessment & Plan: BP relatively controlled on current regimen, continue same; BP may increase after aranesp dose; Status: Acute (4) Chronic kidney disease-mineral and bone disorder Assessment & Plan: Phos mildly elevated, will monitor for now; if increases > 5.5, start phoslo 1 tab w/ meals; Status: Chronic (5) Urinary retention Status: Resolved
[2017-05-09] MEDS: Cholecalciferol 400 Intl Units Tab PO SCH ×2 (09:47→17:00)
[2017-05-09] MEDS: Multivitamin Vitamin B Complex (Nephro-Vite) Tab PO SCH (09:50)
[2017-05-09] MEDS: Insulin Detemir 100 units/ml Vial (Levemir) SC SCH ×2 (09:51→22:30)
--- NOTE | 2017-05-09 10:22 | PN ---
DATE: 05/08/2017 SUBJECTIVE: The patient is an 86-year-old female. The patient is seen and examined at the bedside, looking comfortable, still having one-to-one, doing better. The patient is unstable on her feet and needs physical therapy. Cough is better. No sputum production. No hematuria. No hematochezia. No fever. No chills. PHYSICAL EXAMINATION: VITAL SIGNS: Temperature 98.6, heart rate 60, respiratory rate 20, blood pressure 150/70, pulse oxymetry 100% on room air. HEENT: Head, normocephalic, atraumatic. Eyes, PERRLA. Extraocular muscles intact. Conjunctivae clear. Nose patent. Mucous membrane moist. NECK: Supple. No carotid bruits. No JVD or thyromegaly. CHEST: Bilaterally symmetrical. HEART: S1 and S2 positive. LUNGS: Clear to auscultation. ABDOMEN: Soft. Bowel sounds positive. No organomegaly. EXTREMITIES: No edema. No cyanosis. NEUROLOGIC: The patient is awake and alert. Moving all 4 extremities. No focal deficits, but still is confused. MEDICATIONS: Hydralazine, Aranesp, Ativan, Colace, Coreg, Dulcolax, DuoNeb, insulin coverage, Lasix, Levemir, Lipitor, milk of magnesia, Namenda, multivitamins, aspirin, Norvasc, Senokot, Seroquel, Singulair, and vitamin D. LABORATORY DATA: We do not have recent lab today, but I reviewed old labs. Sugar is 286. ASSESSMENT AND PLAN: Vianey Larose The patient is an 86-year-old lady with multiple medical problems, advanced dementia; renal insufficiency, Fitness Studies Teacher is on the case; hyperglycemia, uncontrolled diabetes mellitus, acute bronchitis; oropharyngeal dysphagia, getting modified diet; constipation, anxiety, getting episodes of confusion. Keep head elevated, Physical Therapy, out of bed. Gastric and deep vein thrombosis prophylaxis. Foot ulcer is getting better. Review Dr. Hurst and Dr. Joseph's notes and Dr. Stiven Byrd notes. Aniket Holcomb is the patient's Fitness Studies Teacher. We will follow up. Jaqui Adelaida, MD
--- NOTE | 2017-05-09 10:38 | CP.PCM.PN ---
<Clif Bain - Last Filed: 05/09/17 10:39> Subjective - Date & Time of Evaluation Date of Evaluation: 05/09/17 Time of Evaluation: 10:36 - Subjective Subjective: 86 year old female seen bedside for right foot ulceration at MTPJ head. Patient is resting in bed. No overnight events per nursing. Patient on a 07/17 at the time of visit due to safety precautions. No multipodus boots noted to patient's feet Objective - Vital Signs/Intake and Output Vital Signs (last 24 hours): Temp Pulse Resp BP Pulse Ox 97.7 F 63 20 127/50 L 97 05/09/17 07:30 05/09/17 09:48 05/09/17 07:30 05/09/17 09:48 05/09/17 07:30 Intake and Output: 05/09/17 05/09/17 06:59 18:59 Intake Total 660 Balance 660 - Medications Medications: Current Medications Acetaminophen (Tylenol 325mg Tab) 650 mg PO Q4H PRN PRN Reason: Fever >100.5 F Albuterol/Ipratropium (Duoneb 3 Mg/0.5 Mg (3 Ml) Ud) 3 ml IH [id number] PRN PRN Reason: Sore Throat Amlodipine Besylate (Norvasc) 10 mg PO DAILY [facility] Last Admin: 05/09/17 09:48 Dose: Not Given Aspirin (Aspirin Chewable) 81 mg PO DAILY [facility] Last Admin: 05/09/17 09:47 Dose: 81 mg Atorvastatin Calcium (Lipitor) 20 mg PO DIN [facility] Last Admin: 05/08/17 17:53 Dose: 20 mg Bisacodyl (Dulcolax) 10 mg RC DAILY [facility] Last Admin: 05/09/17 09:47 Dose: 10 mg Carvedilol (Coreg) 12.5 mg PO Q12 [facility] Last Admin: 05/09/17 09:48 Dose: Not Given Darbepoetin Sadi (Aranesp) 25 mcg SC SUN [facility] Last Admin: 05/07/17 17:48 Dose: 25 mcg Docusate Sodium (Colace) 200 mg PO DAILY [facility] Last Admin: 05/09/17 09:47 Dose: 200 mg Furosemide (Lasix) 20 mg PO QOTHERDAY [facility] Last Admin: 05/09/17 09:47 Dose: 20 mg Hydralazine HCl (Apresoline) 50 mg PO Q8H [facility] Last Admin: 05/09/17 05:30 Dose: Not Given Insulin Detemir (Levemir) 10 unit SC Q12 [facility] Last Admin: 05/09/17 09:51 Dose: 10 unit Insulin Human Regular (Humulin R Low) 0 units SC ACHS [facility] PRN Reason: Protocol Last Admin: 05/09/17 08:28 Dose: Not Given Lorazepam (Ativan) 0.25 mg IVP BID PRN; Protocol PRN Reason: Agitation Last Admin: 05/08/17 21:54 Dose: 0.25 mg Magnesium Hydroxide (Milk Of Magnesia) 30 ml PO DAILY PRN PRN Reason: Constipation Last Admin: 05/08/17 10:12 Dose: 30 ml Memantine (Namenda) 10 mg PO DAILY [facility] Last Admin: 05/09/17 09:47 Dose: 10 mg Montelukast Sodium (Singulair) 10 mg PO HS [facility] Last Admin: 05/08/17 21:48 Dose: 10 mg Quetiapine Fumarate (Seroquel) 12.5 mg PO HS [facility] PRN Reason: Protocol Last Admin: 05/08/17 21:48 Dose: 12.5 mg Senna/Docusate Sodium (Senokot S 50 Mg-8.6 Mg) 2 tab PO HS PRN PRN Reason: Constipation Last Admin: 05/06/17 17:00 Dose: 2 tab Vitamin B Complex/Vit C/Folic Acid (Nephro-Ester) 1 tab PO 0800 [facility] Last Admin: 05/09/17 09:50 Dose: 1 tab Vitamin D (Vitamin D 400 Intl Units Tab) 400 intlu PO BID [facility] Last Admin: 05/09/17 09:47 Dose: 400 intlu - Labs Labs: 05/07/17 11:15 05/07/17 11:15 PT 11.0 Seconds (9.9-11.8) 04/30/17 00:30 INR 1.02 (0.93-1.08) 04/30/17 00:30 APTT 24.5 Seconds (23.7-30.8) 04/30/17 00:30 - Constitutional Appears: Well, Non-toxic, No Acute Distress - Extremities Exam Additional comments: LE focused exam: VASC: DP and PT 2/4 bilaterally, temperature warm to cool from proximal to distal, digital hair noted, CFT <3 seconds x10 digits, edema noted bilaterally Ortho: unable to obtain due to patient's dementia, no guarding noted with palpation of wound site right MTPJ Neuro: unable to obtain due to patient's dementia Derm: Left: closed, healed wound noted to first MTPJ head. No clinical signs of infection noted Right: ulceration noted to the medial aspect of 1st metatarsal head noted to be completely scabbed over and almost healed at this time. No erythema or ascending cellulitis, no tunneling, no undermining, no fluctuance or absecess noted. No clinical signs of infection noted. - Neurological Exam Neurological Exam: Alert, Awake, Oriented x3 - Psychiatric Exam Psychiatric exam: Normal Affect, Normal Mood Assessment and Plan - Assessment and Plan (Free Text) Assessment: 86 year old female with PMHx of Alzheimers, DM, HTN, hyperlipidema, anemia, and osteoporosis was seen at bedside for ulceration at medial aspect of right 1st MPJ, stable Plan: Patient seen and evaluated at bedside discussed with attending Dr. Joseph Charts, labs and vitals reviewed; afebrile Foot xray results 05/01: Normal radiograph of feet Optifoam applied to ulceration of right foot Podiatry will continue to follow while in house <Nathaniel Joseph - Last Filed: 05/09/17 13:41> Objective - Vital Signs/Intake and Output Vital Signs (last 24 hours): Temp Pulse Resp BP Pulse Ox 97.7 F 69 20 131/58 L 97 05/09/17 07:30 05/09/17 07:30 05/09/17 07:30 05/09/17 12:27 05/09/17 07:30 Intake and Output: 05/09/17 05/09/17 06:59 18:59 Intake Total 660 Balance 660 - Medications Medications: Current Medications Acetaminophen (Tylenol 325mg Tab) 650 mg PO Q4H PRN PRN Reason: Fever >100.5 F Albuterol/Ipratropium (Duoneb 3 Mg/0.5 Mg (3 Ml) Ud) 3 ml IH [id number] PRN PRN Reason: Sore Throat Amlodipine Besylate (Norvasc) 10 mg PO DAILY [facility] Last Admin: 05/09/17 12:26 Dose: 10 mg Aspirin (Aspirin Chewable) 81 mg PO DAILY [facility] Last Admin: 05/09/17 09:47 Dose: 81 mg Atorvastatin Calcium (Lipitor) 20 mg PO DIN [facility] Last Admin: 05/08/17 17:53 Dose: 20 mg Bisacodyl (Dulcolax) 10 mg RC DAILY [facility] Last Admin: 05/09/17 09:47 Dose: 10 mg Carvedilol (Coreg) 12.5 mg PO Q12 [facility] Last Admin: 05/09/17 12:27 Dose: 12.5 mg Darbepoetin Sadi (Aranesp) 25 mcg SC SUN [facility] Last Admin: 05/07/17 17:48 Dose: 25 mcg Docusate Sodium (Colace) 200 mg PO DAILY [facility] Last Admin: 05/09/17 09:47 Dose: 200 mg Furosemide (Lasix) 20 mg PO QOTHERDAY [facility] Last Admin: 05/09/17 09:47 Dose: 20 mg Hydralazine HCl (Apresoline) 50 mg PO Q8H [facility] Last Admin: 05/09/17 12:24 Dose: 50 mg Insulin Detemir (Levemir) 10 unit SC Q12 [facility] Last Admin: 05/09/17 09:51 Dose: 10 unit Insulin Human Regular (Humulin R Low) 0 units SC [facility] PRN Reason: Protocol Last Admin: 05/09/17 12:23 Dose: 3 units Lorazepam (Ativan) 0.25 mg IVP BID PRN; Protocol PRN Reason: Agitation Last Admin: 05/08/17 21:54 Dose: 0.25 mg Magnesium Hydroxide (Milk Of Magnesia) 30 ml PO DAILY PRN PRN Reason: Constipation Last Admin: 05/08/17 10:12 Dose: 30 ml Memantine (Namenda) 10 mg PO DAILY [facility] Last Admin: 05/09/17 09:47 Dose: 10 mg Montelukast Sodium (Singulair) 10 mg PO HS [facility] Last Admin: 05/08/17 21:48 Dose: 10 mg Quetiapine Fumarate (Seroquel) 12.5 mg PO HS [facility] PRN Reason: Protocol Last Admin: 05/08/17 21:48 Dose: 12.5 mg Senna/Docusate Sodium (Senokot S 50 Mg-8.6 Mg) 2 tab PO HS PRN PRN Reason: Constipation Last Admin: 05/06/17 17:00 Dose: 2 tab Vitamin B Complex/Vit C/Folic Acid (Nephro-Ester) 1 tab PO 0800 [facility] Last Admin: 05/09/17 09:50 Dose: 1 tab Vitamin D (Vitamin D 400 Intl Units Tab) 400 intlu PO BID [facility] Last Admin: 05/09/17 09:47 Dose: 400 intlu - Labs Labs: 05/07/17 11:15 05/07/17 11:15 PT 11.0 Seconds (9.9-11.8) 04/30/17 00:30 INR 1.02 (0.93-1.08) 04/30/17 00:30 APTT 24.5 Seconds (23.7-30.8) 04/30/17 00:30 Attending/Attestation - Attestation I have personally seen and examined this patient.: Yes I have fully participated in the care of the patient.: Yes I have reviewed all pertinent clinical information, including history, physical exam and plan: Yes
--- NOTE | 2017-05-09 18:45 | CP.PCM.PN ---
Subjective - Date & Time of Evaluation Date of Evaluation: 05/09/17 Time of Evaluation: 11:45 - Subjective Subjective: Patient not agitated today per nursing staff; tolerating diet; ambulating with assistance to bathroom; Objective - Vital Signs/Intake and Output Vital Signs (last 24 hours): Temp Pulse Resp BP Pulse Ox 98.4 F 90 20 188/74 H 96 05/09/17 16:30 05/09/17 16:30 05/09/17 16:30 05/09/17 16:30 05/09/17 16:30 Intake and Output: 05/09/17 05/09/17 06:59 18:59 Intake Total 660 Balance 660 - Medications Medications: Current Medications Acetaminophen (Tylenol 325mg Tab) 650 mg PO Q4H PRN PRN Reason: Fever >100.5 F Albuterol/Ipratropium (Duoneb 3 Mg/0.5 Mg (3 Ml) Ud) 3 ml IH [id number] PRN PRN Reason: Sore Throat Amlodipine Besylate (Norvasc) 10 mg PO DAILY [facility] Last Admin: 05/09/17 12:26 Dose: 10 mg Aspirin (Aspirin Chewable) 81 mg PO DAILY [facility] Last Admin: 05/09/17 09:47 Dose: 81 mg Atorvastatin Calcium (Lipitor) 20 mg PO DIN [facility] Last Admin: 05/09/17 17:00 Dose: 20 mg Bisacodyl (Dulcolax) 10 mg RC DAILY [facility] Last Admin: 05/09/17 09:47 Dose: 10 mg Carvedilol (Coreg) 12.5 mg PO Q12 [facility] Last Admin: 05/09/17 12:27 Dose: 12.5 mg Darbepoetin Sadi (Aranesp) 25 mcg SC SUN [facility] Last Admin: 05/07/17 17:48 Dose: 25 mcg Docusate Sodium (Colace) 200 mg PO DAILY [facility] Last Admin: 05/09/17 09:47 Dose: 200 mg Furosemide (Lasix) 20 mg PO QOTHERDAY [facility] Last Admin: 05/09/17 09:47 Dose: 20 mg Hydralazine HCl (Apresoline) 50 mg PO Q8H [facility] Last Admin: 05/09/17 12:24 Dose: 50 mg Insulin Detemir (Levemir) 10 unit SC Q12 [facility] Last Admin: 05/09/17 09:51 Dose: 10 unit Insulin Human Regular (Humulin R Low) 0 units SC ACHS [facility] PRN Reason: Protocol Last Admin: 05/09/17 17:00 Dose: 3 units Lorazepam (Ativan) 0.25 mg IVP BID PRN; Protocol PRN Reason: Agitation Last Admin: 05/08/17 21:54 Dose: 0.25 mg Magnesium Hydroxide (Milk Of Magnesia) 30 ml PO DAILY PRN PRN Reason: Constipation Last Admin: 05/08/17 10:12 Dose: 30 ml Memantine (Namenda) 10 mg PO DAILY [facility] Last Admin: 05/09/17 09:47 Dose: 10 mg Montelukast Sodium (Singulair) 10 mg PO HS [facility] Last Admin: 05/08/17 21:48 Dose: 10 mg Quetiapine Fumarate (Seroquel) 12.5 mg PO HS [facility] PRN Reason: Protocol Last Admin: 05/08/17 21:48 Dose: 12.5 mg Senna/Docusate Sodium (Senokot S 50 Mg-8.6 Mg) 2 tab PO HS PRN PRN Reason: Constipation Last Admin: 05/06/17 17:00 Dose: 2 tab Vitamin B Complex/Vit C/Folic Acid (Nephro-Ester) 1 tab PO 0800 [facility] Last Admin: 05/09/17 09:50 Dose: 1 tab Vitamin D (Vitamin D 400 Intl Units Tab) 400 intlu PO BID [facility] Last Admin: 05/09/17 17:00 Dose: 400 intlu - Labs Labs: 05/07/17 11:15 05/07/17 11:15 PT 11.0 Seconds (9.9-11.8) 04/30/17 00:30 INR 1.02 (0.93-1.08) 04/30/17 00:30 APTT 24.5 Seconds (23.7-30.8) 04/30/17 00:30 - Constitutional Appears: Non-toxic, No Acute Distress - Head Exam Head Exam: NORMAL INSPECTION - Eye Exam Eye Exam: Normal appearance. absent: Scleral icterus - ENT Exam ENT Exam: Mucous Membranes Moist - Respiratory Exam Respiratory Exam: absent: Respiratory Distress Additional comments: patient with low insp volumes; - Cardiovascular Exam Cardiovascular Exam: RRR, +S1, +S2 - GI/Abdominal Exam GI & Abdominal Exam: Soft. absent: Distended - Extremities Exam Additional comments: no leg edema; - Neurological Exam Neurological Exam: Alert, Awake - Psychiatric Exam Psychiatric exam: absent: Agitated - Skin Skin Exam: Warm. 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 ml/min Assessment & Plan: Secondary to DM nephropathy; stable electrolyte and volume status; hemodynamic fluctuations in serum creatinine, otherwise no plan to initiate HD anytime soon ; will monitor periodically; Status: Chronic (2) Anemia Assessment & Plan: Secondary to advanced CKD; s/p aranesp 25 mcg this week, continue every other week; effect can take several weeks but may need to increase dose/frequency to achieve hgb >10g; will repeat iron studies with next set of labs; Status: Chronic (3) Hypertensive CKD (chronic kidney disease) Assessment & Plan: BP fluctuating but mostly elevated, occasional readings with SBP in 120's-130's ; will continue current regimen; Status: Acute (4) Chronic kidney disease-mineral and bone disorder Assessment & Plan: Need to monitor PTH monthly; phos borderline high, if increases further, will start phoslo 1 tab w/ meals; Status: Chronic (5) Urinary retention Status: Resolved
--- NOTE | 2017-05-09 19:15 | PN ---
DATE: SUBJECTIVE: Shortly, the patient is an 86-year-old female with long history of Alzheimer's dementia, currently lives in the [place] [facility]. The patient was admitted for altered mental status as well as renal failure, hyperglycemia, delirium stage. Psych consult was called for agitated and restless behavior. This sba underwriter saw the patient yesterday and this sba underwriter had a prolonged conversation with the patient's daughter, Hanh, about risks, benefits and alternatives of the medication, Seroquel. Hanh was appreciative. Besides that, the patient is improving very much. At times, the patient could be confused, but there is no aggression or agitation. The patient did tolerate Seroquel better to compare with Risperdal. PHYSICAL EXAMINATION: VITAL SIGNS: Stable, 131/58, pulse is 68. MEDICATIONS: Reviewed. Norvasc, aspirin, Lipitor, Dulcolax, Coreg, hydralazine, insulin, Ativan as needed, Namenda, Singular, Seroquel 25 mg at night time, Senokot, vitamin B complex and vitamin D complex. LABORATORY DATA: Reviewed. There are no new labs for today. MENTAL STATUS EXAMINATION: The patient is sleeping deeply. is more manageable. Ate 100% meal. No aggression. No agitation. IMPRESSION: The patient's delirium stage is improving. The patient has multiple medical issues as well as Alzheimer's dementia. PLAN: Continue current management. There is no need for this sba underwriter to follow up on this patient because the patient seems to be stable and tolerating medication well. Treatment plan was discussed with the patient's daughter, Hanh. Risks, benefits and alternatives of the Seroquel was discussed with the patient's daughter, Hanh. Hanh was in agreement with that plan and discharge her. Educated Hanh about possible risk of stroke. The patient's daughter, Hanh, said "I know all of the medications could give some potential side effects." This sba underwriter will sign off. Should you have any questions give me a call back. The patient needs to be followed up with psychiatrist at the [place] [facility] within 1 week of discharge. Ashley Harrell MD
--- NOTE | 2017-05-10 00:31 | PN ---
DATE: 05/09/2017 PULMONARY PROGRESS NOTE REFERRING PHYSICIAN: Dr. Son. SUBJECTIVE: She is lying in the bed, head at 45 degrees, sleepy, arousable. Day was unremarkable under 1:1 supervision, also daughter is at bedside. She is able to walk with help to go to the bathroom, but need close attention, very compulsive. If left alone, trying to get out of the bed. No nausea. No vomiting. No diarrhea. No leg pain. No leg swelling. OBJECTIVE: GENERAL: In no acute distress. VITAL SIGNS: Temperature is 98, heart rate is 90, respiratory rate is 20, blood pressure 188/75, pulse ox 96% on room air. HEENT: Moist mucous membrane. Crowded airway. NECK: Supple. No JVD. LUNGS: Has a fair airflow with few rhonchi. HEART: S1 and S2. ABDOMEN: Soft, nontender. No organomegaly. EXTREMITIES: There is no edema. NEUROLOGIC: Sleep, arousable. Follows simple commands, but confused. LABORATORY DATA: Reviewed. Blood sugar this morning 196. MEDICATIONS: She is on hydralazine 50 mg q. 8 hours, also on Aranesp 25 mcg weekly, aspirin 81 mg daily, Ativan 0.25 mg twice a day, Colace 200 mg daily, Coreg 12.5 mg twice a day, Dulcolax p.r.n. basis, DuoNeb q. 6 hours p.r.n., insulin coverage, Lasix 20 mg 2 times a week, insulin 10 units subcutaneous twice a day, Lipitor 20 mg with dinner, milk of magnesia on p.r.n. basis, Namenda 10 mg daily, Nephro-vitamins daily, Norvasc 10 mg daily, Senokot p.r.n. basis, Seroquel 12.5 mg at bedtime, Singulair 10 mg at bedtime, Tylenol p.r.n. basis, vitamin D 400 international units twice a day. IMPRESSION AND PLAN: Renal failure, hyperglycemia, acute bronchitis, oropharyngeal dysphagia, on modified diet, anxiety disorder, dementia with agitation, spoke to the patient daughter at bedside. All the questions answered. Keep head at 45 degrees, aspiration precaution. Continue euvolemic, fall precaution. Need to make arrangement for long-term care. I will follow with you. Austin Hurst MD [facility] # [id number]
[2017-05-10] MEDS: Insulin Reg-LOW-Coverage SC SCH ×3 (07:40→17:31)
--- NOTE | 2017-05-10 08:12 | CP.PCM.PN ---
<Clif Bain - Last Filed: 05/10/17 08:05> Subjective - Date & Time of Evaluation Date of Evaluation: 05/10/17 Time of Evaluation: 08:05 - Subjective Subjective: 86 year old female seen bedside for right foot ulceration at MTPJ head. Patient is sleeping in bed. No overnight events per nursing. Patient on a 07/17 at the time of visit due to safety precautions. No multipodus boots noted to patient's feet Objective - Vital Signs/Intake and Output Vital Signs (last 24 hours): Temp Pulse Resp BP Pulse Ox 98.4 F 71 18 143/75 100 05/10/17 08:00 05/10/17 08:00 05/10/17 08:00 05/10/17 08:00 05/10/17 08:00 - Medications Medications: Current Medications Acetaminophen (Tylenol 325mg Tab) 650 mg PO Q4H PRN PRN Reason: Fever >100.5 F Albuterol/Ipratropium (Duoneb 3 Mg/0.5 Mg (3 Ml) Ud) 3 ml IH [id number] PRN PRN Reason: Sore Throat Amlodipine Besylate (Norvasc) 10 mg PO DAILY [facility], [facility] Last Admin: 05/09/17 12:26 Dose: 10 mg Aspirin (Aspirin Chewable) 81 mg PO DAILY [facility], [facility] Last Admin: 05/09/17 09:47 Dose: 81 mg Atorvastatin Calcium (Lipitor) 20 mg PO DIN [facility], [facility] Last Admin: 05/09/17 17:00 Dose: 20 mg Bisacodyl (Dulcolax) 10 mg RC DAILY [facility], [facility] Last Admin: 05/09/17 09:47 Dose: 10 mg Carvedilol (Coreg) 12.5 mg PO Q12 [facility], [facility] Last Admin: 05/09/17 22:29 Dose: 12.5 mg Darbepoetin Sadi (Aranesp) 25 mcg SC SUN [facility], [facility] Last Admin: 05/07/17 17:48 Dose: 25 mcg Docusate Sodium (Colace) 200 mg PO DAILY [facility], [facility] Last Admin: 05/09/17 09:47 Dose: 200 mg Furosemide (Lasix) 20 mg PO QOTHERDAY [facility], [facility] Last Admin: 05/09/17 09:47 Dose: 20 mg Hydralazine HCl (Apresoline) 50 mg PO Q8H [facility] Last Admin: 05/10/17 05:00 Dose: Not Given Insulin Detemir (Levemir) 10 unit SC Q12 [facility] Last Admin: 05/09/17 22:30 Dose: 10 unit Insulin Human Regular (Humulin R Low) 0 units SC ACHS NALLELY PRN Reason: Protocol Last Admin: 05/10/17 07:40 Dose: Not Given Lorazepam (Ativan) 0.25 mg IVP BID PRN; Protocol PRN Reason: Agitation Last Admin: 05/10/17 05:09 Dose: 0.25 mg Magnesium Hydroxide (Milk Of Magnesia) 30 ml PO DAILY PRN PRN Reason: Constipation Last Admin: 05/08/17 10:12 Dose: 30 ml Memantine (Namenda) 10 mg PO DAILY [facility] Last Admin: 05/09/17 09:47 Dose: 10 mg Montelukast Sodium (Singulair) 10 mg PO HS [facility] Last Admin: 05/09/17 22:00 Dose: 10 mg Quetiapine Fumarate (Seroquel) 12.5 mg PO HS [facility] PRN Reason: Protocol Last Admin: 05/09/17 22:00 Dose: 12.5 mg Senna/Docusate Sodium (Senokot S 50 Mg-8.6 Mg) 2 tab PO HS PRN PRN Reason: Constipation Last Admin: 05/06/17 17:00 Dose: 2 tab Vitamin B Complex/Vit C/Folic Acid (Nephro-Ester) 1 tab PO 0800 [facility] Last Admin: 05/09/17 09:50 Dose: 1 tab Vitamin D (Vitamin D 400 Intl Units Tab) 400 intlu PO BID [facility] Last Admin: 05/09/17 17:00 Dose: 400 intlu - Labs Labs: 05/07/17 11:15 05/07/17 11:15 PT 11.0 Seconds (9.9-11.8) 04/30/17 00:30 INR 1.02 (0.93-1.08) 04/30/17 00:30 APTT 24.5 Seconds (23.7-30.8) 04/30/17 00:30 - Constitutional Appears: Well, Non-toxic, No Acute Distress - Extremities Exam Additional comments: LE focused exam: VASC: DP and PT 2/4 bilaterally, temperature warm to cool from proximal to distal, digital hair noted, CFT <3 seconds x10 digits, edema noted bilaterally Ortho: unable to obtain because patient was sleeping, no guarding noted with palpation of wound site right MTPJ Neuro: unable to obtain because patient was sleeping Derm: Left: closed, healed wound noted to first MTPJ head. No clinical signs of infection noted Right: ulceration noted to the medial aspect of 1st metatarsal head noted to be completely scabbed over and almost healed at this time. Minimal hyperkeratotic periwound borders noted. No erythema or ascending cellulitis, no tunneling, no undermining, no fluctuance or absecess noted. No clinical signs of infection noted. - Neurological Exam Neurological Exam: Alert, Awake, Oriented x3 - Psychiatric Exam Psychiatric exam: Normal Affect, Normal Mood Assessment and Plan - Assessment and Plan (Free Text) Assessment: 86 year old female with PMHx of Alzheimers, DM, HTN, hyperlipidema, anemia, and osteoporosis was seen at bedside for ulceration at medial aspect of right 1st MPJ, stable Plan: Patient seen and evaluated at bedside discussed with attending Dr. Joseph Charts, labs and vitals reviewed; afebrile Foot xray results 05/01: Normal radiograph of feet Optifoam applied to ulceration of right foot Patient stable from podiatric standpoint Podiatry will continue to follow while in house <Nathaniel Joseph - Last Filed: 05/10/17 13:26> Objective - Vital Signs/Intake and Output Vital Signs (last 24 hours): Temp Pulse Resp BP Pulse Ox 98.4 F 71 18 188/90 H 100 05/10/17 08:00 05/10/17 08:00 05/10/17 08:00 05/10/17 12:35 05/10/17 08:00 - Medications Medications: Current Medications Acetaminophen (Tylenol 325mg Tab) 650 mg PO Q4H PRN PRN Reason: Fever >100.5 F Albuterol/Ipratropium (Duoneb 3 Mg/0.5 Mg (3 Ml) Ud) 3 ml IH [id number] PRN PRN Reason: Sore Throat Amlodipine Besylate (Norvasc) 10 mg PO DAILY [facility] Last Admin: 05/10/17 11:37 Dose: 10 mg Aspirin (Aspirin Chewable) 81 mg PO DAILY [facility] Last Admin: 05/10/17 11:36 Dose: 81 mg Atorvastatin Calcium (Lipitor) 20 mg PO DIN [facility] Last Admin: 05/09/17 17:00 Dose: 20 mg Bisacodyl (Dulcolax) 10 mg RC DAILY [facility] Last Admin: 05/10/17 12:36 Dose: Not Given Carvedilol (Coreg) 12.5 mg PO Q12 [facility] Last Admin: 05/10/17 11:36 Dose: 12.5 mg Darbepoetin Sadi (Aranesp) 25 mcg SC SUN [facility] Last Admin: 05/07/17 17:48 Dose: 25 mcg Docusate Sodium (Colace) 200 mg PO DAILY [facility] Last Admin: 05/10/17 11:36 Dose: 200 mg Furosemide (Lasix) 20 mg PO QOTHERDAY [facility] Last Admin: 05/09/17 09:47 Dose: 20 mg Hydralazine HCl (Apresoline) 50 mg PO Q8H [facility] Last Admin: 05/10/17 12:35 Dose: 50 mg Insulin Detemir (Levemir) 10 unit SC Q12 [facility] Last Admin: 05/10/17 11:37 Dose: 10 unit Insulin Human Regular (Humulin R Low) 0 units SC [facility] PRN Reason: Protocol Last Admin: 05/10/17 12:35 Dose: 1 units Lorazepam (Ativan) 0.25 mg IVP BID PRN; Protocol PRN Reason: Agitation Last Admin: 05/10/17 05:09 Dose: 0.25 mg Magnesium Hydroxide (Milk Of Magnesia) 30 ml PO DAILY PRN PRN Reason: Constipation Last Admin: 05/08/17 10:12 Dose: 30 ml Memantine (Namenda) 10 mg PO DAILY [facility] Last Admin: 05/10/17 11:37 Dose: 10 mg Montelukast Sodium (Singulair) 10 mg PO HS [facility] Last Admin: 05/09/17 22:00 Dose: 10 mg Quetiapine Fumarate (Seroquel) 12.5 mg PO HS [facility] PRN Reason: Protocol Last Admin: 05/09/17 22:00 Dose: 12.5 mg Senna/Docusate Sodium (Senokot S 50 Mg-8.6 Mg) 2 tab PO HS PRN PRN Reason: Constipation Last Admin: 05/06/17 17:00 Dose: 2 tab Vitamin B Complex/Vit C/Folic Acid (Nephro-Ester) 1 tab PO 0800 [facility] Last Admin: 05/10/17 11:37 Dose: 1 tab Vitamin D (Vitamin D 400 Intl Units Tab) 400 intlu PO BID NALLELY Last Admin: 05/10/17 11:38 Dose: 400 intlu - Labs Labs: 05/07/17 11:15 05/07/17 11:15 PT 11.0 Seconds (9.9-11.8) 04/30/17 00:30 INR 1.02 (0.93-1.08) 04/30/17 00:30 APTT 24.5 Seconds (23.7-30.8) 04/30/17 00:30 Attending/Attestation - Attestation I have personally seen and examined this patient.: Yes I have fully participated in the care of the patient.: Yes I have reviewed all pertinent clinical information, including history, physical exam and plan: Yes
[2017-05-10] MEDS: Multivitamin Vitamin B Complex (Nephro-Vite) Tab PO SCH (11:37)
[2017-05-10] MEDS: Insulin Detemir 100 units/ml Vial (Levemir) SC SCH (11:37)
[2017-05-10] MEDS: Cholecalciferol 400 Intl Units Tab PO SCH (11:38)
--- NOTE | 2017-05-10 12:29 | PN ---
DATE: 05/09/2017 SUBJECTIVE: The patient is an 86-year-old female. The patient was seen and examined at the bedside on 05/09/2017. The patient was sitting on the chair, looking comfortable. Daughter was sitting on the bedside. No nausea, vomiting or diarrhea. No hematuria or hematochezia. No swelling of the legs. No headache. No dizziness. The patient is not very good historian; most of the complaint was given by the daughter. Discussion done with the daughter, all questions answered. PHYSICAL EXAMINATION: VITAL SIGNS: Temperature 98.2, heart rate 90, respiratory rate 18, blood pressure 180/70, pulse oxymetry 96% on room air. HEENT: Head: Normocephalic and atraumatic. Eyes: PERRLA. Extraocular muscles intact. Conjunctivae clear. Nose patent. Mucous membrane moist. NECK: Supple. No carotid bruits. No JVD or thyromegaly. CHEST: Bilaterally symmetrical. HEART: S1 and S2 positive. LUNGS: Clear to auscultation. ABDOMEN: Soft. Bowel sounds positive. No organomegaly. EXTREMITIES: No edema. No cyanosis. NEUROLOGIC: The patient is awake and alert. Moving all 4 extremities. No focal deficits. Follows simple commands. Alert, but confused. LABORATORY DATA: We do not have recent lab today, but I reviewed her old labs. Blood sugar is 196. MEDICATIONS: Hydralazine, Aranesp, aspirin, Ativan, Colace, insulin coverage, Lasix, Lipitor, milk of magnesia, Namenda, natural vitamins, Norvasc, Senokot, Singulair, and vitamin D. ASSESSMENT AND PLAN: Ms. Vianey Larose, a resident at [facility], has renal failure; bessemer regulator is on the case, improving very slowly. Uncontrolled diabetes mellitus, improving. Uncontrolled hypertension, getting better. Acute bronchitis. Oropharyngeal dysphagia, on modified diet. Anxiety, advance dementia with agitation, psychiatrist is on the case. Length of time discussion done with the patient's daughter on the bedside, all questions answered. As per daughter , she does not want mother to go back to [facility] due to mismanagement. Aspiration precautions. Continue present treatment, fall precautions. We will talk to the social sciences department chair, physical therapy , and will follow. Jaqui Son MD DARIN
--- NOTE | 2017-05-10 16:22 | PN ---
DATE: 05/10/2017 PULMONARY PROGRESS NOTE REFERRING PHYSICIAN: Jaqui Son MD SUBJECTIVE: She is sleepy, arousable, under one-to-one supervision. She had her lunch. No headache. No rhinitis. No nausea, vomiting,or diarrhea. No leg pain. No leg swelling. PHYSICAL EXAMINATION: GENERAL: In no acute distress. VITAL SIGNS: Temperature is 98, heart rate 71, respiratory rate 18, blood pressure 132/57, and pulse oximetry 100% on room air. HEENT: Moist mucous membranes. Small oral cavity. Crowed airway. NECK: Supple. No JVD. LUNGS: Fair airflow with few rhonchi. HEART: S1 and S2. ABDOMEN: Soft and nontender. No organomegaly. EXTREMITIES: No edema. NEUROLOGIC: Sleepy, arousable, follows simple commands, but confused. MEDICATIONS: She is on hydralazine 50 mg q.8 hours, also on Aranesp 25 mcg weekly, aspirin 81 mg daily, Ativan 0.25 mg twice a day p.r.n., Colace 200 mg daily, Coreg 12.5 mg twice a day, Dulcolax p.r.n. basis, DuoNeb q.6 hours p.r.n., Lasix 20 mg, Levemir 10 units subcu q.12 hours, Lipitor 20 mg daily, milk of magnesia on a p.r.n. basis, Namenda 10 mg daily, Nephro vitamins daily, Norvasc 10 mg daily, Senokot on a p.r.n. basis, Seroquel 12.5 mg bedtime, Singulair 10 mg daily, Tylenol on a p.r.n. basis, and vitamin D 400 international unit twice a day. LABORATORY DATA: Shows blood sugar this morning is 437. IMPRESSION AND PLAN: Renal failure, hyperglycemia, acute bronchitis, oropharyngeal dysphagia, modified diet, anxiety disorder, dementia, and agitation. I spoke to her sitter at the bedside. Overall doing okay. Need to work on discharge planning. We will start oral hypoglycemic agent only while eating, fall precaution, and aspiration precaution. Thank you and we will follow with you. Austin Hurst MD
[2017-05-10 17:09] VITALS: BP 135/62; PULSE 103; RESP 20; TEMP 98; O2SAT 95
== END 2017-05-10 18:20 | DRG 638 ==
LOC: ED 23:09 → ERH 04-30 02:21 → 5RNO 04-30 03:45 → OBSVTOIN 05-01 23:23
PROVIDERS: ADMIT Internal Medicine; ATTEND Internal Medicine
DX: E11.65 Type 2 diabetes mellitus with hyperglycemia (principal); F02.81 Dementia in other diseases classified elsewhere, unspecified severity, with behavioral disturbance; I12.0 Hypertensive chronic kidney disease with stage 5 chronic kidney disease or end stage renal disease; B95.7 Other staphylococcus as the cause of diseases classified elsewhere; E11.21 Type 2 diabetes mellitus with diabetic nephropathy; G30.9 Alzheimer's disease, unspecified; E87.8 Other disorders of electrolyte and fluid balance, not elsewhere classified; R13.12 Dysphagia, oropharyngeal phase; N18.5 Chronic kidney disease, stage 5; N25.81 Secondary hyperparathyroidism of renal origin; W19.XXXA Unspecified fall, initial encounter; E11.621 Type 2 diabetes mellitus with foot ulcer; E11.22 Type 2 diabetes mellitus with diabetic chronic kidney disease; B19.20 Unspecified viral hepatitis C without hepatic coma; G47.00 Insomnia, unspecified; D64.9 Anemia, unspecified; E03.9 Hypothyroidism, unspecified; E78.00 Pure hypercholesterolemia, unspecified; E78.5 Hyperlipidemia, unspecified; E86.9 Volume depletion, unspecified; F41.9 Anxiety disorder, unspecified; J20.9 Acute bronchitis, unspecified; K59.00 Constipation, unspecified; L29.9 Pruritus, unspecified; L97.519 Non-pressure chronic ulcer of other part of right foot with unspecified severity; M81.0 Age-related osteoporosis without current pathological fracture; M89.9 Disorder of bone, unspecified; R33.9 Retention of urine, unspecified; Z79.4 Long term (current) use of insulin; Z79.899 Other long term (current) drug therapy; Z87.440 Personal history of urinary (tract) infections; Z90.710 Acquired absence of both cervix and uterus; Z91.81 History of falling; Z88.8 Allergy status to other drugs, medicaments and biological substances

== ENCOUNTER 2017-11-29 22:52 | Inpatient (IN) | payer MEDICARE ==
--- NOTE | 2017-11-29 23:11 | ED PDOC ---
Arrival/HPI - General Time Seen by Provider: 11/29/17 22:59 Historian: Patient, Residential - History of Present Illness Narrative History of Present Illness (Text): 11/29/17 23:11 Vianey Larose is an 86 year old female, whose past medical history includes anemia, hypertension, hyperlipidemia, dementia, and NIDDM, who presents to the Emergency department [facility] for abnormal labs today. As per [facility] documentation, patient had a hemoglobin of 6.8. Patient denies any complaints. Limited HPI and ROS secondary to patient's dementia. Symptom Onset: Gradual Symptom Course: Unchanged Activities at Onset: Light Context: Home Past Medical History - Provider Review Nursing Documentation Reviewed: Yes - Infectious Disease Hx of Infectious Diseases: None - Tetanus Immunization Tetanus Immunization: Up to Date - Past Medical History Past Medical History: No Previous - Cardiac Hx Cardiac Disorders: Yes Hx Hypertension: Yes - Pulmonary Hx Respiratory Disorders: No - Neurological Hx Neurological Disorder: Yes Hx Alzheimer's Disease: Yes Hx Dementia: Yes Other/Comment: bells palsy - HEENT Hx HEENT Disorder: Yes (wears rx glasses) - Renal Hx Renal Disorder: No - Endocrine/Metabolic Hx Diabetes Mellitus Type 2: Yes (iddm) - Hematological/Oncological Hx Blood Disorders: Yes Hx Anemia: Yes - Integumentary Hx Dermatological Disorder: No - Musculoskeletal/Rheumatological Hx Falls: Yes - Gastrointestinal Hx Gastrointestinal Disorders: No - Genitourinary/Gynecological Hx Genitourinary Disorders: Yes Hx Incontinence: Yes Hx Urinary Tract Infection: Yes - Psychiatric Hx Psychophysiologic Disorder: No Hx Substance Use: No - Past Surgical History Past Surgical History: Non-Contributing - Surgical History Hx Hysterectomy: Yes - Anesthesia Hx Anesthesia: Yes Hx Anesthesia Reactions: No Hx Malignant Hyperthermia: No - Suicidal Assessment Feels Threatened In Home Enviroment: No Family/Social History - Physician Review Nursing Documentation Reviewed: Yes Family/Social History: Unknown Family HX Smoking Status: Never Smoked Hx Alcohol Use: No Hx Substance Use: No Hx Substance Use Treatment: No Allergies/Home Meds Allergies/Adverse Reactions: Allergies lisinopril Allergy (Verified 11/29/17 23:23) FATIGUE Home Medications: Home Meds Medication Instructions Recorded Confirmed Amlodipine Besylate [Norvasc] 5 mg PO DAILY 01/26/12 11/29/17 Insulin Human Isophane (NPH)1 3 units SC BID 01/26/12 11/29/17 [Novolin 70/30 70 U/ml-30 U/ml 10 ml] Risperidone 0.5 mg PO DAILY 01/26/12 11/29/17 Memantine [Namenda] 5 mg PO BID 08/25/14 11/29/17 Aspirin [Aspirin Chewable] 81 mg PO DAILY 04/29/17 11/29/17 Atorvastatin [Lipitor] 20 mg PO DAILY 04/29/17 11/29/17 Calcium Carbonate/Vitamin D3 1 tab PO BID 04/29/17 11/29/17 [Caltrate 600 + D Soft Chew Tab] Docusate [Colace] 200 mg PO DAILY 04/29/17 11/29/17 Folic Acid/Vit B Complex and C 1 tab PO DAILY 04/29/17 11/29/17 [Maia-Ester Tablet] Insulin Detemir [Levemir] 15 units SQ Q12H 04/29/17 11/29/17 Montelukast [Singulair] 10 mg PO DAILY 04/29/17 11/29/17 Review of Systems - Review of Systems Systems not reviewed;Unavailable: Dementia Physical Exam Vital Signs Reviewed: Yes Vital Signs Temp Pulse Resp BP Pulse Ox 11/29/17 23:14 98.3 F 87 20 145/56 L 100 Temperature: Afebrile Blood Pressure: Normal Pulse: Regular Respiratory Rate: Normal Appearance: Positive for: Well-Appearing, Non-Toxic, Comfortable Pain Distress: None Mental Status: Positive for: Confused - Systems Exam Head: Present: Atraumatic, Normocephalic Pupils: Present: PERRL Extroacular Muscles: Present: EOMI Conjunctiva: Present: Normal Mouth: Present: Moist Mucous Membranes Neck: Present: Normal Range of Motion Respiratory/Chest: Present: Clear to Auscultation, Good Air Exchange. No: Respiratory Distress, Accessory Muscle Use Cardiovascular: Present: Regular Rate and Rhythm, Normal S1, S2. No: Murmurs Abdomen: No: Tenderness, Distention, Peritoneal Signs Back: Present: Normal Inspection Upper Extremity: Present: Normal Inspection. No: Cyanosis, Edema Lower Extremity: Present: Normal Inspection. No: Edema Neurological: Present: GCS=15, CN II-XII Intact, Speech Normal Skin: Present: Warm, Dry, Normal Color. No: Rashes Psychiatric: Present: Other (Confused) Medical Decision Making ED Course and Treatment: 11/29/17 23:11 Impression: 86 year old female sent from [facility] for low hemoglobin. Plan: -- EKG -- Labs, blood type and screen, cardiac enzymes -- Chest X-ray -- Reassess and disposition Prior Visits: Notes and results from previous visits were reviewed. On 04/29/2017, pt was seen in the Emergency department for hyperglycemia and foot swelling. Pt was admitted to the hospital for further evaluation. Progress Notes: Reviewed EKG, NSR at 85 bpm. Non-specific T wave changes. 11/30/17 01:03 Chest X-ray reviewed, shows no acute processes. 11/30/17 01:04 Pt labs noted, hgb: 6.6, hematocrit: 19.3. Consent for blood transfusion given over the phone by pt's daughter. Will transfuse pt. 11/30/17 01:[address] Son, who is aware and agrees with plan. Accepts pt in to her service. Pt will be admitted to Telemetry for anemia and renal insufficiency. Requests Dr. Holcomb on consult. - Lab Interpretations Lab Results: 11/30/17 00:14 11/30/17 00:14 Lab Results 11/30/17 00:15: Blood Type Pending, Antibody Screen Pending, Crossmatch See Detail, BBK History Checked Patient has bt 11/30/17 00:14: WBC 8.4 D, RBC 2.39 L, Hgb 6.6 L* D, Hct 19.3 L*, MCV 80.8 D, MCH 27.6, MCHC 34.2, RDW 21.1 H, Plt Count 151, MPV 8.8 11/30/17 00:14: Sodium 147, Potassium 4.4, Chloride 110 H, Carbon Dioxide 23, Anion Gap 18, BUN 86 H, Creatinine 7.5 H*, Est GFR ( Amer) 6, Est GFR ( Non-Af Amer) 5, Random Glucose 181 H, Calcium 8.7, Total Bilirubin 0.1 L, AST 31 , ALT 22, Alkaline Phosphatase 76, Lactate Dehydrogenase 602, Total Creatine Kinase 141, Troponin I < 0.01, Total Protein 6.4, Albumin 3.5, Globulin 2.9, Albumin/Globulin Ratio 1.2 11/30/17 00:14: PT 11.1, INR 0.97, APTT 29.1 I have reviewed the lab results: Yes - RAD Interpretation Radiology Orders: 11/29/17 23:25 CHEST PORTABLE [RAD] Stat Soap Press Feeder: ED Physician - EKG Interpretation Interpreted by ED Physician: Yes Type: 12 lead EKG - Scribe Statement The provider has reviewed the documentation as recorded by the Conner Melendez Provider Scribe Attestation: All medical record entries made by the Carliibazael were at my direction and personally dictated by me. I have reviewed the chart and agree that the record accurately reflects my personal performance of the history, physical exam, medical decision making, and the department course for this patient. I have also personally directed, reviewed, and agree with the discharge instructions and disposition. Disposition/Present on Arrival - Present on Arrival Any Indicators Present on Arrival: No History of DVT/PE: No History of Uncontrolled Diabetes: No Urinary Catheter: No History of Decub. Ulcer: No History Surgical Site Infection Following: None - Disposition Have Diagnosis and Disposition been Completed?: Yes Diagnosis: Anemia, Renal insufficiency Disposition: HOSPITALIZED Disposition Time: :22 Patient Plan: Admission Condition: STABLE
[2017-11-30 00:43] LABS: ALB/GLOB RATIO 1.2 (1.1-1.8); ALBUMIN 3.5 g/dL (3.0-4.8); ALT/SGPT 22 U/L (7-56); AST/SGOT 31 U/L (14-36); BLOOD UREA NITROGEN 86 mg/dL (7-21); CALCIUM 8.7 mg/dL (8.4-10.5); GFR AFRICAN-AMERICAN 6; GFR NON-AFRICAN AMERICAN 5
[2017-11-30 00:48] LABS: INR 0.97 (0.93-1.08); MEAN CELL VOLUME 80.8 fl (80.0-105.0); MEAN CORPUSCULAR HEMOGLOBIN 27.6 pg (25.0-35.0); MEAN CORPUSCULAR HGB CONC 34.2 g/dl (31.0-37.0); MEAN PLATELET VOLUME 8.8 fl (7.0-11.0); PARTIAL THROMBOPLASTIN TIME 29.1 Seconds (25.1-36.5); PROTHROMBIN TIME 11.1 SECONDS (9.4-12.5); RBC 2.39 10^6/uL (3.5-6.1); RED CELL DISTRIBUTION WIDTH 21.1 % (11.5-14.5); WHITE BLOOD COUNT 8.4 10^3/ul (4.5-11.0)
[2017-11-30 00:52] LABS: HEMOGLOBIN 6.6 g/dL (12.0-16.0)
[2017-11-30 00:54] LABS: TROPONIN I < 0.01 ng/mL
[2017-11-30 05:11] VITALS: BMI 27.4
--- NOTE | 2017-11-30 07:41 | RAD ---
HISTORY: anemic COMPARISON: 04/30/2017 FINDINGS: LUNGS: No active pulmonary disease. PLEURA: No significant pleural effusion identified, no pneumothorax apparent. CARDIOVASCULAR: Mild cardiomegaly OSSEOUS STRUCTURES: No significant abnormalities. VISUALIZED UPPER ABDOMEN: Normal. OTHER FINDINGS: None. IMPRESSION: No active disease.
[2017-11-30] MEDS: Insulin Reg-LOW-Coverage SC SCH ×4 (09:08→21:37)
[2017-11-30] MEDS: Calcium-Vit D 250 mg-125 Units Tab UD PO SCH (09:12)
[2017-11-30] MEDS: Multivitamin Vitamin B Complex (Nephro-Vite) Tab PO SCH (09:14)
[2017-11-30] MEDS ORDERED: Ergocalciferol 50,000 Intl Units Cap PO SCH (11:30)
--- NOTE | 2017-11-30 13:28 | CARD ---
APPROVED REPORT EKG Measurement Heart [id number] <Conclusion> Normal sinus rhythm Nonspecific T wave abnormality Abnormal ECG
[2017-11-30 19:07] VITALS: O2SAT 98
--- NOTE | 2017-11-30 20:41 | CON ---
DATE: 11/30/2017 NEPHROLOGY CONSULTATION HISTORY OF PRESENT ILLNESS: Patient is an 86-year-old female with past medical history of hypertension, diabetes since over 35 years, hyperlipidemia, and dementia; [facility] resident, sent to ED due to abnormal labs. Nephrology is being consulted for advanced renal insufficiency. Patient is unable to give full history due to her dementia status; otherwise, patient denies any complaints; denies any shortness of breath, chest pain; denies any nausea, vomiting, diarrhea; reportedly eating well; no change in appetite; no dysgeusia (change in taste). Patient was admitted 7 months ago after presenting with hyperglycemia and lethargy. At that time, patient already had serum creatinine in mid 4s with eGFR of 10 mL/minute. At that time, extensive discussion was undertaken with daughter regarding overall poor renal prognosis; unclear if patient was following with outpatient mini shifter in the interim. PAST MEDICAL HISTORY: Taken from chart as above; also has an admission within the past 2 years for belligerent behavior. FAMILY HISTORY: Extensive history of dementia in multiple family numbers. SOCIAL HISTORY: Patient was never a smoker. REVIEW OF SYSTEMS: CONSTITUTIONAL: Good appetite. HEENT: Denies difficulty seeing. RESPIRATORY: Denies difficulty breathing or cough. CARDIOVASCULAR: No chest pain. GASTROINTESTINAL: As per HPI. GENITOURINARY: Unclear if patient is incontinent. MUSCULOSKELETAL: Patient denies any pains. NEUROLOGIC: Patient denies any tremors or headaches. SKIN: Patient denies pruritus. HEMATOLOGIC: Unable to obtain. PHYSICAL EXAMINATION: VITAL SIGNS: This morning, blood pressure 166/86, heart rate 88, respirations 18, temperature 98.6, O2 sat 100% on room air. GENERAL: In no distress. Able to verbalize responses. HEENT: No cervical lymphadenopathy. No scleral icterus. RESPIRATORY: Lungs are clear to auscultation bilaterally. No rales or rhonchi. No wheezes. CARDIOVASCULAR: Heart sounds S1, S2 normal. No murmurs or gallops or rubs. GASTROINTESTINAL: Abdomen soft, mildly distended, nontender. GENITOURINARY: Questionable bladder distention. MUSCULOSKELETAL: Has some slight lower back tenderness. EXTREMITIES: No leg edema. SKIN: Warm. No cyanosis. PSYCHIATRIC: Somewhat confused. NEUROLOGIC: No obvious tremor, oriented to person only. LABORATORY DATA: CBC: WBC 8.4, hemoglobin 6.6, hematocrit 19.3, platelets 151. Chemistry panel: Sodium 147; potassium 4.4; chloride 110; bicarb 23; BUN 86; creatinine 7.5, increased from 4.5 in 04/2017; glucose 181; calcium 8.7; albumin 3.5. Chest x-ray directly visualized, lungs clear. ASSESSMENT AND PLAN: 1. Chronic kidney disease, stage V. Patient with glomerular filtration rate that has decreased significantly since previous admission 7 months ago; progression of chronic kidney disease to close to end-stage renal disease status has been expected; currently with stable volume and electrolyte status; no overt uremic symptoms, however, history is not easy to obtain. No urgent indication to initiate hemodialysis. As discussed with the patient's daughter on previous admission, patient is not an ideal candidate for hemodialysis given her advanced dementia as she is at possible danger to herself and others when it comes to dialyzing via fistula or graft. Nevertheless, we will discuss options with patient's family and private medical doctor to arrive at a mutual agreement. Continue to avoid nephrotoxic insults including nonsteroidal antiinflammatory drugs, phosphate, enema. 2. Anemia of chronic kidney disease. Hemoglobin well below goal. Patient is currently is getting packed red blood cells transfusion. We will give dose of Aranesp 100 mcg subcutaneously and check iron studies as well. 3. Chronic kidney disease mineral bone disorder. Corrected calcium is within goal. Per outpatient labs, has low 25-hydroxy vitamin D level. PTH level is pending. We will start ergocalciferol 50,000 units weekly. 4. Hypertensive chronic kidney disease. Blood pressure currently uncontrolled. Patient, at rehab facility, was on amlodipine 10 mg daily, hydralazine 25 mg every 8 hours, Coreg 12.5 mg every 12 hours, and Lasix 40 mg daily. We will restart amlodipine 10 mg daily, Coreg 12.5 mg daily. We will add hydralazine if needed. We will hold off on giving Lasix for now. Thank you for this referral. We will be following up closely. Aniket Holcomb MD
[2017-11-30] MEDS ORDERED: Darbepoetin Alfa 100 mcg/ml Inj SC ONE (21:51)
--- NOTE | 2017-11-30 21:51 | CP.PCM.PCO ---
Assessment & Plan - Assessment and Plan (Free Text) Assessment: anemia likely related to CKD. PRBC transfusion for HB around 8 gm/dl. iron studies will not be accurate since received 2 units PRBC already. ALEXANDRA to be initiated. Aranesp 100 mcgm weekly.
--- NOTE | 2017-12-01 04:48 | HP ---
CHIEF COMPLAINT: Abnormal labs. HISTORY OF PRESENT ILLNESS: Ms. Vianey Larose is 86-year-old, my private patient, resident of [facility], has history of anemia, hypertension, hypercholesterolemia, dementia, non-insulin dependent diabetes mellitus, came to the emergency department from senior care for decreased hemoglobin. The patient had hemoglobin of 6.8, but the patient is not a good historian due to dementia. She is not giving any complaints, looks like no fever. No nausea, vomiting or diarrhea. No hematuria or hematochezia. PAST MEDICAL HISTORY: Hypertension, dementia, Ramirez's palsy, diabetes mellitus type 2, non-insulin requiring; history of chronic anemia, urinary incontinence, history of hysterectomy. FAMILY HISTORY: Father and mother, noncontributory. HABITS: Never smoked. No drugs or ethanol. ALLERGIES: THE PATIENT IS ALLERGIC TO LISINOPRIL. HOME MEDICATIONS: Norvasc, Namenda, Lipitor, calcium with vitamin D, docusate, multivitamin, insulin and Singulair. REVIEW OF SYSTEMS: The patient was seen and examined at the bedside in her room in the telemetry. Looking comfortable, little bit anxious. No nausea, vomiting or diarrhea. No hematuria or hematochezia. No swelling of the legs. No chest pain or palpitation. No headache or dizziness. PHYSICAL EXAMINATION: VITAL SIGNS: Temperature 98.3, pulse 67, respiratory rate 20, blood pressure 145/56, pulse oximetry 100%. HEENT: Head is normocephalic and atraumatic. Eyes; PERRLA. Extraocular muscles intact. Conjunctivae clear. Nose patent. Mucous membranes moist. NECK: Supple. No carotid bruits. No JVD or thyromegaly. CHEST: Bilaterally symmetrical. HEART: S1, S2 positive. LUNGS: Clear to auscultation. ABDOMEN: Soft. Bowel sounds positive. No organomegaly. EXTREMITIES: No edema. No cyanosis. NEUROLOGICAL: Patient is awake and alert. Moving all 4 extremities. No focal deficits. LABORATORY DATA: White blood cells 8.4, hemoglobin 6.8, hematocrit 19.3, platelets 151. Sodium 141, potassium 4.4, BUN 86, creatinine 7.7, glucose 181. ASSESSMENT AND PLAN: Ms. Vianey Larose is an 86-year-old female with anemia, renal insufficiency, hyperglycemia, hyperchloremia, anemia, acute on chronic , typed and crossed 2 units of packed RBCs and transfuse, seen by Dr. Aniket Holcomb, the patient's rn community health. Hematology consult called also. Chronic kidney disease stage 5, glomerular filtration rate that has been decreased significantly since previous admission 7 months ago. Progression of chronic kidney disease to end-stage renal disease status has been expected. Currently, with a stable volume and electrolyte status. No overt uremic symptom; however, history is not easy to obtain from the patient because the patient is severely demented. Hypertension, chronic kidney disease, currently blood pressure is uncontrolled, We will try to control that. The patient is on hydralazine, Coreg, Lasix, amlodipine. Gastrointestinal and deep venous thrombosis prophylaxis. Repeat labs. Jaqui Son MD MTDManny
[2017-12-01 06:32] LABS: MEAN CELL VOLUME 81.6 fl (80.0-105.0); MEAN CORPUSCULAR HEMOGLOBIN 27.7 pg (25.0-35.0); MEAN CORPUSCULAR HGB CONC 33.9 g/dl (31.0-37.0); MEAN PLATELET VOLUME 9.1 fl (7.0-11.0); RBC 3.58 10^6/uL (3.5-6.1); RED CELL DISTRIBUTION WIDTH 18.7 % (11.5-14.5); WHITE BLOOD COUNT 11.6 10^3/ul (4.5-11.0)
[2017-12-01 06:36] LABS: HEMOGLOBIN 9.9 g/dL (12.0-16.0)
[2017-12-01 06:49] LABS: IRON 56 ug/dL (45-180)
[2017-12-01 06:51] LABS: BLOOD UREA NITROGEN 84 mg/dL (7-21); CALCIUM 9.3 mg/dL (8.4-10.5); GFR AFRICAN-AMERICAN 7; GFR NON-AFRICAN AMERICAN 6; HDL CHOLESTEROL 60 mg/dL (29-60)
[2017-12-01 06:58] LABS: % IRON SATURATION 24 % (20-55); TOTAL IRON BINDING CAPACITY 235 ug/dL (265-497)
[2017-12-01] MEDS: Insulin Reg-LOW-Coverage SC SCH ×2 (08:26→17:39)
[2017-12-01] MEDS: Multivitamin Vitamin B Complex (Nephro-Vite) Tab PO SCH (08:26)
[2017-12-01 08:30] LABS: LDL CHOLESTEROL < 30 mg/dL (0-129)
[2017-12-01] MEDS ORDERED: Enoxaparin 30 mg Syringe SC SCH (10:00)
[2017-12-01] MEDS: Calcium-Vit D 250 mg-125 Units Tab UD PO SCH (11:08)
[2017-12-01 12:45] LABS: FOLATE > 20.0 ng/mL
--- NOTE | 2017-12-01 13:43 | CP.PCM.PN ---
Subjective - Date & Time of Evaluation Date of Evaluation: 12/01/17 Time of Evaluation: 13:39 - Subjective Subjective: Nephrology Consultation Note Assessment: Stable Diabetic chronic Kidney Disease (E11.22) Hypertensive Chronic Kidney Disease (I12.9) Chronic Kidney Disease (N18.5) Stage5 likely due to DM Anemia (D64.9), Hyperphosphatemia (E83.39), Secondary Hyperparathyroidism (E21.1 ), HTN (I12.9), hx of acidosis severe advanced dementia Plan d/w daughter about their family decision and as per her, NO dialysis for patient due to her age and dementia. hence, will manage her without dialysis as per family wishes. Hypertension control with meds as ordered. Patient not on ACEI/ARB due to advanced CKD. increased hydralazine to 100 tid Monitor Input/Output, daily weights and renal function with basic metabolic panel continue with Vit D supplements also on iron supplements, MVI and weekly aransep as per heme Dose meds/antibiotics for reduced GFR. Avoid fleets enema/magnesium based laxatives. Avoid nephrotoxins/NSAIDs/ iodinated contrast (unless needed emergently) Glycemic control Further work up for as per primary team pt stable for d/c from renal perspective when planned Thanks for allowing me to participate in care of your patient. Will follow patient with you. Please call if any Qs. d/w daughter and team Dr Genaro Forman Office: [phone] Subjective: Noted events overnight. Patients unable to provide hx. on 1:1 and 2 points restraints. Physical Examination: General Appearance: Comfortable, in no acute respiratory distress, unco- operative . Vitals reviewed and noted as below Head; Atraumatic, normocephalic ENT: no ulcers no thrush. Tongue is midline. Oropharynx: no rash or ulcers. EYES: Pupils are equal, round and reactive to light accommodation. Eye muscles and extraocular movement intact. Sclera is anicteric. Neck; supple no lymphadenopathy, no thyromegaly or bruit Lungs: Normal respiratory rate/effort. Breath sounds bilateral equal and clear Heart: Normal rate. s1s2 normal. No rub or gallop. Extremities: no edema. No varicose veins Neurological: Patient is awake and severe demented Skin: Warm and dry. Normal turgor. No rash. Palpitation: Normal elasticity for age Abdomen: Abdomen is soft. Bowel sounds +. There is no abdominal tenderness, no guarding/rigidity no organomegaly Psych: lack insight and intermittent agitation MSK: no joint tenderness or swelling. Digits and nails normal, no deformity : kidney or bladder not palpable Labs/imaging reviewed. Past medical history, past surgical history, family history, social history, allergy reviewed and noted as below Family hx: no hx of CKD. Rest non-contributory Objective - Vital Signs/Intake and Output Vital Signs (last 24 hours): Temp Pulse Resp BP Pulse Ox 98 F 98 H 20 176/98 H 98 12/01/17 11:29 12/01/17 11:36 12/01/17 11:29 12/01/17 11:36 12/01/17 06:00 Intake and Output: 12/01/17 12/01/17 06:59 18:59 Intake Total 360 Output Total 300 Balance 60 - Medications Medications: Current Medications Amlodipine Besylate (Norvasc) 10 mg PO DAILY [facility] Aspirin (Aspirin Chewable) 81 mg PO DAILY [facility] Last Admin: 12/01/17 11:14 Dose: 81 mg Atorvastatin Calcium (Lipitor) 20 mg PO DIN [facility] Last Admin: 11/30/17 17:20 Dose: 20 mg Calcium/Vitamin D (Oscal-D 250 Mg-125 Units Tab) 1 tab PO DAILY [facility] Last Admin: 12/01/17 11:08 Dose: 1 tab Carvedilol (Coreg) 12.5 mg PO Q12H [facility] Last Admin: 12/01/17 11:36 Dose: 12.5 mg Docusate Sodium (Colace) 200 mg PO DAILY [facility] Last Admin: 12/01/17 11:08 Dose: 200 mg Enoxaparin Sodium (Lovenox) 30 mg SC DAILY [facility] PRN Reason: Protocol Last Admin: 12/01/17 11:07 Dose: 30 mg Ergocalciferol (Drisdol 50,000 Intl Units Cap) 1 cap PO Q7D [facility] Last Admin: 11/30/17 12:49 Dose: 1 cap Ferrous Gluconate (Fergon) 324 mg PO TID [facility] Hydralazine HCl (Apresoline) 100 mg PO Q8 [facility] Last Admin: 12/01/17 11:11 Dose: 100 mg Insulin Human Regular (Humulin R Low) 0 units SC ACHS [facility] PRN Reason: Protocol Last Admin: 12/01/17 08:26 Dose: 1 units Memantine (Namenda) 5 mg PO DAILY [facility] Last Admin: 12/01/17 11:09 Dose: 5 mg Montelukast Sodium (Singulair) 10 mg PO HS [facility] Last Admin: 11/30/17 21:54 Dose: 10 mg Risperidone (Risperdal Tab) 0.5 mg PO DAILY [facility] PRN Reason: Protocol Last Admin: 12/01/17 11:09 Dose: 0.5 mg Vitamin B Complex/Vit C/Folic Acid (Nephro-Ester) 1 tab PO 0800 [facility] Last Admin: 12/01/17 08:26 Dose: 1 tab - Labs Labs: 12/01/17 05:30 12/01/17 05:30 PT 11.1 SECONDS (9.4-12.5) 11/30/17 00:14 INR 0.97 (0.93-1.08) 11/30/17 00:14 APTT 29.1 Seconds (25.1-36.5) 11/30/17 00:14
[2017-12-01 18:45] VITALS: BP 171/80; RESP 18; TEMP 98.7
[2017-12-01 19:00] VITALS: PULSE 98
== END 2017-12-01 20:38 | DRG 699 ==
LOC: ED 22:52 → ERH 11-30 01:17 → 2RNO 11-30 03:13 → 2RSO 11-30 20:09
PROVIDERS: ADMIT Internal Medicine; ATTEND Internal Medicine
PROC: 30233N1 Transfusion of Nonautologous Red Blood Cells into Peripheral Vein, Percutaneous Approach (ICD-10-PCS; principal; 2017-11-30)
DX: E11.22 Type 2 diabetes mellitus with diabetic chronic kidney disease (principal); I12.0 Hypertensive chronic kidney disease with stage 5 chronic kidney disease or end stage renal disease; N18.5 Chronic kidney disease, stage 5; D63.1 Anemia in chronic kidney disease; E87.2 Acidosis; N25.81 Secondary hyperparathyroidism of renal origin; E78.5 Hyperlipidemia, unspecified; E78.00 Pure hypercholesterolemia, unspecified; E11.65 Type 2 diabetes mellitus with hyperglycemia; M89.9 Disorder of bone, unspecified; F02.80 Dementia in other diseases classified elsewhere, unspecified severity, without behavioral disturbance, psychotic disturbance, mood disturbance, and anxiety; G30.9 Alzheimer's disease, unspecified

== ENCOUNTER 2018-01-09 19:36 | Inpatient (IN) | payer MEDICARE, MEDICAID ==
--- NOTE | 2018-01-09 20:03 | ED PDOC ---
Arrival/HPI - General Chief Complaint: Hip Pain Time Seen by Provider: 01/09/18 19:43 Historian: [facility] - History of Present Illness Narrative History of Present Illness (Text): 01/09/18 19:44 A 87 year old female, whose past medical history includes diabetes, hypertension , and dementia, arrives from half-way and presents to the emergency department complaining of left hip pain. Per half-way, patient fell yesterday landing on left hip. At the time, patient had X-Ray performed and results found to be negative. However, after continued pain, patient has now been sent by her PMD, requesting diagnostic study, namely an MRI of left hip. Patient experiences worsening pain when attempting to move left hip. Patient has no other complaints at this time. Limited HPI and ROS due to patient being poorly communicative secondary to Alzheimer's. PMD: Dr. Son Past Medical History - Provider Review Nursing Documentation Reviewed: Yes - Infectious Disease Hx of Infectious Diseases: None - Tetanus Immunization Tetanus Immunization: Up to Date - Past Medical History Past Medical History: No Previous - Cardiac Hx Cardiac Disorders: No Hx Hypertension: Yes Other/Comment: unable to get history due to dementia - Pulmonary Other/Comment: unable to get history due to dementia - Neurological Other/Comment: unable to get history due to dementia - HEENT Hx HEENT Disorder: Yes (wears rx glasses) - Renal Other/Comment: renal insufficiency - Endocrine/Metabolic Hx Diabetes Mellitus Type 2: Yes - Hematological/Oncological Other/Comment: unable to get history due to dementia - Integumentary Hx Dermatological Disorder: No - Musculoskeletal/Rheumatological Hx Falls: Yes Hx Osteoporosis: Yes - Gastrointestinal Hx Gastrointestinal Disorders: No - Genitourinary/Gynecological Hx Incontinence: Yes - Psychiatric Hx Psychophysiologic Disorder: No Hx Substance Use: No - Past Surgical History Past Surgical History: Non-Contributing - Surgical History Hx Hysterectomy: Yes - Anesthesia Hx Anesthesia: Yes Hx Anesthesia Reactions: No Hx Malignant Hyperthermia: No - Suicidal Assessment Feels Threatened In Home Enviroment: No Family/Social History - Physician Review Nursing Documentation Reviewed: Yes Family/Social History: No Known Family HX Smoking Status: Never Smoked Hx Alcohol Use: No Hx Substance Use: No Hx Substance Use Treatment: No Allergies/Home Meds Allergies/Adverse Reactions: Allergies lisinopril Allergy (Verified 11/29/17 23:23) FATIGUE Home Medications: Home Meds Medication Instructions Recorded Confirmed Amlodipine Besylate [Norvasc] 5 mg PO DAILY 01/26/12 01/09/18 Insulin Human Isophane (NPH)1 3 units SC BID 01/26/12 01/09/18 [Novolin 70/30 70 U/ml-30 U/ml 10 ml] Risperidone 0.5 mg PO DAILY 01/26/12 01/09/18 Memantine [Namenda] 5 mg PO BID 08/25/14 01/09/18 Aspirin [Aspirin Chewable] 81 mg PO DAILY 04/29/17 01/09/18 Atorvastatin [Lipitor] 20 mg PO DAILY 04/29/17 01/09/18 Calcium Carbonate/Vitamin D3 1 tab PO BID 04/29/17 01/09/18 [Caltrate 600 + D Soft Chew Tab] Docusate [Colace] 200 mg PO DAILY 04/29/17 01/09/18 Folic Acid/Vit B Complex and C 1 tab PO DAILY 04/29/17 01/09/18 [Maia-Ester Tablet] Insulin Detemir [Levemir] 15 units SQ Q12H 04/29/17 01/09/18 Montelukast [Singulair] 10 mg PO DAILY 04/29/17 01/09/18 Review of Systems - Review of Systems Systems not reviewed;Unavailable: Dementia Physical Exam Vital Signs Reviewed: Yes Vital Signs Temp Pulse Resp BP Pulse Ox 01/09/18 19:39 97.9 F 105 H 20 163/90 H 100 Temperature: Afebrile Blood Pressure: Hypertensive Pulse: Regular Respiratory Rate: Normal Appearance: Positive for: Well-Appearing, Non-Toxic, Comfortable Pain Distress: None Mental Status: Positive for: other (alert and poorly communicative secondary to Alzheimer's). No: Alert and Oriented X 3 - Systems Exam Head: Present: Atraumatic, Normocephalic Pupils: Present: PERRL Extroacular Muscles: Present: EOMI Conjunctiva: Present: Normal Ears: Present: Normal Mouth: Present: Moist Mucous Membranes Pharnyx: Present: Normal Neck: Present: Normal Range of Motion, Other (neck is supple) Respiratory/Chest: Present: Clear to Auscultation, Good Air Exchange. No: Respiratory Distress, Accessory Muscle Use Cardiovascular: Present: Regular Rate and Rhythm, Normal S1, S2. No: Murmurs Abdomen: No: Tenderness, Distention, Peritoneal Signs Back: Present: Normal Inspection Upper Extremity: Present: Normal Inspection. No: Cyanosis, Edema Lower Extremity: Present: Neurovascularly Intact, Other (discomfort and pain in attempt of moving left hip) Neurological: Present: GCS=15, CN II-XII Intact, Speech Normal Psychiatric: Present: Alert, Other (poorly communicative secondary to Alzheimer' s) Medical Decision Making ED Course and Treatment: 01/09/18 19:48 Impression: 87 year old female with left hip pain. Plan: -- EKG -- Lower Extremity CT -- Chest X-ray -- Labs -- Reassess and disposition Prior Visits: Notes and results from previous visits were reviewed. Patient was last seen in the emergency department on 11/29/2017 for abnormal labs. Patient was admitted. Progress Notes: 01/09/18 22:20 CT of Lower Extremity reviewed by radiologist, shows: Acute left ischial and pubic fractures; limited evaluation of the left femur secondary to patient motion, no femoral fracture identified; remote left femoral fracture with intramedullary rods, no instrument failure 01/09/18 23:[address] Son, who is aware and agrees with Emergency department management plan, accepts patient under her service. As per request, Dr. Ellis will be on consult. Of note, patient has a history of worsening renal insufficiency, which both Dr. Son and family are aware of. As per PMD, family refused dialysis. - Lab Interpretations Lab Results: 01/09/18 20:20 01/09/18 20:20 Lab Results 01/09/18 20:20: Blood Type O POSITIVE, Antibody Screen Negative, BBK History Checked Patient has bt 01/09/18 20:20: WBC 14.2 H D, RBC 3.02 L, Hgb 9.0 L, Hct 27.6 L, MCV 91.4 D, MCH 29.8, MCHC 32.6, RDW 18.7 H, Plt Count 221, MPV 9.0 01/09/18 20:20: Sodium 151 H, Potassium 4.7, Chloride 111 H, Carbon Dioxide 24, Anion Gap 20, BUN 77 H, Creatinine 9.0 H* D, Est GFR ( Amer) 5, Est GFR ( Non-Af Amer) 4, Random Glucose 142 H, Calcium 9.3, Total Bilirubin 0.5, AST 43 H D, ALT 24, Alkaline Phosphatase 82, Lactate Dehydrogenase 662, Total Creatine Kinase 325 H, CK-MB (CK-2) 3.3, CK-MB (CK-2) % Cancelled, Troponin I 0.03 D, Total Protein 7.4, Albumin 3.9, Globulin 3.5, Albumin/Globulin Ratio 1.1 01/09/18 20:20: PT 12.5, INR 1.09 H, APTT 29.0 - RAD Interpretation Narrative RAD Interpretations (Text): 01/09/18 23:30 Chest X-Ray- No acute process(rotated) Radiology Orders: 01/09/18 19:47 CHEST PORTABLE [RAD] Stat 01/09/18 19:48 EXT LOWER W/O CONTRAST LEFT [CT] Stat Research And Evaluation Manager: ED Physician - EKG Interpretation EKG Interpretation (Text): 01/09/18 20:30 EKG-Sinus tachycardia@104,LVH,NSSTT changes Interpreted by ED Physician: Yes Type: 12 lead EKG - Medication Orders Current Medication Orders: Discontinued Medications Morphine Sulfate (Morphine) 2 mg IVP STAT STA Stop: 01/09/18 22:48 Last Admin: 01/09/18 23:33 Dose: 2 mg MAR Pain Assessment Document 01/09/18 23:33 RD (Rec: 01/09/18 23:34 RD [id number]) Pain Reassessment Is this a pain reassessment? No Sleep Is patient sleeping during reassessment? No Presence of Pain Presence of Pain Yes IVP Administration Document 01/09/18 23:33 RD (Rec: 01/09/18 23:34 RD [id number]) Charges for Administration # of IVP Administrations 1 - Scribe Statement The provider has reviewed the documentation as recorded by the Conner Alfaro Provider Scribe Attestation: All medical record entries made by the Conner were at my direction and personally dictated by me. I have reviewed the chart and agree that the record accurately reflects my personal performance of the history, physical exam, medical decision making, and the department course for this patient. I have also personally directed, reviewed, and agree with the discharge instructions and disposition. Disposition/Present on Arrival - Present on Arrival Any Indicators Present on Arrival: No History of DVT/PE: No History of Uncontrolled Diabetes: Yes Urinary Catheter: No History of Decub. Ulcer: No History Surgical Site Infection Following: None - Disposition Have Diagnosis and Disposition been Completed?: Yes Diagnosis: Dementia, CKD (chronic kidney disease) stage 5, GFR less than 15 ml/min, Renal insufficiency, Pelvic fracture, Intractable pain Disposition: HOSPITALIZED Disposition Time: 23:09 Patient Plan: Admission Patient Problems: Current Active Problems Problem Status Onset Dementia Acute Intractable pain Acute Pelvic fracture Acute Renal insufficiency Acute CKD (chronic kidney disease) stage 5, GFR less than 15 ml/min Chronic Condition: STABLE
[2018-01-09 20:27] LABS: MEAN CELL VOLUME 91.4 fl (80.0-105.0); MEAN CORPUSCULAR HEMOGLOBIN 29.8 pg (25.0-35.0); MEAN CORPUSCULAR HGB CONC 32.6 g/dl (31.0-37.0); RBC 3.02 10^6/uL (3.5-6.1); RED CELL DISTRIBUTION WIDTH 18.7 % (11.5-14.5); WHITE BLOOD COUNT 14.2 10^3/ul (4.5-11.0)
[2018-01-09 20:40] LABS: INR 1.09 (0.93-1.08); PROTHROMBIN TIME 12.5 SECONDS (9.4-12.5)
[2018-01-09 20:42] LABS: ALB/GLOB RATIO 1.1 (1.1-1.8); ALBUMIN 3.9 g/dL (3.0-4.8); CALCIUM 9.3 mg/dL (8.4-10.5)
[2018-01-09 20:47] LABS: TROPONIN I 0.03 ng/mL
[2018-01-09 20:58] LABS: CK-MB 3.3 ng/mL (0.0-3.6)
--- NOTE | 2018-01-09 22:06 | CT ---
EXAM: CT Left Lower Extremity Without Intravenous Contrast, Hip EXAM DATE/TIME: 01/09/2018 7:48 PM CLINICAL HISTORY: 87 years old, female; Injury or trauma; Fall; Initial encounter; Blunt trauma; Hip; Left; Prior surgery; Surgery date: 6+ months; Surgery type: HX lt femur FX and surgery; Additional info: Left hip/leg pain post fall TECHNIQUE: Axial computed tomography images of the left hip without intravenous contrast. All CT scans at this facility use at least one of these dose optimization techniques: automated exposure control; mA and/or kV adjustment per patient size (includes targeted exams where dose is matched to clinical indication); or iterative reconstruction. Coronal and sagittal reformatted images were created and reviewed. COMPARISON: DX - FOOT 3 VIEWS BI 2017-05-01 11:32 FINDINGS: Bones/joints: Bony structures are osteopenic. Sacrum is incompletely imaged. No acute sacral fracture is identified. Left ilium is intact. There are comminuted fractures of the left pubis. There are fractures of the left ischium. Left acetabulum is intact. Left femoral head is anatomically positioned in the acetabulum. There is streak artifact from intramedullary rods in the femoral neck and shaft. There is motion artifact limiting evaluation of the mid left femoral diaphysis. There is no instrument failure. Allowing for patient motion, no acute femoral fractures are identified. The knee is incompletely imaged. There is no effusion in the suprapatella bursa. Soft tissues: Technique limits evaluation of the soft tissues of the pelvic floor. Vasculature: There are vascular calcifications. Bowel: There is a fecal bolus in the rectum. Bladder: Bladder is distended IMPRESSION: Acute left ischial and pubic fractures; limited evaluation of the left femur secondary to patient motion, no femoral fracture identified; remote left femoral fracture with intramedullary rods, no instrument failure
[2018-01-09] MEDS ORDERED: Morphine 2 mg/ml ISec IVP STA (22:47)
[2018-01-10 03:57] VITALS: BMI 20.1
[2018-01-10] MEDS ORDERED: Morphine 2 mg/ml ISec IVP STA (05:09)
[2018-01-10] MEDS ORDERED: Pneumococcal 23-Valent Vaccine IM ONE (07:13)
[2018-01-10] MEDS ORDERED: ADVAIR INH SCH (07:15)
[2018-01-10] MEDS ORDERED: SEVELAMER CARBONATE 1.6 GM PO SCH (07:30)
--- NOTE | 2018-01-10 08:39 | RAD ---
HISTORY: fever COMPARISON: Portable chest 11/29/2017. FINDINGS: LUNGS: No active pulmonary disease. Linear atelectasis is suggests at the right base. The patient is sharply rotated toward the right limiting the interpretation. PLEURA: No significant pleural effusion identified, no pneumothorax apparent. CARDIOVASCULAR: Normal. OSSEOUS STRUCTURES: No significant abnormalities. VISUALIZED UPPER ABDOMEN: Normal. OTHER FINDINGS: None. IMPRESSION: Interval linear atelectasis or fibrosis seen at the right base. The patient is somewhat rotated toward the right limiting the interpretation overall. No acute cardiopulmonary pulmonary disease otherwise appreciable.
[2018-01-10] MEDS: Insulin Detemir 100 units/ml Vial (Levemir) SC SCH ×2 (08:45→20:54)
[2018-01-10] MEDS ORDERED: VITAMIN D3 5000 UNIT PO SCH (10:00)
[2018-01-10] MEDS ORDERED: SODIUM BICARBONATE 325 MG PO SCH (10:00)
[2018-01-10] MEDS ORDERED: Non Formulary Medication (Folic Acid/Vit B Complex And C [Rena-Vite Tablet] 1 TAB) PO SCH (10:00)
[2018-01-10] MEDS ORDERED: AMLODIPINE BESYLATE 10 MG PO SCH (10:00)
[2018-01-10] MEDS ORDERED: [UNRECOGNIZED DRUG - OTHER] PO SCH (10:00)
[2018-01-10] MEDS: HYDROmorphone 0.5 mg/0.5 ml ISec IVP PRN ×3 (10:14→22:26)
--- NOTE | 2018-01-10 13:06 | CARD ---
APPROVED REPORT EKG Measurement Heart [id number] <Conclusion> Sinus tachycardia Possible Left atrial enlargement Left ventricular hypertrophy with repolarization abnormality Abnormal ECG
--- NOTE | 2018-01-10 13:52 | RAD ---
PROCEDURE: PELVIS WITH OBLIQUE RADIOGRAPHS. HISTORY: pelvic fx COMPARISON: Pelvis radiograph 07/19/2014. TECHNIQUE: AP and bilateral oblique views of the pelvis been submitted for interpretation. FINDINGS: Prior intramedullary mariana and interconnecting screw is again seen the proximal to mid left femur unchanged in appearance. Diffuse osteopenia suggests osteoporosis once again with a comminuted fracture involving the distal left horizontal pubic ramus identified. Osteopenia and bowel obscure evaluation of the upper iliac bones medially as well as the sacrum and its upper segment. Bilateral sacroiliac and hip joint degenerative changes are appreciated with vascular calcifications in the medial thigh and inguinal regions bilaterally. No dislocation bilateral hips. IMPRESSION: Comminuted fracture distal left horizontal pubic ramus. Diffuse osteopenia suggests osteoporosis and limits evaluation nondisplaced fractures. CT may be useful for further characterization. Bilateral sacroiliac and hip joint degenerative changes are identified. Bowel obscures upper sacrum and bilateral iliac bones. Prior ORIF proximal left femur reiterated with the distal left femur not included in this exam.
[2018-01-10] MEDS: Enoxaparin 30 mg Syringe SC SCH (16:39)
[2018-01-10] MEDS: Non Formulary Medication (Folic Acid/Vit B Complex And C [Rena-Vite Tablet] 1 TAB) PO SCH (18:52)
[2018-01-10] MEDS: Arformoterol 15 mcg/2 ml Inh Sol IH SCH (20:33)
[2018-01-10] MEDS: Budesonide 0.5 mg/2 ml Inhal Susp UD IH SCH (20:33)
--- NOTE | 2018-01-11 01:55 | CON ---
DATE: 01/10/2018 PULMONARY CONSULTATION REFERRING PHYSICIAN: Jaqui Son MD. REASON FOR CONSULTATION: Status post fall with hip fracture, shortness of breath. HISTORY OF PRESENT ILLNESS: This is an 87-year-old female known to me from previous admission, has history of diabetes, hypertension, dementia, apparently had a fall day before at a [facility], complaining about left hip pain. She had a plain x-ray done which was negative. Sent to emergency room where a CT of the hip done, which shows a pelvic fracture. She was admitted for further workup, lying in the bed, daughter at bedside. Complaining of left leg pain, short of breath with exertion. No good appetite. No nausea, no vomiting, no diarrhea. PAST MEDICAL HISTORY: Diabetes, hypertension, and dementia, history of renal insufficiency, osteoporosis, incontinence. FAMILY HISTORY: No significant cardiopulmonary disease reported. SOCIAL HISTORY: Never smoked. ALLERGIES: TO LISINOPRIL, GETS FATIGUE. MEDICATIONS: She is on hydralazine 25 mg every 8 hour, Brovana inhaled twice a day, calcium plus vitamin D one tablet twice a day, Colace 200 mg daily, Coreg 12.5 mg twice a day, trazodone 25 mg at bedtime, Dilaudid 0.25 mg IV every 6 hour p.r.n., vitamin D 50,000 units every 7 days, multivitamins one tablet daily, Lasix 40 mg daily, insulin coverage, Lipitor 20 mg daily, Lovenox 30 mg subcu daily, Namenda 10 mg twice a day, Norvasc 10 mg daily, Pulmicort inhaled twice a day, Renagel p.r.n. basis, Seroquel 12.5 mg twice a day, Singulair 10 mg daily, sodium bicarb 325 mg twice a day, allopurinol 100 mg daily. REVIEW OF SYSTEMS: Sleepy, arousable. Family at bedside, received morphine. No headache, no rhinitis. Gets short of breath with exertion. No chest pain. No nausea, no vomiting. No abdominal pain. Has a left hip discomfort and swelling. PHYSICAL EXAMINATION: GENERAL: In no acute distress. VITAL SIGNS: Temperature is 98, heart rate 84, respiratory is 20, blood pressure 147/90, pulse ox is 100% on room air. HEENT: Moist mucous membrane. Crowded airway. NECK: Supple. No JVD. LUNGS: Have a fair airflow with a few rhonchi. HEART: S1 and S2. ABDOMEN: Soft, nontender, no organomegaly. MUSCULOSKELETAL: Left hip has a tender , no bruise, not much edema of the lower extremities. NEUROLOGICAL: Sleepy, arousable. LABORATORY DATA: Shows hemoglobin 9, hematocrit of 27.6, WBC 14,000, platelet is 221. INR 1.09, PTT 29. Sodium 151, potassium 4.7, chloride 111, bicarbonate 24, BUN 77, creatinine 9, glucose 142, calcium 9.3. AST 43, ALT 24, alk phos is 82. Albumin is 3.9. She has a CAT scan of the left hip, which is a poor quality, but shows acute left ischial and pubic fracture. No femur fracture noted. IMPRESSION AND PLAN: Status post fall with left ischial and pubic fracture, renal failure, hyperglycemia, history of chronic bronchitis, oropharyngeal dysphagia, anxiety disorder, dementia. Case discussed with the daughter at bedside. All the questions answered. I agree with the present management. Continue inhaled bronchodilator. Aspiration precaution. Will get swallow evaluation. May add IV fluid, orthopedic consult. Gastric and deep venous thrombosis prophylaxis. Follow up labs in the morning. Thank you and we will follow with you. Austin Hurst MD
[2018-01-11] MEDS: HYDROmorphone 0.5 mg/0.5 ml ISec IVP PRN ×2 (04:19→19:56)
--- NOTE | 2018-01-11 05:11 | CON ---
DATE: 01/10/2018 INPATIENT CONSULTATION REASON FOR CONSULT: Status post fall with pelvic fractures. Consult is as follows, HISTORY OF PRESENT ILLNESS: This is an 87-year-old female who by report had a fall and had complaints of left-sided pelvic pain. History is somewhat limited from the patient. She does have a history of having a prior left hip fracture that underwent an intramedullary nailing approximately 6 months ago. Today she complains of pain with movement of the left lower extremity. PHYSICAL EXAMINATION: GENERAL: This is an elderly female in no apparent distress. She is awake and alert. She is lying on the bed. EXTREMITIES: On examination, she is very apprehensive and has pain with any passive range of motion of the left hip. There is no gross deformity or crepitus is appreciated in the left lower extremity. She also looks like healed incisions on the lateral aspect of the left thigh consistent with previous surgery. Her thigh and calf are soft and nontender. She is able to move her ankle and toes. She does have a palpable DP. Examination of the right lower extremity again shows that no gross swelling or deformity. No crepitus is appreciated. She is tolerating passive range of motion in the right lower extremity without any significant pain. NEUROLOGIC: Grossly, she is neurovascularly intact distally. DIAGNOSTIC DATA: CAT scan of the left hip show what looks like left-sided superior and inferior rami fractures, looks like she has a previous left intertrochanteric fracture, hardware appears to be intact. There are no plain radiographs available for my review. IMPRESSION: Status post fall with left pelvic fracture. PLAN: I recommend that we get formal x-rays of the pelvis and left femur. At this point, her injuries appeared to be nonoperative. We will follow up with x-rays to ensure that there is no periprosthetic fracture. For now, also recommend DVT prophylaxis. Krishan Ellis MD [facility] # [id number]
[2018-01-11] MEDS: Insulin Detemir 100 units/ml Vial (Levemir) SC SCH ×2 (06:48→21:47)
[2018-01-11 06:58] LABS: IRON 17 ug/dL (45-180)
[2018-01-11 06:59] LABS: HDL CHOLESTEROL 52 mg/dL (29-60)
[2018-01-11] MEDS: Arformoterol 15 mcg/2 ml Inh Sol IH SCH (07:07)
[2018-01-11] MEDS: Budesonide 0.5 mg/2 ml Inhal Susp UD IH SCH (07:07)
[2018-01-11 07:08] LABS: % IRON SATURATION 9 % (20-55); TOTAL IRON BINDING CAPACITY 187 ug/dL (265-497)
[2018-01-11 07:10] LABS: LDL CHOLESTEROL 73 mg/dL (0-129)
--- NOTE | 2018-01-11 08:47 | RAD ---
PROCEDURE: Left Femur Radiographs. HISTORY: pelvic fx COMPARISON: None. TECHNIQUE: AP and Lateral Radiographs of the left femur. FINDINGS: FEMUR: Technically limited examination. Two views of the entire femur are not submitted. Status post ORIF left hip fracture. Intramedullary mariana traverses the entire diaphysis of the femur. No acute fracture identified. No lytic or blastic osseous lesion. SOFT TISSUES: Normal. OTHER FINDINGS: None. IMPRESSION: Limited examination. No acute fracture identified.
--- NOTE | 2018-01-11 08:57 | CP.PCM.PN ---
Subjective - Date & Time of Evaluation Date of Evaluation: 01/11/18 Time of Evaluation: 08:55 - Subjective Subjective: Pt awake but confused. Afebrile, VSS LLE: pain with passive ROM thigh soft,NT no knee effusion or crepitus RLE: no pain with ROM grossly NVI distally Reviewed pelvic and femur films Limited lateral view of distal femur Will order knee xrays If negative, begin progressive mobilization, WBAT cont DVT prophylaxis Objective - Vital Signs/Intake and Output Vital Signs (last 24 hours): Temp Pulse Resp BP Pulse Ox 98.6 F 93 H 20 157/71 H 95 01/11/18 06:00 01/11/18 06:48 01/11/18 06:00 01/11/18 06:48 01/11/18 06:00 Intake and Output: 01/11/18 01/11/18 06:59 18:59 Intake Total 240 Balance 240 - Medications Medications: Current Medications Allopurinol (Zyloprim) 100 mg PO DAILY [facility] Last Admin: 01/10/18 10:00 Dose: Not Given Amlodipine Besylate (Norvasc) 10 mg PO DAILY [facility] Last Admin: 01/10/18 16:43 Dose: Not Given Arformoterol Tartrate (Brovana) 15 mcg IH [id number] [facility] Last Admin: 01/11/18 07:07 Dose: 15 mcg Atorvastatin Calcium (Lipitor) 20 mg PO DIN [facility] Last Admin: 01/10/18 16:39 Dose: 20 mg Budesonide (Pulmicort Respules) 1 mg IH [id number] [facility] Last Admin: 01/11/18 07:07 Dose: 1 mg Carvedilol (Coreg) 12.5 mg PO Q12 [facility] Last Admin: 01/10/18 21:35 Dose: 12.5 mg Docusate Sodium (Colace) 200 mg PO DAILY [facility] Last Admin: 01/10/18 10:00 Dose: Not Given Enoxaparin Sodium (Lovenox) 30 mg SC DAILY [facility] PRN Reason: Protocol Last Admin: 01/10/18 16:39 Dose: 30 mg Ergocalciferol (Drisdol 50,000 Intl Units Cap) 1 cap PO Q7D [facility] Furosemide (Lasix) 40 mg PO DAILY [facility] Last Admin: 01/10/18 10:00 Dose: Not Given Hydralazine HCl (Apresoline) 25 mg PO Q8H [facility] Last Admin: 01/11/18 06:48 Dose: 25 mg Hydromorphone HCl (Dilaudid) 0.25 mg IVP Q6H PRN PRN Reason: Pain, severe (8-10) Last Admin: 01/11/18 04:19 Dose: 0.25 mg Insulin Detemir (Levemir) 15 unit SC Q12H [facility] Last Admin: 01/11/18 06:48 Dose: 15 units Memantine (Namenda) 10 mg PO BID [facility] Last Admin: 01/10/18 18:53 Dose: Not Given Montelukast Sodium (Singulair) 10 mg PO DAILY [facility] Last Admin: 01/10/18 16:40 Dose: 10 mg Non-Formulary Medication (Calcium Carbonate/Vitamin D3 [Caltrate 600 + D Soft Chew Tab]) 1 tab PO BID [facility] Last Admin: 01/10/18 18:51 Dose: Not Given Non-Formulary Medication (Folic Acid/Vit B Complex And C [Maia-Ester Tablet]) 1 tab PO DAILY [facility] Last Admin: 01/10/18 18:52 Dose: Not Given Quetiapine Fumarate (Seroquel) 12.5 mg PO Q12 [facility] PRN Reason: Protocol Last Admin: 01/10/18 21:32 Dose: 12.5 mg Sevelamer HCl (Renagel) 1,600 mg PO AC [facility] Last Admin: 01/10/18 16:43 Dose: 1,600 mg Sodium Bicarbonate (Sodium Bicarbonate Tab) 325 mg PO BID [facility] Last Admin: 01/10/18 18:53 Dose: 325 mg Trazodone HCl (Desyrel) 25 mg PO HS [facility] Last Admin: 01/10/18 21:34 Dose: 25 mg - Labs Labs: PT 12.5 SECONDS (9.4-12.5) 01/09/18 20:20 INR 1.09 (0.93-1.08) H 01/09/18 20:20 APTT 29.0 Seconds (25.1-36.5) 01/09/18 20:20
--- NOTE | 2018-01-11 09:33 | HP ---
DATE OF EXAM: 01/10/2018 Patient was seen and examined on the bedside on 01/10/18 , dc,for 01/10/18 CHIEF COMPLAINT: Hip pain. HISTORY OF PRESENT ILLNESS: Ms. Vianey Larose is an 87-year-old female with past medical history of diabetes mellitus, hypertension, dementia, renal insufficiency, came from the snf, [facility], complaining of left hip pain. Per snf, the patient fell landing on the left hip. At that time, the patient had x-ray performed and results were found to be negative. Per nursing staff that the patient had continuous pain and I requested to send the patient to [facility] Emergency Room for MRI of the left hip. The patient experienced worsening pain when attempting to move left hip. The patient has no fever, no chills. No nausea, vomiting, or diarrhea. No hematuria or hematochezia. Had dementia. it is hard to get complete history from her. PAST MEDICAL HISTORY: As above. COPD; renal insufficiency, family is refusing dialysis; diabetes mellitus type 2; osteoarthritis; fall; urinary incontinence; hysterectomy. FAMILY HISTORY: Father and mother, noncontributory. HABITS: Never smoked. No drugs. No ethanol. ALLERGIES: THE PATIENT IS ALLERGIC WITH LISINOPRIL. HOME MEDICATIONS: Amlodipine, insulin, Risperdal, Namenda, aspirin, Lipitor, calcium, Colace, folic acid, Singulair. REVIEW OF SYSTEMS: Patient was seen and examined at the bedside, one of the daughter was sitting on the bedside also. All questions answered. Patient is having pain in the left hip upon movement, so getting pain medications. No fever. No chills. No nausea, vomiting, or diarrhea. No headache. No dizziness. PHYSICAL EXAMINATION: VITAL SIGNS: Temperature 97.9, pulse 105, respiratory rate 20, blood pressure 163/90, pulse oximetry 100. HEENT: Head, normocephalic, atraumatic. Eyes, PERRLA. Extraocular muscles intact. Conjunctivae clear. Nose patent. Mucous membrane moist. NECK: Supple. No carotid bruits, JVD or thyromegaly. CHEST: Bilaterally symmetrical. HEART: S1 and S2 positive. LUNGS: Clear to auscultation. ABDOMEN: Soft. Bowel sounds present. No organomegaly. EXTREMITIES: No edema. No cyanosis. Range of motion is decreased of the left lower extremity. LABORATORY DATA: White blood cell is 14.2, hemoglobin 9, hematocrit 27.6, platelets 221. Sodium 151, potassium 4.7, BUN 77, creatinine 9, glucose 142. ASSESSMENT AND PLAN: Ms. Vianey Larose is an 87-year-old female with leukocytosis, anemia, hypernatremia, renal insufficiency, hyperglycemia, has mechanical fall, has dementia, intractable left hip pain, pelvic fracture, chronic kidney disease stage V, glomerular filtration rate less than 15. Doweler is on the case. Family is refusing dialysis. Lower extremity CAT scan done. Chest x-ray done. Pelvic and femur x-rays were done. Seen by Dr. Ellis. Waiting for the input. Discussion done with both of the daughters. All questions answered. Abnormal liver function test. GI and DVT prophylaxis. Repeat labs. We will follow up. Jaqui Son MD MTDD
[2018-01-11] MEDS: Enoxaparin 30 mg Syringe SC SCH (10:46)
[2018-01-11] MEDS: Non Formulary Medication (Folic Acid/Vit B Complex And C [Rena-Vite Tablet] 1 TAB) PO SCH (11:00)
[2018-01-11 15:50] LABS: FOLATE > 20.0 ng/mL
[2018-01-11] MEDS ORDERED: Arformoterol 15 mcg/2 ml Inh Sol IH SCH ×2 (17:35→18:00)
[2018-01-11] MEDS ORDERED: Budesonide 0.5 mg/2 ml Inhal Susp UD IH SCH ×2 (17:38→18:00)
--- NOTE | 2018-01-11 17:48 | RAD ---
PROCEDURE: Left Knee Radiographs. HISTORY: Pain. COMPARISON: None. FINDINGS: BONES: Diffuse osteopenia suggests osteoporosis. No acute fracture or destructive bony lesion identified. Distal segment left femoral intramedullary nail identified unremarkable in appearance. Heterotopic calcification is identified potentially within the patellar tendon and in the prepatellar soft tissues as well. Vascular calcifications are seen throughout the distal thigh and knee and proximal leg posterior soft tissues. JOINTS: No subluxation or dislocation. Degenerative cortical sclerosis appreciated throughout all 3 compartments suggestive of moderate osteoarthritis. JOINT EFFUSION: None. OTHER FINDINGS: None. IMPRESSION: No acute fracture dislocation identified. degenerative changes as discussed above throughout all 3 compartments. Intramedullary nail identified the distal left femur.
--- NOTE | 2018-01-11 20:05 | PN ---
DATE: 01/11/2018 PULMONARY PROGRESS NOTE REFERRING PHYSICIAN: Jaqui Son MD SUBJECTIVE: She is lying in the bed, sleepy, arousable. Night was unremarkable. Very poor p.o. appetite. No cough. No sputum production. No hemoptysis. Has some left hip pain. No dysuria. No leg pain or leg swelling. PHYSICAL EXAMINATION GENERAL: In no acute distress. VITAL SIGNS: Temperature is 98, heart rate is 86, respiratory rate is 20, blood pressure 116/81. HEENT: Moist mucous membrane. No ulcer or thrush noted. NECK: Supple. No JVD. LUNGS: Have a fair airflow with rhonchi. HEART: S1 and S2. ABDOMEN: Soft, nontender, nondistended. Left hip has tenderness. EXTREMITIES: There is no edema. NEUROLOGIC: Sleepy, arousable. Follows simple command. MEDICATIONS: She is on hydralazine 25 mg every 8 hours, Brovana inhaled twice a day, receiving multivitamin with calcium, Colace 200 mg daily, Coreg 12.5 mg twice a day, trazodone 25 mg at bedtime, Dilaudid 0.25 mg IV every 6 hour p.r.n., vitamin D 50,000 units weekly, also on folic acid plus vitamin B complex daily, Lasix 40 mg daily, Levemir 15 units subcu every 12 hours, Lipitor 20 mg daily, Lovenox 30 mg subcu daily, Namenda 10 mg b.i.d., Norvasc 10 mg daily, Pulmicort inhaled twice a day, Renagel 1600 mg before meals, quetiapine 12.5 mg twice a day, Singulair 10 mg daily, sodium bicarbonate 325 mg twice a day, allopurinol 100 mg daily. LABORATORY DATA: Showed blood sugar this morning 168. Had x-ray of her knee done today showed no acute dislocation or fracture, degenerative changes. Distal femur has nail identified. IMPRESSION AND PLAN: Status post fall with left ischial and pubic fracture, renal failure, hyperglycemia, history of chronic bronchitis, oropharyngeal dysphagia, anxiety disorder, dementia. Pulmonary point of view, doing okay. Keep head at 45 degrees. Aspiration precaution. Gastric prophylaxis and deep vein thrombosis prophylaxis. Follow up labs in the morning. Orthopedic surgical followup. Thank you and we will follow with you. Austin Hurst MD [facility] # [id number]
--- NOTE | 2018-01-12 04:36 | PN ---
DATE: 01/11/2018 SUBJECTIVE: The patient is an 87-year-old female. The patient was seen and examined at the bedside, sleepy, arousable. According to family, patient has poor appetite. Night was unremarkable. No cough. No shortness of breath. No nausea, vomiting, diarrhea. No hematuria or hematochezia. No dysuria. No swelling of the leg, but cannot move her legs because of the fracture. PHYSICAL EXAMINATION: VITAL SIGNS: Temperature 98, heart rate 86, respiratory 20, blood pressure 116/81. HEENT: Head: Normocephalic and atraumatic. Eyes: PERRLA. Extraocular muscles intact. Conjunctivae clear. Nose patent. Mucous membrane moist. NECK: Supple. No carotid bruits. No JVD or thyromegaly. CHEST: Bilaterally symmetrical. HEART: S1 and S2 positive. LUNGS: Clear to auscultation. ABDOMEN: Soft. Bowel sounds positive. No organomegaly. EXTREMITIES: No edema. No cyanosis, but movement of the lower extremities limited. NEUROLOGIC: Sleepy, arousable, follows simple commands. MEDICATIONS: Hydralazine, Brovana, Colace, Coreg, trazodone, Dilaudid, vitamin D, B complex, Lasix, Levemir, Lipitor, Lovenox, Namenda, Norvasc, Renagel, quetiapine, Singulair, sodium bicarbonate, allopurinol. LABORATORY DATA: Sugar 168. ASSESSMENT AND PLAN: Ms. Vianey Mchugh is an 87-year-old female, status post fall with left ischial and pubic fracture, renal failure. Family refuses dialysis. Hyperglycemia, history of chronic bronchitis, oropharyngeal dysphagia, anxiety, dementia, history of chronic obstructive pulmonary disease, aspiration precaution. Gastric and deep venous thrombosis prophylaxis. Orthopedics is on the case. Reviewed Dr. Ellis's notes. Reviewed pelvic and femur films. Limited lateral view of the distal femur as per Dr. Ellis and he ordered knee x/rays negative, but again, progressive mobilization. Weight bearing as tolerated. Continue deep venous thrombosis and gastrointestinal prophylaxis. Discussion done with the patient's daughter multiple times and the patient's nurse. Gastrointestinal and deep venous thrombosis prophylaxis given. We will followup. Jaqui Son MD [facility] # [id number] [place]
[2018-01-12] MEDS: HYDROmorphone 0.5 mg/0.5 ml ISec IVP PRN ×3 (04:43→20:37)
[2018-01-12 06:29] LABS: HEMOGLOBIN 8.4 g/dL (12.0-16.0); MEAN CELL VOLUME 92.9 fl (80.0-105.0); MEAN CORPUSCULAR HEMOGLOBIN 29.7 pg (25.0-35.0); MEAN CORPUSCULAR HGB CONC 31.9 g/dl (31.0-37.0); MEAN PLATELET VOLUME 10.5 fl (7.0-11.0); RBC 2.83 10^6/uL (3.5-6.1); RED CELL DISTRIBUTION WIDTH 16.9 % (11.5-14.5); WHITE BLOOD COUNT 11.4 10^3/ul (4.5-11.0)
[2018-01-12 07:13] LABS: CALCIUM 8.5 mg/dL (8.4-10.5)
[2018-01-12] MEDS ORDERED: Darbepoetin Alfa 60 mcg/ml Inj SC ONE (09:46)
--- NOTE | 2018-01-12 09:54 | CP.PCM.CON ---
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 Pt had a recent xray w/ no evidnece of fracture she was admitted for further work up to figure out etiology. She otherwise has advanced dementia is unable to give any further history. ros: a full detailed ros in unable to to be obtained pmh: as below famhx: no esrd sochx: no active smoke etoh of ivdu Physical Examination: VS as below General Appearance: Comfortable, in no acute respiratory distress Head; Atraumatic, normocephalic ENT: no ulcers no thrush. Tongue is midline. Oropharynx: no rash or ulcers. EYES: Pupils are equal, round Sclera is anicteric. Neck; supple no lymphadenopathy, no thyromegaly or bruit Lungs: Normal respiratory rate/effort. Breath sounds bilateral equal and clear Heart: Normal rate. s1s2 normal. No rub or gallop. Extremities: no edema. No varicose veins Neurological: Patient is awake and severe dementia Skin: Warm and dry. Normal turgor. No rash. Palpitation: Normal elasticity for age Abdomen: Abdomen is soft. Bowel sounds +. There is no abdominal tenderness, no guarding/rigidity no organomegaly Psych: lack insight and intermittent agitation MSK: no joint tenderness or swelling. Digits and nails normal, no deformity : kidney or bladder not palpable Past Patient History - Infectious Disease Hx of Infectious Diseases: None - Tetanus Immunizations Tetanus Immunization: Up to Date - Past Social History Smoking Status: Never Smoked - CARDIAC Hx Cardiac Disorders: No Hx Hypertension: Yes Other/Comment: unable to get complete history due to dementia - PULMONARY Other/Comment: unable to get complete history due to dementia - NEUROLOGICAL Hx Alzheimer's Disease: Yes - HEENT Hx HEENT Problems: Yes (wears rx glasses) - RENAL Other/Comment: renal insufficiency, CKD Stage V - ENDOCRINE/METABOLIC Hx Diabetes Mellitus Type 2: Yes - HEMATOLOGICAL/ONCOLOGICAL Other/Comment: unable to get history due to dementia - INTEGUMENTARY Hx Dermatological Problems: No - MUSCULOSKELETAL/RHEUMATOLOGICAL Hx Falls: Yes - GASTROINTESTINAL Hx Gastrointestinal Disorders: No - GENITOURINARY/GYNECOLOGICAL Hx Incontinence: Yes - PSYCHIATRIC Hx Substance Use: No - SURGICAL HISTORY Hx Hysterectomy: Yes - ANESTHESIA Hx Anesthesia: Yes Hx Anesthesia Reactions: No Hx Malignant Hyperthermia: No Meds Allergies/Adverse Reactions: Allergies Allergy/AdvReac Type Severity Reaction Status Date / Time lisinopril Allergy FATIGUE Verified 11/29/17 23:23 - Medications Medications: Current Medications Allopurinol (Zyloprim) 100 mg PO DAILY [facility] Last Admin: 01/11/18 10:50 Dose: 100 mg Amlodipine Besylate (Norvasc) 10 mg PO DAILY [facility] Last Admin: 01/11/18 10:49 Dose: 10 mg Atorvastatin Calcium (Lipitor) 20 mg PO DIN [facility] Last Admin: 01/11/18 17:21 Dose: 20 mg Carvedilol (Coreg) 12.5 mg PO Q12 [facility] Last Admin: 01/11/18 21:03 Dose: 12.5 mg Docusate Sodium (Colace) 200 mg PO DAILY [facility] Last Admin: 01/11/18 10:49 Dose: 200 mg Enoxaparin Sodium (Lovenox) 30 mg SC DAILY [facility] PRN Reason: Protocol Last Admin: 01/11/18 10:46 Dose: 30 mg Ergocalciferol (Drisdol 50,000 Intl Units Cap) 1 cap PO Q7D [facility] Furosemide (Lasix) 40 mg PO DAILY [facility] Last Admin: 01/11/18 10:48 Dose: 40 mg Hydralazine HCl (Apresoline) 25 mg PO Q8H [facility] Last Admin: 01/12/18 01:34 Dose: 25 mg Hydromorphone HCl (Dilaudid) 0.25 mg IVP Q8H PRN PRN Reason: Pain, severe (8-10) Last Admin: 01/12/18 04:43 Dose: 0.25 mg Insulin Detemir (Levemir) 15 unit SC Q12H [facility] Last Admin: 01/11/18 21:47 Dose: 15 units Memantine (Namenda) 10 mg PO BID [facility] Last Admin: 01/11/18 17:21 Dose: 10 mg Montelukast Sodium (Singulair) 10 mg PO DAILY [facility] Last Admin: 01/11/18 10:53 Dose: 10 mg Non-Formulary Medication (Calcium Carbonate/Vitamin D3 [Caltrate 600 + D Soft Chew Tab]) 1 tab PO BID [facility] Last Admin: 01/11/18 18:04 Dose: Not Given Non-Formulary Medication (Folic Acid/Vit B Complex And C [Maia-Ester Tablet]) 1 tab PO DAILY [facility] Last Admin: 01/11/18 11:00 Dose: Not Given Quetiapine Fumarate (Seroquel) 12.5 mg PO Q12 [facility] PRN Reason: Protocol Last Admin: 01/11/18 21:04 Dose: 12.5 mg Sevelamer HCl (Renagel) 1,600 mg PO AC [facility] Last Admin: 01/11/18 16:09 Dose: 1,600 mg Sodium Bicarbonate (Sodium Bicarbonate Tab) 325 mg PO BID [facility] Last Admin: 01/11/18 17:21 Dose: 325 mg Trazodone HCl (Desyrel) 25 mg PO HS [facility] Last Admin: 01/11/18 21:04 Dose: 25 mg Results - Vital Signs Recent Vital Signs: Last Vital Signs Temp 99.3 F 01/12/18 06:00 Pulse 87 01/12/18 06:00 Resp 22 01/12/18 06:00 BP 157/62 H 01/12/18 06:00 Pulse Ox 97 01/12/18 06:00 - Labs Result Diagrams: 01/12/18 06:00 01/12/18 06:00 Labs: Laboratory Results - last 24 hr 01/11/18 01/11/18 01/11/18 06:15 06:15 11:06 WBC RBC Hgb Hct MCV MCH MCHC RDW Plt Count MPV Sodium Potassium Chloride Carbon Dioxide Anion Gap BUN Creatinine Est GFR ( Amer) Est GFR (Non-Af Amer) POC Glucose (mg/dL) 158 H Random Glucose Hemoglobin A1c 5.7 Calcium Vitamin B12 902 Folate > 20.0 TSH 3rd Generation 01/11/18 01/11/18 01/12/18 15:59 21:27 06:00 WBC 11.4 H RBC 2.83 L Hgb 8.4 L Hct 26.3 L MCV 92.9 MCH 29.7 MCHC 31.9 RDW 16.9 H Plt Count 218 MPV 10.5 Sodium Potassium Chloride Carbon Dioxide Anion Gap BUN Creatinine Est GFR ( Amer) Est GFR (Non-Af Amer) POC Glucose (mg/dL) 168 H 180 H Random Glucose Hemoglobin A1c Calcium Vitamin B12 Folate TSH 3rd Generation 01/12/18 01/12/18 06:00 06:00 WBC RBC Hgb Hct MCV MCH MCHC RDW Plt Count MPV Sodium 145 Potassium 4.8 Chloride 107 Carbon Dioxide 23 Anion Gap 20 BUN 92 H Creatinine 8.9 H* Est GFR ( Amer) 5 Est GFR (Non-Af Amer) 4 POC Glucose (mg/dL) Random Glucose 125 H Hemoglobin A1c Calcium 8.5 Vitamin B12 Folate TSH 3rd Generation 1.89
[2018-01-12] MEDS ORDERED: Iron Sucrose 100 mg/5 ml Inj IVP SCH (10:00)
[2018-01-12] MEDS: Insulin Detemir 100 units/ml Vial (Levemir) SC SCH ×2 (10:17→22:05)
[2018-01-12] MEDS: Enoxaparin 30 mg Syringe SC SCH (10:17)
[2018-01-12] MEDS ORDERED: Iron Sucrose 100 mg/5 ml Inj IVPB SCH (12:13)
--- NOTE | 2018-01-12 19:29 | PN ---
DATE: 01/12/2018 PULMONARY PROGRESS NOTE REFERRING PHYSICIAN: Jaqui Son MD SUBJECTIVE: She is lying in the bed, sleepy, arousable. Night was unremarkable. No cough. No sputum production. No chest pain. No vomiting. No leg swelling. Has a left hip discomfort. Poor appetite. PHYSICAL EXAMINATION: GENERAL: In no acute distress. VITAL SIGNS: Temperature is 99, heart rate is 87, respiratory rate is 22, blood pressure 157/62, pulse ox 97% on room air. HEENT: Moist mucous membrane. No ulcer or thrush noted. NECK: Supple. No JVD. LUNGS: Have a fair airflow with rhonchi. HEART: S1 and S2. ABDOMEN: Soft, nontender. No organomegaly. Left hip has a tenderness. EXTREMITIES: No edema. NEUROLOGICAL: Awake and alert. Follows simple command. MEDICATIONS: She is on hydralazine 25 mg every 8 hour, Colace 200 mg daily, Coreg 12.5 mg twice a day, Desyrel 25 mg at bedtime, Dilaudid 0.25 mg IV every 8 hour p.r.n., vitamin D 50,000 units weekly, IV iron being given 100 mg daily, Lasix 40 mg daily, Levemir 14 units subcu every 12 hour, Lipitor 20 mg daily, Lovenox 30 mg subcu daily, Namenda 10 mg daily, Renagel 1600 mg, Seroquel 12.5 mg every 12 hour, Singulair 10 mg daily, sodium bicarbonate 325 mg 2 times a day, allopurinol 100 mg daily. LABORATORY DATA: Shows hemoglobin 8.4, hematocrit 26.3, WBC 11.4, platelet is 218. Sodium 145, potassium 4.8, chloride 107, bicarbonate 23, BUN is 92, creatinine 8.9, glucose 125, calcium is 8.5, phosphorus is 7, TSH 1.89. IMPRESSION AND PLAN: Status post fall with left ischial and pubic fracture, renal failure, hyperglycemia, history of chronic bronchitis, oropharyngeal dysphagia, anxiety disorder, dementia. Pulmonary point of view, doing okay. Keep head at 45 degrees. Aspiration precaution. Encouraged p.o. intake. Continue IV fluid. Nephrology followup. Orthopedic followup. Once cleared by Orthopedic, may need to get out of bed to chair. Fall precaution. According to Orthopedic note, she is not a surgical candidate. Follow up labs in the morning. Thank you and we will follow with you. Austin Hurst MD
[2018-01-13] MEDS: HYDROmorphone 0.5 mg/0.5 ml ISec IVP PRN ×3 (04:53→22:23)
[2018-01-13 06:34] LABS: HEMOGLOBIN 7.9 g/dL (12.0-16.0); MEAN CORPUSCULAR HGB CONC 32.6 g/dl (31.0-37.0); MEAN PLATELET VOLUME 10.3 fl (7.0-11.0); RBC 2.63 10^6/uL (3.5-6.1); RED CELL DISTRIBUTION WIDTH 16.4 % (11.5-14.5); WHITE BLOOD COUNT 10.2 10^3/ul (4.5-11.0)
[2018-01-13 07:16] LABS: CALCIUM 8.2 mg/dL (8.4-10.5)
[2018-01-13] MEDS: Insulin Detemir 100 units/ml Vial (Levemir) SC SCH ×2 (07:48→20:38)
[2018-01-13] MEDS: Non Formulary Medication (Folic Acid/Vit B Complex And C [Rena-Vite Tablet] 1 TAB) PO SCH (09:21)
[2018-01-13] MEDS: Enoxaparin 30 mg Syringe SC SCH (09:22)
--- NOTE | 2018-01-13 18:44 | PN ---
DATE: 01/13/2018 PULMONARY PROGRESS NOTE REFERRING PHYSICIAN: Jaqui Son MD. SUBJECTIVE: She is lying in the bed. Daughter is at bedside. Night was unremarkable. Has low-grade fever. No cough. No sputum production. No leg pain or leg swelling. Does have a left hip discomfort. OBJECTIVE: GENERAL: In no acute distress. VITAL SIGNS: Temperature is 98, T-max is 100.6, heart rate is 90, respiratory rate is 20, blood pressure 101/49, pulse ox 100% on room air. HEENT: Moist mucous membrane. Crowded airway. NECK: Supple. No JVD. LUNGS: Have a few scattered rhonchi. HEART: S1 and S2. ABDOMEN: Soft, nontender. No organomegaly. EXTREMITIES: Left hip is tender to touch. No bruise. Lower extremities: There is no edema. NEUROLOGICAL: Sleepy, arousable, but confused. MEDICATIONS: She is on hydralazine 25 mg every 8 hours, multivitamins daily, Colace 100 mg daily, Coreg 12.5 mg twice a day, trazodone 25 mg at bedtime, Dilaudid 0.25 mg every 8 hours p.r.n., vitamin D 50,000 units every 7 days, iron sucrose 100 mg daily, Lasix 40 mg daily, Levemir units subcu every 12 hours, Lipitor 20 mg daily, Lovenox 30 mg subcu daily, Namenda 10 mg twice a day, Norvasc 10 mg daily, Renagel 1600 mg p.o. before meals, Seroquel 12.5 mg twice a day, Singulair 10 mg daily, getting bicarbonate 325 mg twice a day, allopurinol 100 mg daily. LABORATORY DATA: Shows hemoglobin 7.9, hematocrit 24.2, WBC 10.2, platelet is 205. Sodium 143, potassium 4.7, chloride 107, bicarbonate 21, BUN 94, creatinine 9.7, glucose 118, calcium is 8.2. IMPRESSION AND PLAN: Status post fall with left ischial and pubic fracture, renal failure, hyperglycemia, chronic bronchitis, oropharyngeal dysphagia, anxiety disorder, dementia, has a low-grade fever. Spoke to the patient's daughter at bedside. All the questions answered. Will need therapy once cleared by Orthopedic. We will give Dulcolax suppository daily basis. Bladder scan to assure there is no urinary retention. We will send urine for culture and sensitivity and we will also get a chest x-ray to assure there is no pneumonia. Follow up CBC in the morning. Continue Colace. Encourage p.o. intake. Spoke to the patient's daughter at bedside. All the questions answered. Thank you and we will follow with you. Austin Hurst MD
[2018-01-14 07:15] LABS: HEMOGLOBIN 8.8 g/dL (12.0-16.0); MEAN CELL VOLUME 91.6 fl (80.0-105.0); MEAN CORPUSCULAR HEMOGLOBIN 29.6 pg (25.0-35.0); MEAN CORPUSCULAR HGB CONC 32.4 g/dl (31.0-37.0); MEAN PLATELET VOLUME 10.6 fl (7.0-11.0); RBC 2.97 10^6/uL (3.5-6.1); WHITE BLOOD COUNT 10.9 10^3/ul (4.5-11.0)
[2018-01-14 07:32] LABS: ALB/GLOB RATIO 1.1 (1.1-1.8); ALBUMIN 3.7 g/dL (3.0-4.8); CALCIUM 8.9 mg/dL (8.4-10.5)
[2018-01-14] MEDS: Enoxaparin 30 mg Syringe SC SCH (10:08)
[2018-01-14] MEDS: Non Formulary Medication (Folic Acid/Vit B Complex And C [Rena-Vite Tablet] 1 TAB) PO SCH (10:09)
--- NOTE | 2018-01-14 10:43 | RAD ---
HISTORY: Infiltrate. COMPARISON: No prior. FINDINGS: LUNGS: No active pulmonary disease. PLEURA: No significant pleural effusion identified, no pneumothorax apparent. CARDIOVASCULAR: No radiographic findings to suggest acute or significant cardiovascular disease. OSSEOUS STRUCTURES: No significant abnormalities. VISUALIZED UPPER ABDOMEN: Normal. OTHER FINDINGS: None. IMPRESSION: No active disease. No significant interval change compared to the prior examination(s).
[2018-01-14] MEDS: Insulin Reg-MEDIUM-Coverage SC SCH ×3 (12:08→22:26)
[2018-01-14] MEDS ORDERED: Insulin Reg-MEDIUM-Coverage SC SCH (16:30)
--- NOTE | 2018-01-14 18:49 | PN ---
DATE: 01/14/2018 PULMONARY PROGRESS NOTE REFERRING PHYSICIAN: Jaqui Son MD SUBJECTIVE: She is lying in the bed, head at 45 degrees. Awake, alert, and confused. Had a bowel movement yesterday. No vomiting, no hematuria. She is urinating and wetting the diaper. Still has a left hip discomfort. No leg swelling. OBJECTIVE: GENERAL: In no acute distress. VITAL SIGNS: Temperature is 98, heart rate 84, respiratory rate is 18, blood pressure 138/68, pulse ox 97% on room air. HEENT: Moist mucous membranes. Crowded airway. NECK: Supple. No JVD. LUNGS: Have a fair airflow with rhonchi. HEART: S1 and S2. ABDOMEN: Soft and nontender. No organomegaly. Left hip has a tenderness EXTREMITIES: No edema. NEUROLOGIC: Awake and alert. Does follow occasionally simple command, but confused. MEDICATIONS: She is on hydralazine 25 mg twice a day, receiving multivitamins, also getting Colace 200 mg daily, Coreg 12.5 mg twice a day, trazodone 25 mg at bedtime, Dilaudid 0.25 mg every 8 hours p.r.n. for severe pain, vitamin D 50,000 units every 7 days, Dulcolax daily rectally, insulin coverage, iron sucrose 100 mg daily, Lasix 40 mg daily, also on insulin 50 units subcu every 12 hours, Lipitor 20 mg daily Lovenox 30 mg subcu daily, Namenda 10 mg twice a day, Norvasc 10 mg daily, Renagel p.o. before meals, Seroquel 12.5 mg twice a day, Singulair 10 mg daily, bicarbonate 325 mg twice a day, allopurinol 100 mg daily. LABORATORY DATA: Shows hemoglobin 8.8, hematocrit 27.2, WBC 10.9, platelets 232. Sodium 145, potassium 5, chloride 107, bicarbonate 23. BUN 101, creatinine 9.4. Glucose 148. Calcium is 8.9. AST 30, ALT 27, alk phos is 73. Albumin is 3.7. Had a chest x-ray done, which was unremarkable. IMPRESSION AND PLAN: Status post fall with left ischial and pubic fracture, renal failure, hyperglycemia, chronic bronchitis, oropharyngeal dysphagia, anxiety disorder, dementia. Chest x-ray is unremarkable. Spoke to nursing staff, also spoke to the patient's daughter at bedside. All the questions answered. Requested if cleared by Orthopedics may get her out of bed to chair, but fall precaution. May have to do bladder scan to assure there is no urinary retention. Continue Dulcolax. Thank you and we will follow with you. Austin Hurst MD
[2018-01-14] MEDS: Insulin Detemir 100 units/ml Vial (Levemir) SC SCH (22:26)
--- NOTE | 2018-01-14 22:56 | CP.PCM.PN ---
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) Chronic Kidney Disease (N18.5) Stage5 likely due to DM Anemia (D64.9), Hyperphosphatemia (E83.39), Secondary Hyperparathyroidism (E21.1 ), HTN (I12.9), hx of acidosis severe advanced dementia Acidosis Plan Pt well known to our office, has advanced CKD, cr is about at b/l - multiple discussions in past admissions and outpt setting - 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 given advanced comorbidities and dementia, medical management BP reasonably controlled vit d weekly iv iron 100 mg iv x 10 doses and s/p one dose of aranesp last week continue to hold lasix monitor phos levels on nahco3, hco3 level at goal Objective - Vital Signs/Intake and Output Vital Signs (last 24 hours): Temp Pulse Resp BP Pulse Ox 97.9 F 84 18 169/75 H 93 L 01/14/18 22:19 01/14/18 22:19 01/14/18 22:19 01/14/18 22:19 01/14/18 22:19 Intake and Output: 01/14/18 01/15/18 18:59 06:59 Intake Total 360 Balance 360 - Medications Medications: Current Medications Allopurinol (Zyloprim) 100 mg PO DAILY [facility] Last Admin: 01/14/18 10:07 Dose: 100 mg Amlodipine Besylate (Norvasc) 10 mg PO DAILY [facility] Last Admin: 01/14/18 10:07 Dose: 10 mg Atorvastatin Calcium (Lipitor) 20 mg PO DIN [facility] Last Admin: 01/13/18 17:27 Dose: 20 mg Bisacodyl (Dulcolax) 10 mg RC DAILY [facility] Last Admin: 01/14/18 10:09 Dose: 10 mg Carvedilol (Coreg) 12.5 mg PO Q12 [facility] Last Admin: 01/14/18 21:27 Dose: 12.5 mg Docusate Sodium (Colace) 200 mg PO DAILY [facility] Last Admin: 01/14/18 10:07 Dose: 200 mg Enoxaparin Sodium (Lovenox) 30 mg SC DAILY [facility] PRN Reason: Protocol Last Admin: 01/14/18 10:08 Dose: 30 mg Ergocalciferol (Drisdol 50,000 Intl Units Cap) 1 cap PO Q7D [facility] Furosemide (Lasix) 40 mg PO DAILY [facility] Last Admin: 01/11/18 10:48 Dose: 40 mg Hydralazine HCl (Apresoline) 25 mg PO BID [facility] Last Admin: 01/14/18 17:43 Dose: 25 mg Hydromorphone HCl (Dilaudid) 0.25 mg IVP Q8H PRN PRN Reason: Pain, severe (8-10) Last Admin: 01/13/18 22:23 Dose: 0.25 mg Iron Sucrose 100 mg/ Sodium (Chloride) 105 mls @ 210 mls/hr IVPB DAILY [facility] Stop: 01/21/18 10:30 Last Admin: 01/14/18 10:10 Dose: 210 mls/hr Insulin Detemir (Levemir) 15 unit SC Q12 [facility] Last Admin: 01/14/18 22:26 Dose: Not Given Insulin Human Regular (Humulin R Med) 0 units SC ACHS [facility] PRN Reason: Protocol Last Admin: 01/14/18 22:26 Dose: Not Given Memantine (Namenda) 10 mg PO BID [facility] Last Admin: 01/14/18 10:08 Dose: 10 mg Montelukast Sodium (Singulair) 10 mg PO DAILY [facility] Last Admin: 01/14/18 10:07 Dose: 10 mg Non-Formulary Medication (Calcium Carbonate/Vitamin D3 [Caltrate 600 + D Soft Chew Tab]) 1 tab PO BID [facility] Last Admin: 01/14/18 10:14 Dose: Not Given Non-Formulary Medication (Folic Acid/Vit B Complex And C [Maia-Ester Tablet]) 1 tab PO DAILY [facility] Last Admin: 01/14/18 10:09 Dose: Not Given Quetiapine Fumarate (Seroquel) 12.5 mg PO Q12 [facility] PRN Reason: Protocol Last Admin: 01/14/18 21:27 Dose: 12.5 mg Sevelamer HCl (Renagel) 1,600 mg PO AC [facility] Last Admin: 01/14/18 15:32 Dose: Not Given Sodium Bicarbonate (Sodium Bicarbonate Tab) 325 mg PO BID [facility] Last Admin: 01/14/18 10:06 Dose: 325 mg Trazodone HCl (Desyrel) 25 mg PO HS [facility] Last Admin: 01/14/18 21:26 Dose: 25 mg - Labs Labs: 01/14/18 07:00 01/14/18 07:00 PT 12.5 SECONDS (9.4-12.5) 01/09/18 20:20 INR 1.09 (0.93-1.08) H 01/09/18 20:20 APTT 29.0 Seconds (25.1-36.5) 01/09/18 20:20
--- NOTE | 2018-01-15 05:39 | PN ---
DATE: 01/14/2017 SUBJECTIVE: The patient was seen and examined at the bedside on 01/14/2018. Daughter was standing on the bedside. Also the patient was sleepy, arousable. Had bowel movement yesterday. No coughing. No shortness of breath. Sometimes getting attacks of restlessness. Still has left hip discomfort, not participating in physical therapy. PHYSICAL EXAMINATION: VITAL SIGNS: Temperature 98, heart rate 84, respiratory rate 18, blood pressure 120/80 , pulse oximetry 97. HEENT: Head normocephalic, atraumatic. Eyes, PERRLA. Extraocular muscles intact. Conjunctivae clear. Nose patent. Mucous membrane moist. NECK: Supple. No carotid bruit. No JVD or thyromegaly. CHEST: Bilaterally symmetrical. HEART: S1 and S2 positive. LUNGS: Clear to auscultation. ABDOMEN: Soft. Bowel sounds positive. No organomegaly. EXTREMITIES: No edema. No cyanosis, but range of motion is decreased. NEUROLOGICAL: The patient is sleepy, arousable, follows simple commands, but is confused. LABORATORY DATA: Hemoglobin 8.8, hematocrit 27.2, white blood cells 7.9, platelets 232. Sodium 145, potassium 5, BUN 101, creatinine 9.4, AST 30, ALT 27. MEDICATIONS: Hydralazine, multivitamins, Colace, Coreg, trazodone, Dilaudid, vitamin D, Dulcolax, insulin coverage, Lasix, Lipitor, Lovenox, Namenda, Norvasc, Renagel. ASSESSMENT AND PLAN: Ms. Vianey Larose, 87 years old lady with multiple medical problems, status post fall with left ischial and pubic fracture, renal failure. Family is refusing dialysis. Director Of Sales is on the case. Hyperglycemia, chronic bronchitis, oropharyngeal dysphagia and anxiety disorder, advanced dementia, chest x-ray unremarkable. Spoke to nursing staff and the nursing paint department supervisor. Also, spoke to the patient's daughter on the bedside. Length of time discussion done. All questions answered. She wanted to stay overnight with mother. I spoke to the nurse and gave her permission to stay overnight. The patient needs physical therapy. Waiting for Dr. Ellis's okay. May have to do bladder scan to assess there is no urinary retention. Continue Dulcolax. Gastrointestinal and deep venous thrombosis prophylaxis. Repeat labs. We will follow up. Jaqui Son MD MTDManny
[2018-01-15] MEDS: HYDROmorphone 0.5 mg/0.5 ml ISec IVP PRN ×2 (06:49→17:02)
--- NOTE | 2018-01-15 08:31 | PN ---
DATE: 01/13/2018 SUBJECTIVE: Patient is an 87-year-old female. Patient is seen and examined at the bedside, looking restless. Daughter, Tanesha, was on the bedside also. Physical therapy team was on the bedside; patient was refusing physical therapy. Has low-grade fever. No cough, no sputum production. No swelling of the legs. Does have left hip discomfort. Leg motion is decreased. Kidneys are not working very well. Getting pain medications. PHYSICAL EXAMINATION: VITAL SIGNS: Temperature 98, T-max 100.6, blood pressure 101/49, respiratory rate 20. HEENT: Head: Normocephalic and atraumatic. Eyes: PERRLA. Extraocular muscles are intact. Conjunctivae are clear. Nose is patent. Mucous membranes are moist. NECK: Supple. No carotid bruit. No JVD or thyromegaly. CHEST: Bilaterally symmetrical. HEART: S1 and S2 positive. LUNGS: Clear to auscultation. ABDOMEN: Soft. Bowel sounds are present. No organomegaly. EXTREMITIES: No edema. No cyanosis. NEUROLOGIC: Patient is awake and alert. Moving all 4 extremities. No focal deficits. MEDICATIONS: Hydralazine, Colace, Coreg, trazodone, Dilaudid, vitamin D, Dulcolax, Lasix, Levemir, Lipitor, Namenda, Norvasc, Renagel, Seroquel, Singulair, bicarbonate, allopurinol. LABORATORY DATA: White blood cell 7.2, hemoglobin 7.9, hematocrit 24.2, platelets 205. Sodium 143, potassium 4.7, BUN 94, creatinine 9.7, glucose 183, calcium 8.2. ASSESSMENT AND PLAN: Ms. Vianey Larose, an 87-year-old female with leukocytosis, anemia, renal insufficiency; forest officer is on the case, daughter is constantly refusing dialysis. Discussion done with her also. Hypocalcemia, rule out sepsis. Chest x-ray done, results are not ready. Status post fall with left ischial and pubic fracture. Hyperglycemia, chronic bronchitis, oropharyngeal dysphagia, anxiety disorder, advanced dementia, low-grade fever. Dr. Hurst spoke to Tanesha, patient's daughter; even I spoke to the patient's daughter. No bowel movement, septic workup ordered. Chest x-ray done to rule out pneumonia, encouraged p.o. intake. Cigar Maker and surgeon is on the case. Repeat labs. We will follow up. Jaqui Son MD MTDD
--- NOTE | 2018-01-15 08:36 | PN ---
DATE: 01/12/2018 SUBJECTIVE: The patient is an 87-year-old female. The patient was seen and examined at the bedside on 01/12/2018, looking comfortable. No nausea, vomiting, or diarrhea. No hematuria or hematochezia. No swelling of the legs. No chest pain, no palpitation. The patient is awake, alert, but confused, has left hip discomfort, poor appetite. PHYSICAL EXAMINATION: VITAL SIGNS: Temperature 99, heart rate 87, respiratory rate 22, blood pressure 157/60, pulse oximetry 97% on room air. HEENT: Head: Normocephalic and atraumatic. Eyes: PERRLA. Extraocular muscles intact. Conjunctivae clear. Nose patent. Mucous membrane moist. NECK: Supple. No carotid bruits. No JVD or thyromegaly. LUNGS: Have fair airflow with few rhonchi. HEART: S1 and S2 positive. ABDOMEN: Soft. Bowel sounds present. No organomegaly. EXTREMITIES: No edema. No cyanosis, but range of motion is decreased. NEUROLOGIC: Awake, alert. Follows simple commands. MEDICATIONS: Hydralazine, Colace, Coreg, Desyrel, Dilaudid, vitamin D, iron, Lasix, Levemir, Lipitor, Lovenox, Namenda, Renagel, Seroquel, and Singulair. LABORATORY DATA: Hemoglobin 8.4, hematocrit 26.3, white blood cells 11.4, platelet 218. Sodium 145, potassium 4.8, BUN 92, creatinine 8.9. AST 129. ASSESSMENT AND PLAN: Ms. Vianey Larose is an 87-year-old female status post fall with left ischial and pubic fracture, renal failure. Project Engineering Director on the case, but family is refusing dialysis. Hyperglycemia, history of chronic bronchitis, chronic obstructive pulmonary disease, oropharyngeal dysphagia, anxiety disorder, dementia. According to Orthopedics, the patient does not need surgery. Keep head elevated at 45, aspiration precaution, encourage p.o. intake, IV hydration. Waiting for orthopedic clearance to get out of the bed. GI, deep vein thrombosis prophylaxis, repeat labs. We will follow up. Jaqui Son MD
[2018-01-15] MEDS: Insulin Reg-MEDIUM-Coverage SC SCH ×4 (09:08→22:31)
[2018-01-15] MEDS: Enoxaparin 30 mg Syringe SC SCH (09:14)
[2018-01-15] MEDS: Insulin Detemir 100 units/ml Vial (Levemir) SC SCH ×2 (10:21→22:35)
--- NOTE | 2018-01-15 11:16 | CP.PCM.CON ---
History of Present Illness - History of Present Illness History of Present Illness: Palliative consult requested by Dr Yessenia Son Reason:Goals of care and advance care planning 87 year old female with history of who was sent from [facility] with left hip pain after suffering a fall 24 hours earlier.She also companied of mild dyspnea with exertion. She denied nausea, vomiting, diarrhea, chills or dizziness. CT of lower extremity showed acute left ischial and pubic fractures, no new femoral fracture, s/p old left femoral fracture with intramedullary rods. PMH: DM, HTN,CKD dementia, osteoporosis, incontinence, s/p left ORIF. Family History: Significant for cardiopulmonary disease Social History: Never smoker, no alcohol or drug use. Resident of [facility] Advance Care Planning: The patient does not have an Advanced Directive. Review of Systems: As perHhPI, 12 point review otherwise negative. Labs: Wbc 10.9, Hgb 8.8. Plt 232, NA 1, K 5, glucose 169, [id number], Creat 9.4, Albumin 3.7 Vital Signs:T 97.8, P82, BP 150/70, P 100, R 20 , O2 sat 99 on room air Past Patient History - Infectious Disease Hx of Infectious Diseases: None - Tetanus Immunizations Tetanus Immunization: Up to Date - Past Social History Smoking Status: Never Smoked - CARDIAC Hx Hypertension: Yes - PULMONARY Other/Comment: unable to get complete history due to dementia - NEUROLOGICAL Hx Alzheimer's Disease: Yes - HEENT Hx HEENT Problems: Yes (wears rx glasses) - RENAL Other/Comment: renal insufficiency, CKD Stage V - ENDOCRINE/METABOLIC Hx Diabetes Mellitus Type 2: Yes - HEMATOLOGICAL/ONCOLOGICAL Other/Comment: unable to get history due to dementia - INTEGUMENTARY Hx Dermatological Problems: No - MUSCULOSKELETAL/RHEUMATOLOGICAL Hx Falls: Yes - GASTROINTESTINAL Hx Gastrointestinal Disorders: No - GENITOURINARY/GYNECOLOGICAL Hx Incontinence: Yes - PSYCHIATRIC Hx Substance Use: No - SURGICAL HISTORY Hx Hysterectomy: Yes - ANESTHESIA Hx Anesthesia: Yes Hx Anesthesia Reactions: No Hx Malignant Hyperthermia: No Meds Home Medications: Home Medication List Medication Instructions Recorded Confirmed Type Allopurinol [Zyloprim] 100 mg PO DAILY tab 01/12/18 Rx Atorvastatin [Lipitor] 20 mg PO DIN tab 01/12/18 Rx Enoxaparin [Lovenox] 30 mg SC DAILY syr 01/12/18 Rx Iron Sucrose [Venofer] 100 mg IVPB DAILY vial 01/12/18 Rx Sevelamer [Renagel] 1,600 mg PO AC tab 01/12/18 Rx Sodium Bicarbonate Tab 325 mg PO BID tab 01/12/18 Rx amLODIPine [Norvasc] 10 mg PO DAILY tab 01/12/18 Rx traZODone [Desyrel] 25 mg PO HS tab 01/12/18 Rx Allergies/Adverse Reactions: Allergies Allergy/AdvReac Type Severity Reaction Status Date / Time lisinopril AdvReac FATIGUE Verified 01/14/18 02:47 - Medications Medications: Current Medications Allopurinol (Zyloprim) 100 mg PO DAILY [facility] Last Admin: 01/15/18 09:10 Dose: 100 mg Amlodipine Besylate (Norvasc) 10 mg PO DAILY [facility] Last Admin: 01/15/18 09:09 Dose: 10 mg Atorvastatin Calcium (Lipitor) 20 mg PO DIN [facility] Last Admin: 01/13/18 17:27 Dose: 20 mg Bisacodyl (Dulcolax) 10 mg RC DAILY [facility] Last Admin: 01/15/18 10:20 Dose: 10 mg Carvedilol (Coreg) 12.5 mg PO Q12 [facility] Last Admin: 01/15/18 09:10 Dose: 12.5 mg Docusate Sodium (Colace) 200 mg PO DAILY [facility] Last Admin: 01/14/18 10:07 Dose: 200 mg Enoxaparin Sodium (Lovenox) 30 mg SC DAILY [facility] PRN Reason: Protocol Last Admin: 01/15/18 09:14 Dose: 30 mg Ergocalciferol (Drisdol 50,000 Intl Units Cap) 1 cap PO Q7D [facility] Furosemide (Lasix) 40 mg PO DAILY [facility] Last Admin: 01/11/18 10:48 Dose: 40 mg Hydralazine HCl (Apresoline) 25 mg PO BID [facility] Last Admin: 01/15/18 09:08 Dose: 25 mg Hydromorphone HCl (Dilaudid) 0.25 mg IVP Q8H PRN PRN Reason: Pain, severe (8-10) Last Admin: 01/15/18 06:49 Dose: 0.25 mg Iron Sucrose 100 mg/ Sodium (Chloride) 105 mls @ 210 mls/hr IVPB DAILY [facility] Stop: 01/21/18 10:30 Last Admin: 01/15/18 10:20 Dose: 210 mls/hr Insulin Detemir (Levemir) 15 unit SC Q12 [facility] Last Admin: 01/15/18 10:21 Dose: Not Given Insulin Human Regular (Humulin R Med) 0 units SC ACHS [facility] PRN Reason: Protocol Last Admin: 01/15/18 09:08 Dose: 1 units Memantine (Namenda) 10 mg PO BID [facility] Last Admin: 01/15/18 09:10 Dose: 10 mg Montelukast Sodium (Singulair) 10 mg PO DAILY [facility] Last Admin: 01/15/18 09:08 Dose: 10 mg Non-Formulary Medication (Calcium Carbonate/Vitamin D3 [Caltrate 600 + D Soft Chew Tab]) 1 tab PO BID [facility] Last Admin: 01/15/18 10:25 Dose: Not Given Non-Formulary Medication (Folic Acid/Vit B Complex And C [Maia-Ester Tablet]) 1 tab PO DAILY [facility] Last Admin: 01/14/18 10:09 Dose: Not Given Quetiapine Fumarate (Seroquel) 12.5 mg PO Q12 [facility] PRN Reason: Protocol Last Admin: 01/15/18 09:09 Dose: 12.5 mg Sevelamer HCl (Renagel) 1,600 mg PO AC [facility] Last Admin: 01/15/18 09:09 Dose: 1,600 mg Sodium Bicarbonate (Sodium Bicarbonate Tab) 325 mg PO BID [facility] Last Admin: 01/15/18 09:13 Dose: 325 mg Trazodone HCl (Desyrel) 25 mg PO HS [facility] Last Admin: 01/14/18 21:26 Dose: 25 mg Physical Exam - Constitutional Appears: Cachectic - Eye Exam Eye Exam: Normal appearance, PERRL - ENT Exam ENT Exam: Mucous Membranes Moist - Neck Exam Neck exam: Positive for: Normal Inspection - Respiratory Exam Respiratory Exam: Clear to Auscultation Bilateral, NORMAL BREATHING PATTERN - Cardiovascular Exam Cardiovascular Exam: REGULAR RHYTHM, +S1, +S2 - GI/Abdominal Exam GI & Abdominal Exam: Normal Bowel Sounds Additional comments: no tenderness - Extremities Exam Extremities exam: Positive for: pedal pulses present Additional comments: left hip tenderness - Back Exam Back exam: NORMAL INSPECTION - Neurological Exam Neurological exam: Alert - Skin Skin Exam: Dry, Warm - Additional Findings Additional findings: Palliative performance scale rating 40 % Results - Vital Signs Recent Vital Signs: Last Vital Signs Temp 98.1 F 01/15/18 07:23 Pulse 82 01/15/18 09:10 Resp 20 01/15/18 07:23 BP 155/75 H 01/15/18 09:10 Pulse Ox 99 01/15/18 07:23 - Labs Result Diagrams: 01/14/18 07:00 01/14/18 07:00 Labs: Laboratory Results - last 24 hr 01/14/18 01/14/18 01/15/18 15:58 21:22 06:34 POC Glucose (mg/dL) 194 H 105 169 H Assessment & Plan - Assessment and Plan (Free Text) Assessment: 87 year old female with history of dementia, HTN, DM, CKD who was admitted after suffering a fall with theft ischial and pubic fractures, HARIS on CKD, constipation, anemia and deconditioing The patient is alert, unable to to engage in detailed conversation regarding resuscitation status. I spoke with patient's daughter Hanh via phone. Hanh affirms that she is her mother's POA. Preliminary discussion regarding goals of care and advance care planning ensued. Daughter s unable to continue conversation because she is at work. Contact information given to daughter, she will follow up with me later today. Time spent in goals of care and advance care planning discussion with family member, 15 minutes Plan: Ga[place] of care and advance care planning Left and pubic fracture, deconditioning: Transfer to [facility] Constipation: Continue bowel regimen Docusate daily, Ducolax RC as needed, monitor for constipation CKD/chronic anemia: Known to Dr.D. Good, will follow up with renal as an outpatient.
[2018-01-15] MEDS: Non Formulary Medication (Folic Acid/Vit B Complex And C [Rena-Vite Tablet] 1 TAB) PO SCH (11:59)
--- NOTE | 2018-01-15 15:32 | CP.PCM.PN ---
Subjective - Date & Time of Evaluation Date of Evaluation: 01/15/18 Time of Evaluation: 15:29 - Subjective Subjective: Nephrology Consultation Note Assessment: Stable Pelvic fracture Diabetic chronic Kidney Disease (E11.22) Hypertensive Chronic Kidney Disease (I12.9) Chronic Kidney Disease (N18.5) Stage 5 likely due to DM Anemia (D64.9), Hyperphosphatemia (E83.39), Secondary Hyperparathyroidism (E21.1 ), HTN (I12.9), hx of acidosis severe advanced dementia Plan had d/w daughter and as per her, NO dialysis for patient due to her age and dementia. hence, pt is being managed without dialysis as per family wishes. Hypertension control with meds as ordered. Patient not on ACEI/ARB due to advanced CKD. lasix on hold Monitor Input/Output, daily weights and renal function with basic metabolic panel continue with Vit D supplements also on iron supplements, MVI and weekly aransep continue with phos binders, sodium bicarb Dose meds/antibiotics for reduced GFR. Avoid fleets enema/magnesium based laxatives. Avoid nephrotoxins/NSAIDs/ iodinated contrast (unless needed emergently) Glycemic control Further work up for as per primary team Thanks for allowing me to participate in care of your patient. Will follow patient with you. Please call if any Qs. had d/w team Dr Genaro Forman Office: [phone] Subjective: Noted events overnight. Patients unable to provide hx. Physical Examination: General Appearance: Comfortable, in no acute respiratory distress,co-operative . Vitals reviewed and noted as below Head; Atraumatic, normocephalic ENT: no ulcers no thrush. Tongue is midline. Oropharynx: no rash or ulcers. EYES: Pupils are equal, round and reactive to light accommodation. Eye muscles and extraocular movement intact. Sclera is anicteric. Neck; supple no lymphadenopathy, no thyromegaly or bruit Lungs: Normal respiratory rate/effort. Breath sounds bilateral equal and clear Heart: Normal rate. s1s2 normal. No rub or gallop. Extremities: no edema. No varicose veins Neurological: Patient is awake and severe demented Skin: Warm and dry. Normal turgor. No rash. Palpitation: Normal elasticity for age Abdomen: Abdomen is soft. Bowel sounds +. There is no abdominal tenderness, no guarding/rigidity no organomegaly Psych: lack insight MSK: no joint tenderness or swelling. Digits and nails normal, no deformity : kidney or bladder not palpable Labs/imaging reviewed. Past medical history, past surgical history, family history, social history, allergy reviewed and noted as below Family hx: no hx of CKD. Rest non-contributory Objective - Vital Signs/Intake and Output Vital Signs (last 24 hours): Temp Pulse Resp BP Pulse Ox 98.1 F 82 20 155/75 H 99 01/15/18 07:23 01/15/18 09:10 01/15/18 07:23 01/15/18 09:10 01/15/18 07:23 Intake and Output: 01/15/18 01/15/18 06:59 18:59 Intake Total 360 480 Balance 360 480 - Medications Medications: Current Medications Allopurinol (Zyloprim) 100 mg PO DAILY [facility] Last Admin: 01/15/18 09:10 Dose: 100 mg Amlodipine Besylate (Norvasc) 10 mg PO DAILY [facility] Last Admin: 01/15/18 09:09 Dose: 10 mg Atorvastatin Calcium (Lipitor) 20 mg PO DIN [facility] Last Admin: 01/13/18 17:27 Dose: 20 mg Bisacodyl (Dulcolax) 10 mg RC DAILY [facility] Last Admin: 01/15/18 10:20 Dose: 10 mg Carvedilol (Coreg) 12.5 mg PO Q12 [facility] Last Admin: 01/15/18 09:10 Dose: 12.5 mg Docusate Sodium (Colace) 200 mg PO DAILY [facility] Last Admin: 01/15/18 11:58 Dose: Not Given Enoxaparin Sodium (Lovenox) 30 mg SC DAILY [facility] PRN Reason: Protocol Last Admin: 01/15/18 09:14 Dose: 30 mg Ergocalciferol (Drisdol 50,000 Intl Units Cap) 1 cap PO Q7D [facility] Furosemide (Lasix) 40 mg PO DAILY [facility] Last Admin: 01/11/18 10:48 Dose: 40 mg Hydralazine HCl (Apresoline) 25 mg PO BID [facility] Last Admin: 01/15/18 09:08 Dose: 25 mg Hydromorphone HCl (Dilaudid) 0.25 mg IVP Q8H PRN PRN Reason: Pain, severe (8-10) Last Admin: 01/15/18 06:49 Dose: 0.25 mg Iron Sucrose 100 mg/ Sodium (Chloride) 105 mls @ 210 mls/hr IVPB DAILY [facility] Stop: 01/21/18 10:30 Last Admin: 01/15/18 10:20 Dose: 210 mls/hr Insulin Detemir (Levemir) 15 unit SC Q12 [facility] Last Admin: 01/15/18 10:21 Dose: Not Given Insulin Human Regular (Humulin R Med) 0 units SC ACHS [facility] PRN Reason: Protocol Last Admin: 01/15/18 12:04 Dose: 3 units Memantine (Namenda) 10 mg PO BID [facility] Last Admin: 01/15/18 09:10 Dose: 10 mg Montelukast Sodium (Singulair) 10 mg PO DAILY [facility] Last Admin: 01/15/18 09:08 Dose: 10 mg Non-Formulary Medication (Calcium Carbonate/Vitamin D3 [Caltrate 600 + D Soft Chew Tab]) 1 tab PO BID [facility] Last Admin: 01/15/18 10:25 Dose: Not Given Non-Formulary Medication (Folic Acid/Vit B Complex And C [Maia-Ester Tablet]) 1 tab PO DAILY [facility] Last Admin: 01/15/18 11:59 Dose: Not Given Quetiapine Fumarate (Seroquel) 12.5 mg PO Q12 [facility] PRN Reason: Protocol Last Admin: 01/15/18 09:09 Dose: 12.5 mg Sevelamer HCl (Renagel) 1,600 mg PO AC [facility] Last Admin: 01/15/18 12:06 Dose: 1,600 mg Sodium Bicarbonate (Sodium Bicarbonate Tab) 325 mg PO BID [facility] Last Admin: 01/15/18 09:13 Dose: 325 mg Trazodone HCl (Desyrel) 25 mg PO HS [facility] Last Admin: 01/14/18 21:26 Dose: 25 mg - Labs Labs: 01/14/18 07:00 01/14/18 07:00 PT 12.5 SECONDS (9.4-12.5) 01/09/18 20:20 INR 1.09 (0.93-1.08) H 01/09/18 20:20 APTT 29.0 Seconds (25.1-36.5) 01/09/18 20:20
--- NOTE | 2018-01-16 00:55 | PN ---
DATE: 01/15/2018 SUBJECTIVE: The patient was seen and examined on the bedside on 01/15/2018, looking comfortable. No nausea, vomiting, diarrhea. No hematuria or hematochezia. No headache. No dizziness. The patient is more awake and alert. No chest pain. No palpitation. No fever. No chills. PHYSICAL EXAMINATION: VITAL SIGNS: Temperature 98.1, pulse 62, respiratory rate 20, blood pressure 151/75, pulse oximetry 99. HEENT: Head normocephalic, atraumatic. Eyes PERRLA. Extraocular muscles intact. Conjunctivae clear. Nose patent. Mucous membrane moist. NECK: Supple. No carotid bruit. No JVD or thyromegaly. CHEST: Bilaterally symmetrical. HEART: S1 and S2 positive. LUNGS: Clear to auscultation. ABDOMEN: Soft. Bowel sounds positive. No organomegaly. EXTREMITIES: No edema. No cyanosis. NEUROLOGICAL: The patient is awake and alert. Follows simple commands. LABORATORY DATA: White blood cells 10.5, hemoglobin 8.8, hematocrit 27.2, platelets 232. Sodium 145, potassium 5, BUN 101, creatinine 9.4, glucose 148. ASSESSMENT AND PLAN: Ms. Vianey Larose, 87-year-old female with renal insufficiency, hyperglycemia, has dementia, hypertension, diabetes mellitus, chronic kidney disease, history of fall, has left ischial and pubic fracture, acute kidney injury on chronic kidney disease, constipation, anemia, deconditioning, advanced dementia. The patient is alert, unable to engage in detailed conversation regarding resuscitation status. Babs Arguelles spoke to the patient's daughter, Hanh via phone, power of transmission operator of the patient. Talking to the patient's family in detail about comfort care. Surgeon denied her surgery. Business Development Engineer is taking care of the patient as outpatient. The patient and family refused dialysis. Meanwhile, continue morphine, comfort care, physical therapy. Repeat labs. We will follow. Jaqui Son MD
--- NOTE | 2018-01-16 03:44 | PN ---
DATE: 01/15/2018 REFERRING PHYSICIAN: Dr. Jaqui Son. SUBJECTIVE: She is lying in the bed, sleepy, arousable, confused. No cough. No sputum production, very hard to get her out of bed to chair because of pain and the patient un-cooperative. Does have some urinary retention, but apparently did not let nursing staff do straight cath and finally she did voided though. No leg swelling. PHYSICAL EXAMINATION: GENERAL: No acute distress. VITAL SIGNS: Temperature is 98, heart rate 86, respiratory rate is 20, blood pressure 136/54, pulse ox 98% on room air. HEENT: Moist mucous membrane. No ulcer or thrush noted. NECK: Supple. No JVD. LUNGS: Fair airflow with rhonchi. HEART: S1, S2. ABDOMEN: Soft, nontender, no organomegaly. EXTREMITIES: Left hip has some tenderness. No edema. NEUROLOGIC: Awake, alert, nonverbal, inconsistently follow commands. MEDICATIONS: She is on hydralazine 25 mg twice a day, also getting vitamin D3 and calcium with vit chewable twice a day, Colace 200 mg daily, Coreg 12.5 mg twice a day, trazodone 25 mg at bed time, Dilaudid 0.25 mg every 8 hours p.r.n., getting vitamin D 50,000 units every 7 days, Dulcolax 10 mg rectally, insulin coverage, iron sucrose 100 mg daily, Lasix 40 mg daily, Levemir 15 units subcu every 12 hours, Lipitor 20 mg daily, Lovenox 30 mg subcu daily, Namenda 10 mg twice a day, Norvasc 10 mg daily, Seroquel 12.5 mg twice a day, Singulair 10 mg daily, sodium bicarbonate 325 mg twice a day, allopurinol 100 mg daily. LABORATORY DATA: Reviewed and noted blood sugar 173. IMPRESSION: Status post fall with left ischial and pubic fracture, renal failure, hyperglycemia, chronic bronchitis, oropharyngeal dysphagia, anxiety disorder, dementia, bladder outlet obstruction. Pulmonary point view, she is doing okay. Keep head at 45 degrees. Aspiration precaution. The patient refused a straight catheter, but need to watch closely for urine output, also had a bowel movement. I spoke to nursing staff. All the questions answered. We will continue to work to get her out of bed to chair if possible, physical therapy, but high risk for fall. Thank you and we will follow with you. Austin Hurst MD
[2018-01-16] MEDS: Insulin Reg-MEDIUM-Coverage SC SCH ×3 (09:28→17:30)
[2018-01-16] MEDS: Insulin Detemir 100 units/ml Vial (Levemir) SC SCH (10:00)
[2018-01-16] MEDS: Non Formulary Medication (Folic Acid/Vit B Complex And C [Rena-Vite Tablet] 1 TAB) PO SCH (11:35)
[2018-01-16] MEDS: Enoxaparin 30 mg Syringe SC SCH (11:42)
[2018-01-16] MEDS: HYDROmorphone 0.5 mg/0.5 ml ISec IVP PRN (13:39)
[2018-01-16 16:09] VITALS: BP 161/58; PULSE 86; RESP 28; TEMP 97.4; O2SAT 99
--- NOTE | 2018-01-16 17:16 | CP.PCM.PN ---
Subjective - Date & Time of Evaluation Date of Evaluation: 01/16/18 Time of Evaluation: 17:15 - Subjective Subjective: Nephrology Consultation Note Assessment: Stable Pelvic fracture Diabetic chronic Kidney Disease (E11.22) Hypertensive Chronic Kidney Disease (I12.9) Chronic Kidney Disease (N18.5) Stage 5 likely due to DM Anemia (D64.9), Hyperphosphatemia (E83.39), Secondary Hyperparathyroidism (E21.1 ), HTN (I12.9), hx of acidosis severe advanced dementia Plan had d/w daughter and as per her, NO dialysis for patient due to her age and dementia. hence, pt is being managed without dialysis as per family wishes. Hypertension control with meds as ordered. Patient not on ACEI/ARB due to advanced CKD. lasix on hold. increase hydralazine 50 mg bid Monitor Input/Output, daily weights and renal function with basic metabolic panel continue with Vit D supplements also on iron supplements, MVI and weekly aransep continue with phos binders, sodium bicarb Dose meds/antibiotics for reduced GFR. Avoid fleets enema/magnesium based laxatives. Avoid nephrotoxins/NSAIDs/ iodinated contrast (unless needed emergently) Glycemic control Further work up for as per primary team Thanks for allowing me to participate in care of your patient. Will follow patient with you. Please call if any Qs. had d/w team Dr Genaro Forman Office: [phone] Subjective: Noted events overnight. Patients unable to provide hx. Physical Examination: General Appearance: Comfortable, in no acute respiratory distress,co-operative . Vitals reviewed and noted as below Head; Atraumatic, normocephalic ENT: no ulcers no thrush. Tongue is midline. Oropharynx: no rash or ulcers. EYES: Pupils are equal, round and reactive to light accommodation. Eye muscles and extraocular movement intact. Sclera is anicteric. Neck; supple no lymphadenopathy, no thyromegaly or bruit Lungs: Normal respiratory rate/effort. Breath sounds bilateral equal and clear Heart: Normal rate. s1s2 normal. No rub or gallop. Extremities: no edema. No varicose veins Neurological: Patient is awake and severe demented Skin: Warm and dry. Normal turgor. No rash. Palpitation: Normal elasticity for age Abdomen: Abdomen is soft. Bowel sounds +. There is no abdominal tenderness, no guarding/rigidity no organomegaly Psych: lack insight MSK: no joint tenderness or swelling. Digits and nails normal, no deformity : kidney or bladder not palpable Labs/imaging reviewed. Past medical history, past surgical history, family history, social history, allergy reviewed and noted as below Family hx: no hx of CKD. Rest non-contributory Objective - Vital Signs/Intake and Output Vital Signs (last 24 hours): Temp Pulse Resp BP Pulse Ox 97.4 F L 86 28 H 161/58 H 99 01/16/18 14:00 01/16/18 14:00 01/16/18 14:00 01/16/18 14:00 01/16/18 14:00 Intake and Output: 01/16/18 01/16/18 06:59 18:59 Intake Total 120 Output Total 2 Balance 118 - Medications Medications: Current Medications Allopurinol (Zyloprim) 100 mg PO DAILY [facility] Last Admin: 01/16/18 10:19 Dose: 100 mg Amlodipine Besylate (Norvasc) 10 mg PO DAILY [facility] Last Admin: 01/16/18 10:18 Dose: 10 mg Atorvastatin Calcium (Lipitor) 20 mg PO DIN [facility] Last Admin: 01/15/18 17:44 Dose: 20 mg Bisacodyl (Dulcolax) 10 mg RC DAILY [facility] Last Admin: 01/16/18 10:22 Dose: 10 mg Carvedilol (Coreg) 12.5 mg PO Q12 [facility] Last Admin: 01/15/18 22:36 Dose: 12.5 mg Docusate Sodium (Colace Liquid) 200 mg PO DAILY [facility] Enoxaparin Sodium (Lovenox) 30 mg SC DAILY [facility] PRN Reason: Protocol Last Admin: 01/16/18 11:42 Dose: 30 mg Ergocalciferol (Drisdol 50,000 Intl Units Cap) 1 cap PO Q7D [facility] Furosemide (Lasix) 40 mg PO DAILY [facility] Last Admin: 01/11/18 10:48 Dose: 40 mg Hydralazine HCl (Apresoline) 25 mg PO BID [facility] Last Admin: 01/16/18 10:18 Dose: 25 mg Hydromorphone HCl (Dilaudid) 0.25 mg IVP Q8H PRN PRN Reason: Pain, severe (8-10) Last Admin: 01/16/18 13:39 Dose: 0.25 mg Iron Sucrose 100 mg/ Sodium (Chloride) 105 mls @ 210 mls/hr IVPB DAILY [facility] Stop: 01/21/18 10:30 Last Admin: 01/16/18 10:22 Dose: 210 mls/hr Insulin Detemir (Levemir) 15 unit SC Q12 [facility] Last Admin: 01/16/18 10:00 Dose: Not Given Insulin Human Regular (Humulin R Med) 0 units SC ACHS [facility] PRN Reason: Protocol Last Admin: 01/16/18 11:35 Dose: Not Given Memantine (Namenda) 10 mg PO BID [facility] Last Admin: 01/16/18 10:21 Dose: 10 mg Montelukast Sodium (Singulair) 10 mg PO DAILY [facility] Last Admin: 01/16/18 10:21 Dose: 10 mg Non-Formulary Medication (Calcium Carbonate/Vitamin D3 [Caltrate 600 + D Soft Chew Tab]) 1 tab PO BID [facility] Last Admin: 01/16/18 11:34 Dose: Not Given Non-Formulary Medication (Folic Acid/Vit B Complex And C [Maia-Ester Tablet]) 1 tab PO DAILY [facility] Last Admin: 01/16/18 11:35 Dose: Not Given Quetiapine Fumarate (Seroquel) 12.5 mg PO Q12 [facility] PRN Reason: Protocol Last Admin: 01/16/18 10:19 Dose: 12.5 mg Sevelamer HCl (Renagel) 1,600 mg PO AC [facility] Last Admin: 01/16/18 11:42 Dose: 1,600 mg Sodium Bicarbonate (Sodium Bicarbonate Tab) 325 mg PO BID [facility] Last Admin: 01/16/18 10:22 Dose: 325 mg Trazodone HCl (Desyrel) 25 mg PO HS [facility] Last Admin: 01/15/18 22:37 Dose: 25 mg - Labs Labs: 01/14/18 07:00 01/14/18 07:00 PT 12.5 SECONDS (9.4-12.5) 01/09/18 20:20 INR 1.09 (0.93-1.08) H 01/09/18 20:20 APTT 29.0 Seconds (25.1-36.5) 01/09/18 20:20
--- NOTE | 2018-01-16 20:05 | PN ---
DATE: 01/16/2018 PULMONARY PROGRESS NOTE REFERRING PHYSICIAN: Jaqui Son MD SUBJECTIVE: The patient is lying in the bed, head at 45 degrees. Sleepy, arousable, confused, does not follow commands. No cough. No sputum production. No vomiting. Does have a hip pain, although no leg swelling. OBJECTIVE: GENERAL: In no acute distress. VITAL SIGNS: Temperature is 98, heart rate 86, respiratory rate is 20, blood pressure 161/58, pulse ox of 96% on room air. HEENT: Moist mucous membrane. Crowded airway. NECK: Supple. No JVD. LUNGS: Fair airflow with few rhonchi. HEART: S1 and S2. ABDOMEN: Soft, nontender, no organomegaly. Left hip has a tenderness. EXTREMITIES: No edema. NEUROLOGIC: Sleepy, arousable. Follows simple command. MEDICATIONS: Reviewed and noted. No new changes reported since yesterday. LABORATORY DATA: Reviewed. Blood sugar this morning 209. IMPRESSION: Status post fall with a left ischial and pubic fracture; renal failure; hyperglycemia; chronic bronchitis; oropharyngeal dysphagia, on modified diet; dementia; bladder outlet obstruction. Pulmonary point of view, doing well. Spoke to the nursing staff. Continue pain management. Out of bed to chair with fall precaution. Will benefit from therapy. Not a surgical candidate for hip fracture. Continue supportive care. Thank you and we will follow with you Austin Hurst MD
[2019-01-17] MEDS ORDERED: Ergocalciferol 50,000 Intl Units Cap PO SCH (10:00)
== END 2018-01-16 18:27 | DRG 536 ==
LOC: ED 19:36 → ERH 23:01 → 5RNO 01-10 01:26 → 5RSO 01-12 18:05 → 5RNO 01-12 21:01 → 5RSO 01-13 15:12
PROVIDERS: ADMIT Internal Medicine; ATTEND Internal Medicine
PROC: 3E0F7GC Introduction of Other Therapeutic Substance into Respiratory Tract, Via Natural or Artificial Opening (ICD-10-PCS; principal; 2018-01-10)
DX: S32.592A Other specified fracture of left pubis, initial encounter for closed fracture (principal); N18.5 Chronic kidney disease, stage 5; I12.0 Hypertensive chronic kidney disease with stage 5 chronic kidney disease or end stage renal disease; E87.0 Hyperosmolality and hypernatremia; N25.81 Secondary hyperparathyroidism of renal origin; E87.2 Acidosis; F02.80 Dementia in other diseases classified elsewhere, unspecified severity, without behavioral disturbance, psychotic disturbance, mood disturbance, and anxiety; G30.9 Alzheimer's disease, unspecified; J44.9 Chronic obstructive pulmonary disease, unspecified; E11.65 Type 2 diabetes mellitus with hyperglycemia; E11.22 Type 2 diabetes mellitus with diabetic chronic kidney disease; R33.9 Retention of urine, unspecified; N32.0 Bladder-neck obstruction; D64.9 Anemia, unspecified; K59.00 Constipation, unspecified; M81.0 Age-related osteoporosis without current pathological fracture; E83.39 Other disorders of phosphorus metabolism; R13.12 Dysphagia, oropharyngeal phase; F41.9 Anxiety disorder, unspecified; W19.XXXA Unspecified fall, initial encounter; Y92.129 Unspecified place in nursing home as the place of occurrence of the external cause